=== PATIENT | female | born 1950 | race Caucasian/White ===

== ENCOUNTER 2019-03-19 19:24 | Inpatient (IN) | payer OTHER, MEDICAID ==
[~2019-03-19] VITALS: Ht 154.9 cm; Wt 64.1 kg
[~2019-03-19 19:24] MED LIST: ACET-141 GTB; ACET325T33 GTB; ALBU2.5V3 NEB; AMIN30LI GTB; AMLO1CAP70; ARGI1POW23 GTB; ASC500 GTB; ASPI-817 GTB; BISA10SU55 RC; CEPH500C GTB; CHLO473M4 MM; CLOT15CR6 TOP; CRAN3875 GTB; CRAN425C6 GTB; DESM0.1T; DESM0.1T GTB; DESM0.1T PO; ENOX40DI14 SC; GABA300C16 GTB; GLUC1KIT IJ; HYDR-3029 GTB; IBUP50TA; LACT1CAP57 GTB; LOSA50TA14 PO; MAGN400O19 GTB; MEG40/1 GTB; MELA3TAB17 GTB; METO-448 GTB; MULT-105 GTB; NA P133E39 RC; NOVO3I SC; OMEP40CA38 GTB; ONDA4TAB8 GTB; PANT40TA3 GTB; POTA20LI15 GTB; PRED20TA; SIMV20TA21 PO; UDMYL GTB; ZINC220T3 GTB
[2019-03-19] MEDS ORDERED: VANCOMYCIN 1 GM (PMX) 250 ML IVPB STA (19:30)
[2019-03-19] MEDS ORDERED: PIPER-TAZO 3.375 GM IV (PMX) 100 ML IVPB STA (19:30)
[2019-03-19] MEDS ORDERED: ACETAMINOPHEN 325 MG TAB PO PRN (20:00)
[2019-03-19] MEDS ORDERED: ONDANSETRON 4 MG INJ IV PRN (20:00)
[2019-03-19] MEDS ORDERED: ONDANSETRON 4 MG TAB GTB PRN (23:30)
[2019-03-19] MEDS ORDERED: VANCOMYCIN IV PER PHARMACY XX SCH (23:30)
[2019-03-19] MEDS ORDERED: SOD CHLORIDE 0.9% 1,000 ML IV STA (23:54)
[2019-03-20] VITALS (19 sets, daily range): BP systolic 100–160; BP diastolic 54–90; PULSE 67–110; RESP 18–25; Ht 154.9 cm; Wt 64.1 kg
[2019-03-20] MEDS: SOD CHLORIDE 0.9% 1,000 ML IV SCH ×3 (00:10→21:36)
[2019-03-20] MEDS: ALBUTEROL/IPRATROPIUM (NEB) 3 ML AMP HHN SCH ×4 (06:09→19:31)
[2019-03-20] MEDS ORDERED: VANCOMYCIN 750 MG (PMX) 250 ML IVPB SCH (08:00)
[2019-03-20] MEDS: ZINC SULFATE 220 MG CAP GTB SCH (09:00)
[2019-03-20] MEDS: MULTIVITAMINS 30 ML CUP GTB SCH (09:00)
[2019-03-20] MEDS: ASPIRIN (EC) 81 MG TAB PO SCH (09:00)
[2019-03-20] MEDS: GABAPENTIN 300 MG CAP GTB SCH ×2 (09:00→21:00)
[2019-03-20] MEDS: PANTOPRAZOLE (EC) 40 MG TAB PO SCH (09:00)
[2019-03-20] MEDS: ASCORBIC ACID 500 MG TAB GTB SCH (09:00)
[2019-03-20] MEDS: DESMOPRESSIN 0.1 MG TAB GTB SCH ×2 (09:00→21:00)
[2019-03-20] MEDS: VANCOMYCIN 750 MG (PMX) 250 ML IVPB SCH ×2 (09:29→21:38)
[2019-03-20] MEDS: CEFEPIME 1GM/50 ML (PMX) 50 ML IVPB SCH ×2 (12:06→22:13)
[2019-03-20] MEDS: NS + KCL 20 MEQ 1,000 ML IV SCH ×2 (17:13→23:40)
[2019-03-21] VITALS (35 sets, daily range): BP systolic 93–113; BP diastolic 52–63; PULSE 97–140; RESP 16–38
[2019-03-21] MEDS: ALBUTEROL/IPRATROPIUM (NEB) 3 ML AMP HHN SCH ×4 (01:51→19:31)
[2019-03-21] MEDS: ACETAMINOPHEN 650 MG SUPP PR PRN ×3 (01:57→22:35)
[2019-03-21] MEDS: NS + KCL 20 MEQ 1,000 ML IV SCH ×3 (05:45→21:16)
[2019-03-21] MEDS: ASCORBIC ACID 500 MG TAB GTB SCH (08:53)
[2019-03-21] MEDS: PANTOPRAZOLE (EC) 40 MG TAB PO SCH (08:53)
[2019-03-21] MEDS: GABAPENTIN 300 MG CAP GTB SCH ×2 (08:53→21:00)
[2019-03-21] MEDS: MULTIVITAMINS 30 ML CUP GTB SCH (08:53)
[2019-03-21] MEDS: ZINC SULFATE 220 MG CAP GTB SCH (08:53)
[2019-03-21] MEDS: ASPIRIN (EC) 81 MG TAB PO SCH (08:53)
[2019-03-21] MEDS: DESMOPRESSIN 0.1 MG TAB GTB SCH ×2 (08:53→21:00)
[2019-03-21] MEDS: CEFEPIME 1GM/50 ML (PMX) 50 ML IVPB SCH ×2 (09:04→21:19)
[2019-03-21] MEDS ORDERED: BUPIVACAINE 0.25%/EPI (SDV) 30 ML INJ ONE (10:44)
[2019-03-21] MEDS ORDERED: POVIDONE IODINE 10% 28.4 GM OINT ONE (10:56)
[2019-03-21] MEDS ORDERED: MIDAZOLAM 1 MG/ML 2 ML INJ IV PRN (11:00)
[2019-03-21] MEDS ORDERED: LABETALOL HCL 20MG INJ IV PRN (11:00)
[2019-03-21] MEDS ORDERED: MEPERIDINE 25 MG INJ IV PRN (11:00)
[2019-03-21] MEDS ORDERED: ONDANSETRON 4 MG INJ IV PRN (11:00)
[2019-03-21] MEDS ORDERED: FENTAnyl 50 MCG/ML VIAL IV PRN ×3 (11:00)
[2019-03-21] MEDS ORDERED: hydrALAzine 20 MG INJ IV PRN (11:00)
[2019-03-21] MEDS ORDERED: DIPHENHYDRAMINE 50 MG INJ IV PRN (11:00)
[2019-03-21] MEDS ORDERED: METOCLOPRAMIDE 10 MG INJ IV PRN (11:00)
[2019-03-21] MEDS ORDERED: EPHEDrine 25 MG/5 ML SYG IV PRN (11:00)
[2019-03-21] MEDS ORDERED: ROCURONIUM 50 MG INJ ONE (11:14)
[2019-03-21] MEDS: VANCOMYCIN 500 MG (PMX) 100 ML IVPB SCH (12:51)
[2019-03-21] MEDS ORDERED: DIGOXIN 500 MCG INJ IV ONE (15:00)
[2019-03-21] MEDS: METOPROLOL 5 MG INJ IV PRN (22:35)
[2019-03-21] MEDS: LEVALBUTEROL (NEB) 0.63 MG/3 ML AMP HHN SCH ×2 (22:50→23:06)
[2019-03-21] MEDS: IPRATROPIUM (NEB) 0.5 MG/2.5 ML AMP HHN SCH ×2 (22:50→23:05)
[2019-03-22] VITALS (24 sets, daily range): BP systolic 91–120; BP diastolic 44–60; PULSE 105–134; RESP 18–29
[2019-03-22] MEDS: VANCOMYCIN 500 MG (PMX) 100 ML IVPB SCH ×2 (01:12→13:56)
[2019-03-22] MEDS: NS + KCL 20 MEQ 1,000 ML IV SCH ×6 (02:20→21:38)
[2019-03-22] MEDS: IPRATROPIUM (NEB) 0.5 MG/2.5 ML AMP HHN SCH ×3 (07:49→23:47)
[2019-03-22] MEDS: LEVALBUTEROL (NEB) 0.63 MG/3 ML AMP HHN SCH ×3 (07:49→23:47)
[2019-03-22] MEDS ORDERED: BARIUM SULF 2% 450 ML BTL (BERRY SMOOTHIE) PO ONE (08:00)
[2019-03-22] MEDS: ZINC SULFATE 220 MG CAP GTB SCH (08:45)
[2019-03-22] MEDS: GABAPENTIN 300 MG CAP GTB SCH ×2 (08:45→21:00)
[2019-03-22] MEDS: ASCORBIC ACID 500 MG TAB GTB SCH (08:45)
[2019-03-22] MEDS: DESMOPRESSIN 0.1 MG TAB GTB SCH ×2 (08:45→21:00)
[2019-03-22] MEDS: MULTIVITAMINS 30 ML CUP GTB SCH (08:45)
[2019-03-22] MEDS: ASPIRIN (EC) 81 MG TAB PO SCH (09:00)
[2019-03-22] MEDS: PANTOPRAZOLE (EC) 40 MG TAB PO SCH (09:00)
[2019-03-22] MEDS: MEROPENEM 1 GM/50ML(PMX) 50 ML IVPB SCH ×2 (09:48→21:29)
[2019-03-22] MEDS: ACETAMINOPHEN 650 MG SUPP PR PRN (11:09)
[2019-03-22] MEDS: CEFEPIME 1GM/50 ML (PMX) 50 ML IVPB SCH (13:56)
[2019-03-22] MEDS ORDERED: LORAZEPAM 2 MG INJ IV PRN (19:00)
[2019-03-22] MEDS ORDERED: IOHEXOL 300MG/ML 30 ML BTL ONE (19:38)
[2019-03-22] MEDS: ACYCLOVIR 500 MG in DEXTROSE 5% 100 ML IVPB SCH (22:33)
[2019-03-23] VITALS (24 sets, daily range): BP systolic 100–121; BP diastolic 55–58; PULSE 112–126; RESP 16–23
[2019-03-23] MEDS: VANCOMYCIN 500 MG (PMX) 100 ML IVPB SCH ×2 (00:26→13:14)
[2019-03-23] MEDS: NS + KCL 20 MEQ 1,000 ML IV SCH ×2 (05:00→09:11)
[2019-03-23] MEDS: LEVALBUTEROL (NEB) 0.63 MG/3 ML AMP HHN SCH ×2 (07:47→15:41)
[2019-03-23] MEDS: IPRATROPIUM (NEB) 0.5 MG/2.5 ML AMP HHN SCH ×2 (07:47→15:41)
[2019-03-23] MEDS: ASPIRIN (EC) 81 MG TAB PO SCH (09:00)
[2019-03-23] MEDS: MULTIVITAMINS 30 ML CUP GTB SCH (09:00)
[2019-03-23] MEDS: ASCORBIC ACID 500 MG TAB GTB SCH (09:00)
[2019-03-23] MEDS: ZINC SULFATE 220 MG CAP GTB SCH (09:00)
[2019-03-23] MEDS: GABAPENTIN 300 MG CAP GTB SCH ×2 (09:00→21:00)
[2019-03-23] MEDS: PANTOPRAZOLE (EC) 40 MG TAB PO SCH (09:00)
[2019-03-23] MEDS: DESMOPRESSIN 0.1 MG TAB GTB SCH ×2 (09:00→21:00)
[2019-03-23] MEDS: MEROPENEM 1 GM/50ML(PMX) 50 ML IVPB SCH ×2 (09:10→21:57)
[2019-03-23] MEDS: ENOXAPARIN 30 MG/0.3 ML SYG SC SCH (09:23)
[2019-03-23] MEDS: ACYCLOVIR 500 MG in DEXTROSE 5% 100 ML IVPB SCH ×2 (10:03→23:11)
[2019-03-23] MEDS: FLUCONAZOLE 100 MG/50 ML 50 ML IVPB SCH (16:51)
[2019-03-23] MEDS: DEXTROSE 5% 1,000 ML IV SCH (18:07)
[2019-03-23] MEDS: ATENOLOL 25 MG TAB PO SCH (21:00)
[2019-03-23] MEDS: IPRATROPIUM (HFA) 12.9 GM INHALER INH SCH (23:15)
[2019-03-23] MEDS: LEVALBUTEROL (HFA) 15 GM INHALER INH SCH (23:15)
[2019-03-24] VITALS (22 sets, daily range): BP systolic 96–110; BP diastolic 48–55; PULSE 95–124; RESP 20–22
[2019-03-24] MEDS ORDERED: VANCOMYCIN 1 GM 250 ML IVPB SCH (02:00)
[2019-03-24] MEDS: IPRATROPIUM (HFA) 12.9 GM INHALER INH SCH ×2 (07:05→16:19)
[2019-03-24] MEDS: LEVALBUTEROL (HFA) 15 GM INHALER INH SCH ×2 (07:05→16:19)
[2019-03-24] MEDS: DEXTROSE 5% 1,000 ML IV SCH ×2 (07:20→20:40)
[2019-03-24] MEDS: ASCORBIC ACID 500 MG TAB GTB SCH (09:00)
[2019-03-24] MEDS: DESMOPRESSIN 0.1 MG TAB GTB SCH ×2 (09:00→20:44)
[2019-03-24] MEDS: MULTIVITAMINS 30 ML CUP GTB SCH (09:00)
[2019-03-24] MEDS: ASPIRIN (EC) 81 MG TAB PO SCH (09:00)
[2019-03-24] MEDS: ATENOLOL 25 MG TAB PO SCH ×2 (09:00→20:44)
[2019-03-24] MEDS: PANTOPRAZOLE (EC) 40 MG TAB PO SCH (09:00)
[2019-03-24] MEDS: GABAPENTIN 300 MG CAP GTB SCH ×2 (09:00→20:44)
[2019-03-24] MEDS: ZINC SULFATE 220 MG CAP GTB SCH (09:00)
[2019-03-24] MEDS: MEROPENEM 1 GM/50ML(PMX) 50 ML IVPB SCH ×2 (11:22→21:10)
[2019-03-24] MEDS: ENOXAPARIN 30 MG/0.3 ML SYG SC SCH (11:36)
[2019-03-24] MEDS: ACYCLOVIR 500 MG in DEXTROSE 5% 100 ML IVPB SCH ×2 (11:43→21:10)
[2019-03-24] MEDS: VANCOMYCIN 1 GM 250 ML IVPB SCH (14:22)
[2019-03-24] MEDS: FLUCONAZOLE 100 MG/50 ML 50 ML IVPB SCH (16:25)
[2019-03-25] VITALS (22 sets, daily range): BP systolic 94–119; BP diastolic 51–57; PULSE 74–119; RESP 20–22
[2019-03-25] MEDS: IPRATROPIUM (HFA) 12.9 GM INHALER INH SCH ×4 (08:00→23:50)
[2019-03-25] MEDS: LEVALBUTEROL (HFA) 15 GM INHALER INH SCH ×4 (08:00→23:50)
[2019-03-25] MEDS: ATENOLOL 25 MG TAB PO SCH ×2 (09:00→21:00)
[2019-03-25] MEDS: MEROPENEM 1 GM/50ML(PMX) 50 ML IVPB SCH ×2 (09:50→21:09)
[2019-03-25] MEDS: ACYCLOVIR 500 MG in DEXTROSE 5% 100 ML IVPB SCH ×2 (09:50→21:08)
[2019-03-25] MEDS: MULTIVITAMINS 30 ML CUP GTB SCH (09:51)
[2019-03-25] MEDS: GABAPENTIN 300 MG CAP GTB SCH ×2 (09:51→21:00)
[2019-03-25] MEDS: ASCORBIC ACID 500 MG TAB GTB SCH (09:51)
[2019-03-25] MEDS: ZINC SULFATE 220 MG CAP GTB SCH (09:51)
[2019-03-25] MEDS: DESMOPRESSIN 4 MCG INJ IV SCH ×2 (09:51→21:13)
[2019-03-25] MEDS: ASPIRIN (EC) 81 MG TAB PO SCH (09:51)
[2019-03-25] MEDS: PANTOPRAZOLE (EC) 40 MG TAB PO SCH (09:51)
[2019-03-25] MEDS: DEXTROSE 5% 1,000 ML IV SCH ×2 (10:00→16:36)
[2019-03-25] MEDS: ENOXAPARIN 30 MG/0.3 ML SYG SC SCH (10:43)
[2019-03-25] MEDS ORDERED: SOD CHLORIDE 0.9% 250 ML IV* ONE (10:44)
[2019-03-25] MEDS: VANCOMYCIN 1 GM 250 ML IVPB SCH (12:46)
[2019-03-25] MEDS: FLUCONAZOLE 100 MG/50 ML 50 ML IVPB SCH (16:33)
[2019-03-26] VITALS (23 sets, daily range): BP systolic 92–109; BP diastolic 46–67; PULSE 71–85; RESP 20
[2019-03-26] MEDS: IPRATROPIUM (HFA) 12.9 GM INHALER INH SCH ×3 (08:09→23:05)
[2019-03-26] MEDS: LEVALBUTEROL (HFA) 15 GM INHALER INH SCH ×3 (08:09→23:05)
[2019-03-26] MEDS: DESMOPRESSIN 4 MCG INJ IV SCH (09:00)
[2019-03-26] MEDS: MEROPENEM 1 GM/50ML(PMX) 50 ML IVPB SCH (09:00)
[2019-03-26] MEDS: ACYCLOVIR 500 MG in DEXTROSE 5% 100 ML IVPB SCH ×2 (09:00→20:23)
[2019-03-26] MEDS: ATENOLOL 25 MG TAB PO SCH ×2 (09:00→20:22)
[2019-03-26] MEDS: MULTIVITAMINS 30 ML CUP GTB SCH (09:47)
[2019-03-26] MEDS: ZINC SULFATE 220 MG CAP GTB SCH (09:47)
[2019-03-26] MEDS: PANTOPRAZOLE (EC) 40 MG TAB PO SCH (09:47)
[2019-03-26] MEDS: ASPIRIN (EC) 81 MG TAB PO SCH (09:48)
[2019-03-26] MEDS: ASCORBIC ACID 500 MG TAB GTB SCH (09:48)
[2019-03-26] MEDS: GABAPENTIN 300 MG CAP GTB SCH ×2 (09:48→20:22)
[2019-03-26] MEDS: ENOXAPARIN 30 MG/0.3 ML SYG SC SCH (10:06)
[2019-03-26] MEDS ORDERED: SOD CHLORIDE 0.9% 1,000 ML IV SCH (12:30)
[2019-03-26] MEDS ORDERED: LEVOFLOXACIN 500MG/D5W (PMX) 100 ML IVPB SCH (13:30)
[2019-03-26] MEDS ORDERED: AMIKACIN IV PER PHARMACY XX SCH (13:30)
[2019-03-26] MEDS: FLUCONAZOLE 100 MG/50 ML 50 ML IVPB SCH (17:12)
[2019-03-26] MEDS: AMIKACIN 350 MG in SOD CHLORIDE 0.9% 100 ML IVPB SCH (18:38)
[2019-03-26] MEDS: DEXTROSE 5% 1,000 ML IV SCH (20:22)
[2019-03-27] VITALS (21 sets, daily range): BP systolic 91–110; BP diastolic 49–68; PULSE 75–96; RESP 17–24
[2019-03-27] MEDS: ACCU-CHEK XX SCH (01:00)
[2019-03-27] MEDS: LEVALBUTEROL (HFA) 15 GM INHALER INH SCH ×3 (07:43→23:07)
[2019-03-27] MEDS: IPRATROPIUM (HFA) 12.9 GM INHALER INH SCH ×3 (07:43→23:07)
[2019-03-27] MEDS: DEXTROSE 5% 1,000 ML IV SCH ×2 (08:30→18:38)
[2019-03-27] MEDS: ACYCLOVIR 500 MG in DEXTROSE 5% 100 ML IVPB SCH (08:53)
[2019-03-27] MEDS: ZINC SULFATE 220 MG CAP GTB SCH (09:00)
[2019-03-27] MEDS: MULTIVITAMINS 30 ML CUP GTB SCH (09:00)
[2019-03-27] MEDS: ATENOLOL 25 MG TAB PO SCH ×2 (09:00→21:00)
[2019-03-27] MEDS: DESMOPRESSIN 4 MCG INJ IV SCH (09:00)
[2019-03-27] MEDS: ASCORBIC ACID 500 MG TAB GTB SCH (09:00)
[2019-03-27] MEDS: ASPIRIN (EC) 81 MG TAB PO SCH (09:00)
[2019-03-27] MEDS: PANTOPRAZOLE (EC) 40 MG TAB PO SCH (09:00)
[2019-03-27] MEDS: GABAPENTIN 300 MG CAP GTB SCH ×2 (09:00→21:00)
[2019-03-27] MEDS: ENOXAPARIN 30 MG/0.3 ML SYG SC SCH (09:01)
[2019-03-27] MEDS ORDERED: VANCOMYCIN 1 GM 250 ML IVPB SCH (13:00)
[2019-03-27] MEDS: LEVOFLOXACIN 250MG/D5W (PMX) 50 ML IVPB SCH (14:56)
[2019-03-27] MEDS: FLUCONAZOLE 100 MG/50 ML 50 ML IVPB SCH (16:55)
[2019-03-27] MEDS: AMIKACIN 350 MG in SOD CHLORIDE 0.9% 100 ML IVPB SCH (18:29)
[2019-03-28] VITALS (22 sets, daily range): BP systolic 86–116; BP diastolic 45–72; PULSE 72–101; RESP 20–26
[2019-03-28] MEDS: ACCU-CHEK XX SCH ×5 (01:00→21:00)
[2019-03-28] MEDS: LEVALBUTEROL (HFA) 15 GM INHALER INH SCH ×3 (07:55→23:01)
[2019-03-28] MEDS: IPRATROPIUM (HFA) 12.9 GM INHALER INH SCH ×3 (07:55→23:01)
[2019-03-28] MEDS: ZINC SULFATE 220 MG CAP GTB SCH (08:24)
[2019-03-28] MEDS: ASCORBIC ACID 500 MG TAB GTB SCH (08:24)
[2019-03-28] MEDS: GABAPENTIN 300 MG CAP GTB SCH ×2 (08:24→21:00)
[2019-03-28] MEDS: MULTIVITAMINS 30 ML CUP GTB SCH (08:24)
[2019-03-28] MEDS: ASPIRIN (EC) 81 MG TAB PO SCH (08:28)
[2019-03-28] MEDS: DESMOPRESSIN 4 MCG INJ IV SCH (08:29)
[2019-03-28] MEDS: PANTOPRAZOLE (EC) 40 MG TAB PO SCH (08:29)
[2019-03-28] MEDS: ACETAMINOPHEN 650 MG SUPP PR PRN (08:34)
[2019-03-28] MEDS: ATENOLOL 25 MG TAB PO SCH ×2 (08:34→21:00)
[2019-03-28] MEDS: ENOXAPARIN 30 MG/0.3 ML SYG SC SCH (08:44)
[2019-03-28] MEDS: DEXTROSE 5% 1,000 ML IV SCH (10:43)
[2019-03-28] MEDS ORDERED: TPN 1,000 ML IV SCH (13:00)
[2019-03-28] MEDS: TPN 1,000 ML IV SCH (14:00)
[2019-03-28] MEDS: LEVOFLOXACIN 250MG/D5W (PMX) 50 ML IVPB SCH (14:25)
[2019-03-28] MEDS: FLUCONAZOLE 100 MG/50 ML 50 ML IVPB SCH (17:34)
[2019-03-28] MEDS ORDERED: LIDOCAINE 1% (MPF) 5 ML VIAL SC ONE (18:30)
[2019-03-28] MEDS: AMIKACIN 350 MG in SOD CHLORIDE 0.9% 100 ML IVPB SCH (18:53)
[2019-03-28] MEDS ORDERED: SOD CHLORIDE 0.9% 1,000 ML IV ONE (23:00)
[2019-03-28] MEDS ORDERED: ALBUMIN HUMAN 25% 50 ML IV ONE (23:00)
[2019-03-29] VITALS (25 sets, daily range): BP systolic 86–153; BP diastolic 44–78; PULSE 73–94; RESP 18–26
[2019-03-29] MEDS: ACCU-CHEK XX SCH ×6 (01:00→23:59)
[2019-03-29] MEDS: TPN 1,000 ML IV SCH ×2 (01:30→13:03)
[2019-03-29] MEDS: MULTIVITAMINS 30 ML CUP GTB SCH (08:37)
[2019-03-29] MEDS: GABAPENTIN 300 MG CAP GTB SCH ×2 (08:37→21:50)
[2019-03-29] MEDS: ZINC SULFATE 220 MG CAP GTB SCH (08:38)
[2019-03-29] MEDS: ASCORBIC ACID 500 MG TAB GTB SCH (08:38)
[2019-03-29] MEDS: ATENOLOL 25 MG TAB PO SCH ×2 (08:38→21:40)
[2019-03-29] MEDS: PANTOPRAZOLE (EC) 40 MG TAB PO SCH (08:38)
[2019-03-29] MEDS: ASPIRIN (EC) 81 MG TAB PO SCH (08:38)
[2019-03-29] MEDS: DESMOPRESSIN 4 MCG INJ IV SCH (08:39)
[2019-03-29] MEDS: ENOXAPARIN 30 MG/0.3 ML SYG SC SCH (08:39)
[2019-03-29] MEDS: IPRATROPIUM (HFA) 12.9 GM INHALER INH SCH ×3 (09:17→23:39)
[2019-03-29] MEDS: LEVALBUTEROL (HFA) 15 GM INHALER INH SCH ×3 (09:17→23:40)
[2019-03-29] MEDS ORDERED: PROPOFOL 20 ML ONE (11:11)
[2019-03-29] MEDS: LEVOFLOXACIN 250MG/D5W (PMX) 50 ML IVPB SCH (14:02)
[2019-03-29] MEDS: FLUCONAZOLE 100 MG/50 ML 50 ML IVPB SCH (15:41)
[2019-03-29] MEDS: AMIKACIN 350 MG in SOD CHLORIDE 0.9% 100 ML IVPB SCH (17:26)
[2019-03-30] VITALS (22 sets, daily range): BP systolic 103–108; BP diastolic 54–67; PULSE 78–94; RESP 18–24
[2019-03-30] MEDS: morphine 2 MG INJ IV PRN (00:01)
[2019-03-30] MEDS: ACCU-CHEK XX SCH ×6 (02:55→21:49)
[2019-03-30] MEDS: INSULIN ASPART [NOVOLOG] 3 ML PEN SC SCH ×5 (05:25→21:00)
[2019-03-30] MEDS: TPN 1,000 ML IV SCH (06:15)
[2019-03-30] MEDS ORDERED: POTASSIUM CHLORIDE (SR) 20 MEQ TAB PO STA (08:06)
[2019-03-30] MEDS: IPRATROPIUM (HFA) 12.9 GM INHALER INH SCH ×3 (08:41→23:12)
[2019-03-30] MEDS: LEVALBUTEROL (HFA) 15 GM INHALER INH SCH ×3 (08:42→23:12)
[2019-03-30] MEDS: MULTIVITAMINS 30 ML CUP GTB SCH (09:52)
[2019-03-30] MEDS: ASPIRIN (EC) 81 MG TAB PO SCH (09:53)
[2019-03-30] MEDS: ATENOLOL 25 MG TAB PO SCH ×2 (09:53→21:00)
[2019-03-30] MEDS: GABAPENTIN 300 MG CAP GTB SCH ×2 (09:54→21:00)
[2019-03-30] MEDS: PANTOPRAZOLE (EC) 40 MG TAB PO SCH (09:54)
[2019-03-30] MEDS: ASCORBIC ACID 500 MG TAB GTB SCH (09:54)
[2019-03-30] MEDS: ZINC SULFATE 220 MG CAP GTB SCH (09:54)
[2019-03-30] MEDS: DESMOPRESSIN 4 MCG INJ IV SCH (09:55)
[2019-03-30] MEDS: ENOXAPARIN 30 MG/0.3 ML SYG SC SCH (10:04)
[2019-03-30] MEDS ORDERED: POTASSIUM CHLORIDE 20 MEQ POWDER FOR ORAL SOLN GTB ONE (13:30)
[2019-03-30] MEDS: LEVOFLOXACIN 250MG/D5W (PMX) 50 ML IVPB SCH (15:22)
[2019-03-30] MEDS: FLUCONAZOLE 100 MG/50 ML 50 ML IVPB SCH (17:59)
[2019-03-30] MEDS: AMIKACIN 350 MG in SOD CHLORIDE 0.9% 100 ML IVPB SCH (19:01)
[2019-03-31] VITALS (21 sets, daily range): BP systolic 90–97; BP diastolic 44–56; PULSE 77–110; RESP 18–23
[2019-03-31] MEDS: INSULIN ASPART [NOVOLOG] 3 ML PEN SC SCH ×6 (01:00→20:56)
[2019-03-31] MEDS: ACCU-CHEK XX SCH ×6 (01:09→20:56)
[2019-03-31] MEDS: ACETAMINOPHEN 650MG/20.3ML CUP GTB PRN ×2 (04:35→23:22)
[2019-03-31] MEDS: IPRATROPIUM (HFA) 12.9 GM INHALER INH SCH ×3 (07:46→23:15)
[2019-03-31] MEDS: LEVALBUTEROL (HFA) 15 GM INHALER INH SCH ×3 (07:46→23:15)
[2019-03-31] MEDS: ATENOLOL 25 MG TAB PO SCH ×2 (09:00→20:43)
[2019-03-31] MEDS: DESMOPRESSIN 4 MCG INJ IV SCH (09:14)
[2019-03-31] MEDS: MULTIVITAMINS 30 ML CUP GTB SCH (09:14)
[2019-03-31] MEDS: ZINC SULFATE 220 MG CAP GTB SCH (09:15)
[2019-03-31] MEDS: GABAPENTIN 300 MG CAP GTB SCH ×2 (09:16→20:42)
[2019-03-31] MEDS: ASCORBIC ACID 500 MG TAB GTB SCH (09:16)
[2019-03-31] MEDS: ASPIRIN (EC) 81 MG TAB PO SCH (09:16)
[2019-03-31] MEDS: ENOXAPARIN 30 MG/0.3 ML SYG SC SCH (09:17)
[2019-03-31] MEDS: LANSOPRAZOLE 30 MG CAP GTB SCH (09:21)
[2019-03-31] MEDS ORDERED: VANCOMYCIN IV PER PHARMACY XX SCH (12:30)
[2019-03-31] MEDS ORDERED: ONDANSETRON 4 MG INJ IV PRN (14:00)
[2019-03-31] MEDS: SOD CHLORIDE 0.9% 1,000 ML IV SCH (14:08)
[2019-03-31] MEDS: MEROPENEM 1 GM/50ML(PMX) 50 ML IVPB SCH ×2 (14:08→20:43)
[2019-03-31] MEDS: VANCOMYCIN 1 GM 250 ML IVPB SCH (15:02)
[2019-03-31] MEDS: FLUCONAZOLE 100 MG TAB PO SCH (17:20)
[2019-04-01] VITALS (25 sets, daily range): BP systolic 78–100; BP diastolic 39–48; PULSE 62–96; RESP 18–20
[2019-04-01] MEDS: ACCU-CHEK XX SCH ×6 (01:00→21:13)
[2019-04-01] MEDS: INSULIN ASPART [NOVOLOG] 3 ML PEN SC SCH ×6 (01:00→21:00)
[2019-04-01] MEDS: SOD CHLORIDE 0.9% 1,000 ML IV SCH ×3 (05:37→20:55)
[2019-04-01] MEDS: LANSOPRAZOLE 30 MG CAP GTB SCH (05:37)
[2019-04-01] MEDS: IPRATROPIUM (HFA) 12.9 GM INHALER INH SCH ×3 (08:11→23:26)
[2019-04-01] MEDS: LEVALBUTEROL (HFA) 15 GM INHALER INH SCH ×3 (08:11→23:26)
[2019-04-01] MEDS: MULTIVITAMINS 30 ML CUP GTB SCH (08:59)
[2019-04-01] MEDS: MEROPENEM 1 GM/50ML(PMX) 50 ML IVPB SCH ×2 (08:59→20:55)
[2019-04-01] MEDS: ASCORBIC ACID 500 MG TAB GTB SCH (09:00)
[2019-04-01] MEDS: GABAPENTIN 300 MG CAP GTB SCH ×2 (09:00→20:55)
[2019-04-01] MEDS: ATENOLOL 25 MG TAB PO SCH ×2 (09:00→21:00)
[2019-04-01] MEDS: ASPIRIN (EC) 81 MG TAB PO SCH (09:00)
[2019-04-01] MEDS: ZINC SULFATE 220 MG CAP GTB SCH (09:00)
[2019-04-01] MEDS: DESMOPRESSIN 4 MCG INJ IV SCH (09:01)
[2019-04-01] MEDS: ENOXAPARIN 30 MG/0.3 ML SYG SC SCH (09:09)
[2019-04-01] MEDS ORDERED: SOD CHLORIDE 0.9% 500 ML IV ONE (09:30)
[2019-04-01] MEDS: ACETAMINOPHEN 650MG/20.3ML CUP GTB PRN (13:58)
[2019-04-01] MEDS: FLUCONAZOLE 100 MG TAB PO SCH (17:13)
[2019-04-02] VITALS (20 sets, daily range): BP systolic 78–108; BP diastolic 39–61; PULSE 75–94; RESP 16–23
[2019-04-02] MEDS: INSULIN ASPART [NOVOLOG] 3 ML PEN SC SCH ×6 (01:00→21:00)
[2019-04-02] MEDS: ACCU-CHEK XX SCH ×6 (01:40→21:31)
[2019-04-02] MEDS: LANSOPRAZOLE 30 MG CAP GTB SCH (05:48)
[2019-04-02] MEDS ORDERED: DEXTROSE 50% 50 ML SYRINGE IV ONE (06:00)
[2019-04-02] MEDS: SOD CHLORIDE 0.9% 1,000 ML IV SCH (06:38)
[2019-04-02] MEDS: IPRATROPIUM (HFA) 12.9 GM INHALER INH SCH ×2 (07:40→15:20)
[2019-04-02] MEDS: LEVALBUTEROL (HFA) 15 GM INHALER INH SCH ×2 (07:40→15:20)
[2019-04-02] MEDS: MEROPENEM 1 GM/50ML(PMX) 50 ML IVPB SCH ×2 (08:51→20:53)
[2019-04-02] MEDS: MULTIVITAMINS 30 ML CUP GTB SCH (08:51)
[2019-04-02] MEDS: ASCORBIC ACID 500 MG TAB GTB SCH (08:52)
[2019-04-02] MEDS: ASPIRIN (EC) 81 MG TAB PO SCH (08:52)
[2019-04-02] MEDS: ZINC SULFATE 220 MG CAP GTB SCH (08:52)
[2019-04-02] MEDS: GABAPENTIN 300 MG CAP GTB SCH ×2 (08:52→20:53)
[2019-04-02] MEDS: ATENOLOL 25 MG TAB PO SCH ×2 (08:52→20:53)
[2019-04-02] MEDS: ENOXAPARIN 30 MG/0.3 ML SYG SC SCH (08:58)
[2019-04-02] MEDS: D5W-0.45 NACL + KCL 20 MEQ 1,000 ML IV SCH ×2 (10:53→21:00)
[2019-04-02] MEDS: DESMOPRESSIN 4 MCG INJ IV SCH (10:53)
[2019-04-02] MEDS: VANCOMYCIN 1 GM 250 ML IVPB SCH (14:43)
[2019-04-02] MEDS: FLUCONAZOLE 100 MG TAB PO SCH (17:35)
[2019-04-03] VITALS (20 sets, daily range): BP systolic 96–109; BP diastolic 48–71; PULSE 65–90; RESP 16–24
[2019-04-03] MEDS: LEVALBUTEROL (HFA) 15 GM INHALER INH SCH ×3 (00:30→16:30)
[2019-04-03] MEDS: IPRATROPIUM (HFA) 12.9 GM INHALER INH SCH ×3 (00:31→16:30)
[2019-04-03] MEDS: ACCU-CHEK XX SCH (01:00)
[2019-04-03] MEDS: D5W-0.45 NACL + KCL 20 MEQ 1,000 ML IV SCH ×2 (02:12→18:29)
[2019-04-03] MEDS: INSULIN ASPART [NOVOLOG] 3 ML PEN SC SCH ×4 (06:00→17:25)
[2019-04-03] MEDS: LANSOPRAZOLE 30 MG CAP GTB SCH (06:15)
[2019-04-03] MEDS: ATENOLOL 25 MG TAB PO SCH ×2 (08:36→20:49)
[2019-04-03] MEDS: MULTIVITAMINS 30 ML CUP GTB SCH (08:44)
[2019-04-03] MEDS: MEROPENEM 1 GM/50ML(PMX) 50 ML IVPB SCH ×2 (08:45→20:48)
[2019-04-03] MEDS: ASCORBIC ACID 500 MG TAB GTB SCH (08:45)
[2019-04-03] MEDS: ZINC SULFATE 220 MG CAP GTB SCH (08:45)
[2019-04-03] MEDS: ASPIRIN (EC) 81 MG TAB PO SCH (08:45)
[2019-04-03] MEDS: GABAPENTIN 300 MG CAP GTB SCH ×2 (08:45→20:48)
[2019-04-03] MEDS: ENOXAPARIN 30 MG/0.3 ML SYG SC SCH (09:00)
[2019-04-03] MEDS: DESMOPRESSIN 4 MCG INJ IV SCH (09:24)
[2019-04-03] MEDS: METOCLOPRAMIDE 10 MG INJ IV PRN (17:29)
[2019-04-03] MEDS: FLUCONAZOLE 100 MG TAB PO SCH (17:29)
[2019-04-04] VITALS (44 sets, daily range): BP systolic 65–120; BP diastolic 34–88; PULSE 62–118; RESP 16–24
[2019-04-04] MEDS: METOCLOPRAMIDE 10 MG INJ IV PRN ×2 (00:03→06:31)
[2019-04-04] MEDS: INSULIN ASPART [NOVOLOG] 3 ML PEN SC SCH ×4 (05:51→17:29)
[2019-04-04] MEDS: LANSOPRAZOLE 30 MG CAP GTB SCH (05:51)
[2019-04-04] MEDS: D5W-0.45 NACL + KCL 20 MEQ 1,000 ML IV SCH ×2 (06:07→20:18)
[2019-04-04] MEDS: ATENOLOL 25 MG TAB PO SCH (09:00)
[2019-04-04] MEDS: MULTIVITAMINS 30 ML CUP GTB SCH (09:22)
[2019-04-04] MEDS: GABAPENTIN 300 MG CAP GTB SCH ×2 (09:22→20:18)
[2019-04-04] MEDS: ASPIRIN (EC) 81 MG TAB PO SCH (09:22)
[2019-04-04] MEDS: ASCORBIC ACID 500 MG TAB GTB SCH (09:22)
[2019-04-04] MEDS: MEROPENEM 1 GM/50ML(PMX) 50 ML IVPB SCH ×2 (09:22→20:18)
[2019-04-04] MEDS: ZINC SULFATE 220 MG CAP GTB SCH (09:22)
[2019-04-04] MEDS: DESMOPRESSIN 4 MCG INJ IV SCH (09:22)
[2019-04-04] MEDS: ENOXAPARIN 30 MG/0.3 ML SYG SC SCH (09:41)
[2019-04-04] MEDS: LEVALBUTEROL (HFA) 15 GM INHALER INH SCH ×3 (11:46→14:51)
[2019-04-04] MEDS: IPRATROPIUM (HFA) 12.9 GM INHALER INH SCH ×3 (11:46→14:51)
[2019-04-04] MEDS ORDERED: ALBUMIN HUMAN 5% 250 ML IV ONE (12:06)
[2019-04-04] MEDS ORDERED: SOD CHLORIDE 0.9% 250 ML IV ONE (12:30)
[2019-04-04] MEDS ORDERED: SOD CHLORIDE 0.9% 1,000 ML IV ONE (14:30)
[2019-04-04] MEDS ORDERED: ALBUMIN HUMAN 25% 50 ML IV ONE (14:30)
[2019-04-04] MEDS ORDERED: NORepinephrine 8MG/250 ML (PMX 250 ML IV SCH (15:00)
[2019-04-04] MEDS: VANCOMYCIN 1 GM 250 ML IVPB SCH (17:01)
[2019-04-04] MEDS ORDERED: CASPOFUNGIN 70 MG in SOD CHLORIDE 0.9% 250 ML IVPB ONE (18:00)
[2019-04-04] MEDS: ALBUMIN HUMAN 25% 100 ML IV SCH (18:30)
[2019-04-04] MEDS: DESMOPRESSIN 0.1 MG TAB GTB SCH (20:18)
[2019-04-05] VITALS (82 sets, daily range): BP systolic 56–152; BP diastolic 34–109; PULSE 53–91; RESP 14–38
[2019-04-05] MEDS: IPRATROPIUM (HFA) 12.9 GM INHALER INH SCH ×4 (00:08→23:46)
[2019-04-05] MEDS: LEVALBUTEROL (HFA) 15 GM INHALER INH SCH ×4 (00:08→23:46)
[2019-04-05] MEDS: ALBUMIN HUMAN 25% 100 ML IV SCH ×2 (02:36→10:43)
[2019-04-05] MEDS: DAKINS 0.0125%(1/40) 473 ML SOLUTION TP SCH ×3 (03:51→20:45)
[2019-04-05] MEDS: INSULIN ASPART [NOVOLOG] 3 ML PEN SC SCH ×4 (05:49→17:11)
[2019-04-05] MEDS: LANSOPRAZOLE 30 MG CAP GTB SCH (05:49)
[2019-04-05] MEDS: ZINC SULFATE 220 MG CAP GTB SCH (09:15)
[2019-04-05] MEDS: DESMOPRESSIN 0.1 MG TAB GTB SCH ×2 (09:16→20:44)
[2019-04-05] MEDS: GABAPENTIN 300 MG CAP GTB SCH ×2 (09:17→20:44)
[2019-04-05] MEDS: ASPIRIN (EC) 81 MG TAB PO SCH (09:17)
[2019-04-05] MEDS: ASCORBIC ACID 500 MG TAB GTB SCH (09:18)
[2019-04-05] MEDS: MEROPENEM 1 GM/50ML(PMX) 50 ML IVPB SCH ×2 (09:19→20:44)
[2019-04-05] MEDS: MULTIVITAMINS 30 ML CUP GTB SCH (09:19)
[2019-04-05] MEDS: ENOXAPARIN 30 MG/0.3 ML SYG SC SCH (09:27)
[2019-04-05] MEDS ORDERED: GLUCAGON 1 MG INJ IM PRN (09:30)
[2019-04-05] MEDS ORDERED: GLUCOSE GEL 15 GRAM TUBE BUCCAL PRN (09:30)
[2019-04-05] MEDS ORDERED: DEXTROSE 50% 50 ML SYRINGE IV PRN (09:30)
[2019-04-05] MEDS ORDERED: GLUCOSE GEL 15 GRAM TUBE PO PRN ×2 (09:30)
[2019-04-05] MEDS: D5W-0.45 NACL + KCL 20 MEQ 1,000 ML IV SCH ×2 (10:43→15:30)
[2019-04-05] MEDS: morphine 2 MG INJ IV PRN (17:11)
[2019-04-05] MEDS: CASPOFUNGIN 50 MG in SOD CHLORIDE 0.9% 250 ML IVPB SCH (17:11)
[2019-04-05] MEDS ORDERED: METOCLOPRAMIDE 10 MG INJ IV PRN (19:50)
[2019-04-06] VITALS (80 sets, daily range): BP systolic 55–159; BP diastolic 23–111; PULSE 72–115; RESP 17–33
[2019-04-06] MEDS: LANSOPRAZOLE 30 MG CAP GTB SCH (05:45)
[2019-04-06] MEDS: INSULIN ASPART [NOVOLOG] 3 ML PEN SC SCH ×5 (05:45→23:51)
[2019-04-06] MEDS ORDERED: NORepinephrine 8MG/250 ML (PMX 250 ML IV SCH ×2 (09:30→19:00)
[2019-04-06] MEDS: LEVALBUTEROL (HFA) 15 GM INHALER INH SCH ×3 (10:04→23:13)
[2019-04-06] MEDS: IPRATROPIUM (HFA) 12.9 GM INHALER INH SCH ×3 (10:04→23:14)
[2019-04-06] MEDS: DESMOPRESSIN 0.1 MG TAB GTB SCH ×2 (10:26→21:16)
[2019-04-06] MEDS: ZINC SULFATE 220 MG CAP GTB SCH (10:26)
[2019-04-06] MEDS: GABAPENTIN 300 MG CAP GTB SCH ×2 (10:26→21:16)
[2019-04-06] MEDS: MULTIVITAMINS 30 ML CUP GTB SCH (10:26)
[2019-04-06] MEDS: ASCORBIC ACID 500 MG TAB GTB SCH (10:26)
[2019-04-06] MEDS: ASPIRIN (EC) 81 MG TAB PO SCH (10:26)
[2019-04-06] MEDS: MEROPENEM 1 GM/50ML(PMX) 50 ML IVPB SCH (10:27)
[2019-04-06] MEDS: ENOXAPARIN 30 MG/0.3 ML SYG SC SCH (10:28)
[2019-04-06] MEDS: DAKINS 0.0125%(1/40) 473 ML SOLUTION TP SCH ×2 (10:29→22:12)
[2019-04-06] MEDS: D5W-0.45 NACL + KCL 20 MEQ 1,000 ML IV SCH (12:52)
[2019-04-06] MEDS: VANCOMYCIN 1 GM 250 ML IVPB SCH (14:30)
[2019-04-06] MEDS: CASPOFUNGIN 50 MG in SOD CHLORIDE 0.9% 250 ML IVPB SCH (16:41)
[2019-04-06] MEDS ORDERED: AMIKACIN IV PER PHARMACY XX SCH (18:00)
[2019-04-06] MEDS: DOXYCYCLINE 100 MG TAB PO SCH (21:16)
[2019-04-06] MEDS: METOPROLOL 5 MG INJ IV PRN (21:24)
[2019-04-06] MEDS: morphine 2 MG INJ IV PRN (22:02)
[2019-04-06] MEDS: AMIKACIN 425 MG in SOD CHLORIDE 0.9% 100 ML IVPB SCH (22:12)
[2019-04-06] MEDS: FENTAnyl (DRIP) 1000 mcg/100mL 100 ML IV SCH (23:55)
[2019-04-07] VITALS (70 sets, daily range): BP systolic 94–130; BP diastolic 33–78; PULSE 78–131; RESP 18–33
[2019-04-07] MEDS: D5W-0.45 NACL + KCL 20 MEQ 1,000 ML IV SCH (04:10)
[2019-04-07] MEDS: INSULIN ASPART [NOVOLOG] 3 ML PEN SC SCH ×3 (05:25→17:46)
[2019-04-07] MEDS: LANSOPRAZOLE 30 MG CAP GTB SCH (05:26)
[2019-04-07] MEDS: IPRATROPIUM (HFA) 12.9 GM INHALER INH SCH ×3 (07:52→23:00)
[2019-04-07] MEDS: LEVALBUTEROL (HFA) 15 GM INHALER INH SCH ×3 (07:52→23:00)
[2019-04-07] MEDS ORDERED: NA BICARBONATE 8.4% 50 ML SYG IV ONE (08:30)
[2019-04-07] MEDS: ZINC SULFATE 220 MG CAP GTB SCH (08:46)
[2019-04-07] MEDS: MULTIVITAMINS 30 ML CUP GTB SCH (08:46)
[2019-04-07] MEDS: ASPIRIN (EC) 81 MG TAB PO SCH (08:46)
[2019-04-07] MEDS: DESMOPRESSIN 0.1 MG TAB GTB SCH ×2 (08:46→21:39)
[2019-04-07] MEDS: ASCORBIC ACID 500 MG TAB GTB SCH (08:46)
[2019-04-07] MEDS: DOXYCYCLINE 100 MG TAB PO SCH ×2 (08:46→21:39)
[2019-04-07] MEDS: GABAPENTIN 300 MG CAP GTB SCH ×2 (08:46→21:39)
[2019-04-07] MEDS: DAKINS 0.0125%(1/40) 473 ML SOLUTION TP SCH ×2 (08:47→21:40)
[2019-04-07] MEDS: ENOXAPARIN 30 MG/0.3 ML SYG SC SCH (09:02)
[2019-04-07] MEDS: SODIUM BICARBONATE (IV ADD) 100 MEQ in DEXTROSE 5% 1,000 ML IV SCH ×2 (09:47→21:39)
[2019-04-07] MEDS: CASPOFUNGIN 50 MG in SOD CHLORIDE 0.9% 250 ML IVPB SCH (17:46)
[2019-04-07] MEDS: AMIKACIN 425 MG in SOD CHLORIDE 0.9% 100 ML IVPB SCH (21:40)
[2019-04-08] VITALS (59 sets, daily range): BP systolic 91–130; BP diastolic 43–83; PULSE 71–106; RESP 16–28
[2019-04-08] MEDS: INSULIN ASPART [NOVOLOG] 3 ML PEN SC SCH ×4 (05:41→17:32)
[2019-04-08] MEDS: LANSOPRAZOLE 30 MG CAP GTB SCH (05:42)
[2019-04-08] MEDS: IPRATROPIUM (HFA) 12.9 GM INHALER INH SCH ×2 (07:10→16:50)
[2019-04-08] MEDS: LEVALBUTEROL (HFA) 15 GM INHALER INH SCH ×2 (07:10→16:50)
[2019-04-08] MEDS: FENTAnyl (DRIP) 1000 mcg/100mL 100 ML IV SCH (08:30)
[2019-04-08] MEDS: MULTIVITAMINS 30 ML CUP GTB SCH (09:48)
[2019-04-08] MEDS: ASPIRIN (EC) 81 MG TAB PO SCH (09:48)
[2019-04-08] MEDS: ZINC SULFATE 220 MG CAP GTB SCH (09:48)
[2019-04-08] MEDS: GABAPENTIN 300 MG CAP GTB SCH ×2 (09:48→21:15)
[2019-04-08] MEDS: DESMOPRESSIN 0.1 MG TAB GTB SCH ×2 (09:48→21:15)
[2019-04-08] MEDS: DOXYCYCLINE 100 MG TAB PO SCH ×2 (09:48→21:15)
[2019-04-08] MEDS: ASCORBIC ACID 500 MG TAB GTB SCH (09:48)
[2019-04-08] MEDS: DAKINS 0.0125%(1/40) 473 ML SOLUTION TP SCH ×2 (09:49→21:19)
[2019-04-08] MEDS: ENOXAPARIN 30 MG/0.3 ML SYG SC SCH (09:50)
[2019-04-08] MEDS: SODIUM BICARBONATE (IV ADD) 100 MEQ in DEXTROSE 5% 1,000 ML IV SCH ×2 (11:40→13:10)
[2019-04-08] MEDS ORDERED: FUROSEMIDE 20 MG INJ IV ONE (13:00)
[2019-04-08] MEDS ORDERED: LEVOFLOXACIN 500MG/D5W (PMX) 100 ML IVPB SCH (13:30)
[2019-04-08] MEDS: CASPOFUNGIN 50 MG in SOD CHLORIDE 0.9% 250 ML IVPB SCH (17:36)
[2019-04-08] MEDS: ACETAMINOPHEN 650MG/20.3ML CUP GTB PRN (21:14)
[2019-04-08] MEDS: AMIKACIN 425 MG in SOD CHLORIDE 0.9% 100 ML IVPB SCH (22:08)
[2019-04-09] VITALS (54 sets, daily range): BP systolic 89–148; BP diastolic 49–88; PULSE 76–110; RESP 16–37
[2019-04-09] MEDS: LEVALBUTEROL (HFA) 15 GM INHALER INH SCH ×4 (01:14→23:51)
[2019-04-09] MEDS: IPRATROPIUM (HFA) 12.9 GM INHALER INH SCH ×4 (01:14→23:51)
[2019-04-09] MEDS: SODIUM BICARBONATE (IV ADD) 100 MEQ in DEXTROSE 5% 1,000 ML IV SCH ×2 (03:22→19:00)
[2019-04-09] MEDS: LANSOPRAZOLE 30 MG CAP GTB SCH (06:40)
[2019-04-09] MEDS: INSULIN ASPART [NOVOLOG] 3 ML PEN SC SCH ×4 (06:48→17:28)
[2019-04-09] MEDS: DESMOPRESSIN 0.1 MG TAB GTB SCH ×2 (09:15→20:25)
[2019-04-09] MEDS: ASPIRIN (EC) 81 MG TAB PO SCH (09:16)
[2019-04-09] MEDS: GABAPENTIN 300 MG CAP GTB SCH ×2 (09:16→20:25)
[2019-04-09] MEDS: DAKINS 0.0125%(1/40) 473 ML SOLUTION TP SCH ×2 (09:16→20:34)
[2019-04-09] MEDS: ASCORBIC ACID 500 MG TAB GTB SCH (09:16)
[2019-04-09] MEDS: ZINC SULFATE 220 MG CAP GTB SCH (09:16)
[2019-04-09] MEDS: MULTIVITAMINS 30 ML CUP GTB SCH (09:16)
[2019-04-09] MEDS: DOXYCYCLINE 100 MG TAB PO SCH ×2 (09:16→20:25)
[2019-04-09] MEDS: ENOXAPARIN 30 MG/0.3 ML SYG SC SCH (09:17)
[2019-04-09] MEDS: LEVOFLOXACIN 250MG/D5W (PMX) 50 ML IVPB SCH (12:16)
[2019-04-09] MEDS: FUROSEMIDE 20 MG INJ IV SCH (12:17)
[2019-04-09] MEDS: CASPOFUNGIN 50 MG in SOD CHLORIDE 0.9% 250 ML IVPB SCH (17:28)
[2019-04-10] VITALS (43 sets, daily range): BP systolic 84–162; BP diastolic 56–96; PULSE 75–110; RESP 15–26
[2019-04-10] MEDS: INSULIN ASPART [NOVOLOG] 3 ML PEN SC SCH ×4 (00:11→18:00)
[2019-04-10] MEDS: LANSOPRAZOLE 30 MG CAP GTB SCH (06:10)
[2019-04-10] MEDS ORDERED: FUROSEMIDE 20 MG INJ IV SCH (09:00)
[2019-04-10] MEDS: LEVALBUTEROL (HFA) 15 GM INHALER INH SCH ×3 (09:02→23:14)
[2019-04-10] MEDS: IPRATROPIUM (HFA) 12.9 GM INHALER INH SCH ×3 (09:03→23:14)
[2019-04-10] MEDS: DESMOPRESSIN 0.1 MG TAB GTB SCH ×2 (09:32→20:56)
[2019-04-10] MEDS: DOXYCYCLINE 100 MG TAB PO SCH ×2 (09:32→20:55)
[2019-04-10] MEDS: MULTIVITAMINS 30 ML CUP GTB SCH (09:32)
[2019-04-10] MEDS: GABAPENTIN 300 MG CAP GTB SCH ×2 (09:32→20:55)
[2019-04-10] MEDS: ASPIRIN 81 MG TAB GTB SCH (09:33)
[2019-04-10] MEDS: ASCORBIC ACID 500 MG TAB GTB SCH (09:33)
[2019-04-10] MEDS: FUROSEMIDE 20 MG INJ IV SCH (09:33)
[2019-04-10] MEDS: ZINC SULFATE 220 MG CAP GTB SCH (09:33)
[2019-04-10] MEDS: ENOXAPARIN 30 MG/0.3 ML SYG SC SCH (09:35)
[2019-04-10] MEDS: DAKINS 0.0125%(1/40) 473 ML SOLUTION TP SCH ×2 (09:35→22:51)
[2019-04-10] MEDS: LEVOFLOXACIN 250MG/D5W (PMX) 50 ML IVPB SCH (13:06)
[2019-04-10] MEDS ORDERED: IOHEXOL 14.3 MG(I)/ML (ADULT) BTL PO ONE (17:00)
[2019-04-10] MEDS: CASPOFUNGIN 50 MG in SOD CHLORIDE 0.9% 250 ML IVPB SCH (17:44)
[2019-04-10] MEDS: AMIKACIN 425 MG in SOD CHLORIDE 0.9% 100 ML IVPB SCH (17:48)
[2019-04-10] MEDS ORDERED: SOD CHLORIDE 0.9% 100 ML ONE (20:22)
[2019-04-10] MEDS ORDERED: IOHEXOL 300MG/ML 150 ML BTL ONE (20:22)
[2019-04-10] MEDS: ACETAMINOPHEN 650MG/20.3ML CUP GTB PRN (21:15)
[2019-04-11] VITALS (47 sets, daily range): BP systolic 90–144; BP diastolic 32–102; PULSE 66–98; RESP 16–24
[2019-04-11] MEDS: INSULIN ASPART [NOVOLOG] 3 ML PEN SC SCH ×4 (05:19→18:00)
[2019-04-11] MEDS: ACETAMINOPHEN 650MG/20.3ML CUP GTB PRN (05:20)
[2019-04-11] MEDS: LANSOPRAZOLE 30 MG CAP GTB SCH (06:20)
[2019-04-11] MEDS: LEVALBUTEROL (HFA) 15 GM INHALER INH SCH ×3 (08:45→23:54)
[2019-04-11] MEDS: IPRATROPIUM (HFA) 12.9 GM INHALER INH SCH ×3 (08:45→23:54)
[2019-04-11] MEDS: DOXYCYCLINE 100 MG TAB PO SCH ×2 (09:24→21:13)
[2019-04-11] MEDS: GABAPENTIN 300 MG CAP GTB SCH ×2 (09:25→21:13)
[2019-04-11] MEDS: ASPIRIN 81 MG TAB GTB SCH (09:25)
[2019-04-11] MEDS: ZINC SULFATE 220 MG CAP GTB SCH (09:25)
[2019-04-11] MEDS: ASCORBIC ACID 500 MG TAB GTB SCH (09:25)
[2019-04-11] MEDS: DESMOPRESSIN 0.1 MG TAB GTB SCH ×2 (09:25→21:13)
[2019-04-11] MEDS: MULTIVITAMINS 30 ML CUP GTB SCH (09:25)
[2019-04-11] MEDS: DAKINS 0.0125%(1/40) 473 ML SOLUTION TP SCH ×2 (09:26→21:13)
[2019-04-11] MEDS: ENOXAPARIN 30 MG/0.3 ML SYG SC SCH (09:26)
[2019-04-11] MEDS: FUROSEMIDE 20 MG INJ IV SCH (09:27)
[2019-04-11] MEDS: LEVOFLOXACIN 250MG/D5W (PMX) 50 ML IVPB SCH (13:29)
[2019-04-11] MEDS: morphine 2 MG INJ IV PRN (13:31)
[2019-04-11] MEDS: CASPOFUNGIN 50 MG in SOD CHLORIDE 0.9% 250 ML IVPB SCH (18:27)
[2019-04-12] VITALS (55 sets, daily range): BP systolic 93–156; BP diastolic 42–131; PULSE 70–104; RESP 16–30
[2019-04-12] MEDS: AMIKACIN 425 MG in SOD CHLORIDE 0.9% 100 ML IVPB SCH (05:41)
[2019-04-12] MEDS: LANSOPRAZOLE 30 MG CAP GTB SCH (05:41)
[2019-04-12] MEDS: INSULIN ASPART [NOVOLOG] 3 ML PEN SC SCH ×4 (05:47→17:53)
[2019-04-12] MEDS: IPRATROPIUM (HFA) 12.9 GM INHALER INH SCH ×2 (07:52→15:51)
[2019-04-12] MEDS: LEVALBUTEROL (HFA) 15 GM INHALER INH SCH ×2 (07:52→15:52)
[2019-04-12] MEDS: ASPIRIN 81 MG TAB GTB SCH (08:33)
[2019-04-12] MEDS: DESMOPRESSIN 0.1 MG TAB GTB SCH ×2 (08:33→21:16)
[2019-04-12] MEDS: ASCORBIC ACID 500 MG TAB GTB SCH (08:33)
[2019-04-12] MEDS: GABAPENTIN 300 MG CAP GTB SCH ×2 (08:33→21:16)
[2019-04-12] MEDS: ZINC SULFATE 220 MG CAP GTB SCH (08:33)
[2019-04-12] MEDS: MULTIVITAMINS 30 ML CUP GTB SCH (08:33)
[2019-04-12] MEDS: DOXYCYCLINE 100 MG TAB PO SCH (08:33)
[2019-04-12] MEDS: DAKINS 0.0125%(1/40) 473 ML SOLUTION TP SCH ×2 (08:34→21:16)
[2019-04-12] MEDS: FUROSEMIDE 20 MG INJ IV SCH ×2 (08:34→21:16)
[2019-04-12] MEDS: ENOXAPARIN 30 MG/0.3 ML SYG SC SCH (08:44)
[2019-04-12] MEDS ORDERED: VANCOMYCIN IV PER PHARMACY XX SCH (11:00)
[2019-04-12] MEDS: VANCOMYCIN 1 GM 250 ML IVPB SCH (12:20)
[2019-04-12] MEDS: ACETAMINOPHEN 650MG/20.3ML CUP GTB PRN (16:34)
[2019-04-13] VITALS (21 sets, daily range): BP systolic 95–122; BP diastolic 50–63; PULSE 82–102; RESP 18–20
[2019-04-13] MEDS: IPRATROPIUM (HFA) 12.9 GM INHALER INH SCH ×4 (00:20→23:10)
[2019-04-13] MEDS: LEVALBUTEROL (HFA) 15 GM INHALER INH SCH ×4 (00:20→23:10)
[2019-04-13] MEDS: INSULIN ASPART [NOVOLOG] 3 ML PEN SC SCH ×4 (06:00→18:00)
[2019-04-13] MEDS: MULTIVITAMINS 30 ML CUP GTB SCH (09:19)
[2019-04-13] MEDS: FUROSEMIDE 20 MG INJ IV SCH ×2 (09:19→22:19)
[2019-04-13] MEDS: LANSOPRAZOLE 30 MG CAP GTB SCH (09:19)
[2019-04-13] MEDS: GABAPENTIN 300 MG CAP GTB SCH ×2 (09:19→22:18)
[2019-04-13] MEDS: ZINC SULFATE 220 MG CAP GTB SCH (09:20)
[2019-04-13] MEDS: ASCORBIC ACID 500 MG TAB GTB SCH (09:20)
[2019-04-13] MEDS: ASPIRIN 81 MG TAB GTB SCH (09:20)
[2019-04-13] MEDS: DESMOPRESSIN 0.1 MG TAB GTB SCH ×2 (09:20→22:18)
[2019-04-13] MEDS: DAKINS 0.0125%(1/40) 473 ML SOLUTION TP SCH ×2 (09:20→21:00)
[2019-04-13] MEDS: ENOXAPARIN 30 MG/0.3 ML SYG SC SCH (10:00)
[2019-04-13] MEDS: VANCOMYCIN 1 GM 250 ML IVPB SCH (13:40)
[2019-04-14] VITALS (24 sets, daily range): BP systolic 83–116; BP diastolic 38–58; PULSE 75–98; RESP 18
[2019-04-14] MEDS: LANSOPRAZOLE 30 MG CAP GTB SCH ×2 (06:00→09:58)
[2019-04-14] MEDS: INSULIN ASPART [NOVOLOG] 3 ML PEN SC SCH ×4 (06:00→18:00)
[2019-04-14] MEDS: LEVALBUTEROL (HFA) 15 GM INHALER INH SCH ×3 (08:48→23:35)
[2019-04-14] MEDS: IPRATROPIUM (HFA) 12.9 GM INHALER INH SCH ×3 (08:49→23:35)
[2019-04-14] MEDS: FUROSEMIDE 20 MG INJ IV SCH ×2 (09:00→21:32)
[2019-04-14] MEDS: GABAPENTIN 300 MG CAP GTB SCH ×2 (09:58→21:31)
[2019-04-14] MEDS: DESMOPRESSIN 0.1 MG TAB GTB SCH ×2 (09:58→21:31)
[2019-04-14] MEDS: ASPIRIN 81 MG TAB GTB SCH (09:58)
[2019-04-14] MEDS: ZINC SULFATE 220 MG CAP GTB SCH (09:58)
[2019-04-14] MEDS: ASCORBIC ACID 500 MG TAB GTB SCH (09:58)
[2019-04-14] MEDS: MULTIVITAMINS 30 ML CUP GTB SCH (09:59)
[2019-04-14] MEDS: ENOXAPARIN 30 MG/0.3 ML SYG SC SCH (10:34)
[2019-04-14] MEDS: VANCOMYCIN 1 GM 250 ML IVPB SCH (12:41)
[2019-04-14] MEDS: TOBRAMYCIN/0.25NS 300 MG/5 ML INHAL NEB SCH ×2 (12:59→19:18)
[2019-04-14] MEDS: metroNIDAZOLE 500 MG TAB PO SCH ×2 (16:18→21:33)
[2019-04-14] MEDS: ACETAMINOPHEN 650MG/20.3ML CUP GTB PRN (16:18)
[2019-04-14] MEDS: FLUCONAZOLE 100 MG TAB PO SCH (16:21)
[2019-04-14] MEDS: MEROPENEM 1 GM/50ML(PMX) 50 ML IVPB SCH ×2 (18:23→21:32)
[2019-04-14] MEDS: SILVER SULFADIAZINE 1% 400 GM CR TOP SCH (21:33)
[2019-04-15] VITALS (21 sets, daily range): BP systolic 92–114; BP diastolic 51–65; PULSE 81–109; RESP 18–19
[2019-04-15] MEDS: INSULIN ASPART [NOVOLOG] 3 ML PEN SC SCH ×4 (06:00→17:53)
[2019-04-15] MEDS: metroNIDAZOLE 500 MG TAB PO SCH ×3 (06:22→21:49)
[2019-04-15] MEDS: LEVALBUTEROL (HFA) 15 GM INHALER INH SCH ×3 (07:46→23:38)
[2019-04-15] MEDS: IPRATROPIUM (HFA) 12.9 GM INHALER INH SCH ×3 (07:46→23:38)
[2019-04-15] MEDS: TOBRAMYCIN/0.25NS 300 MG/5 ML INHAL NEB SCH (09:10)
[2019-04-15] MEDS: FLUCONAZOLE 100 MG TAB PO SCH (09:26)
[2019-04-15] MEDS: DESMOPRESSIN 0.1 MG TAB GTB SCH ×2 (09:26→21:48)
[2019-04-15] MEDS: ASCORBIC ACID 500 MG TAB GTB SCH (09:26)
[2019-04-15] MEDS: ASPIRIN 81 MG TAB GTB SCH (09:27)
[2019-04-15] MEDS: FUROSEMIDE 20 MG INJ IV SCH ×2 (09:27→23:55)
[2019-04-15] MEDS: ZINC SULFATE 220 MG CAP GTB SCH (09:32)
[2019-04-15] MEDS: GABAPENTIN 300 MG CAP GTB SCH ×2 (09:32→21:48)
[2019-04-15] MEDS: MULTIVITAMINS 30 ML CUP GTB SCH (09:32)
[2019-04-15] MEDS: SILVER SULFADIAZINE 1% 400 GM CR TOP SCH ×2 (09:33→21:49)
[2019-04-15] MEDS: MEROPENEM 1 GM/50ML(PMX) 50 ML IVPB SCH (09:35)
[2019-04-15] MEDS: ENOXAPARIN 30 MG/0.3 ML SYG SC SCH (09:48)
[2019-04-15] MEDS ORDERED: TOBRAMYCIN IV PER PHARMACY XX SCH (10:30)
[2019-04-15] MEDS ORDERED: TOBRAMYCIN IVPB SCH (13:00)
[2019-04-15] MEDS ORDERED: SOD CHLORIDE 0.9% IVPB SCH (13:00)
[2019-04-15] MEDS: LEVOFLOXACIN 500MG/D5W (PMX) 100 ML IVPB SCH (13:18)
[2019-04-15] MEDS: DOXYCYCLINE 100 MG in SOD CHLORIDE 0.9% 250 ML IVPB SCH (21:48)
[2019-04-16] VITALS (23 sets, daily range): BP systolic 80–120; BP diastolic 44–76; PULSE 17–112; RESP 16–18
[2019-04-16] MEDS: ACETAMINOPHEN 650MG/20.3ML CUP GTB PRN (00:22)
[2019-04-16] MEDS: INSULIN ASPART [NOVOLOG] 3 ML PEN SC SCH ×4 (05:58→17:13)
[2019-04-16] MEDS: LANSOPRAZOLE 30 MG CAP GTB SCH (05:58)
[2019-04-16] MEDS: metroNIDAZOLE 500 MG TAB PO SCH ×3 (05:59→22:11)
[2019-04-16] MEDS: LEVALBUTEROL (HFA) 15 GM INHALER INH SCH ×3 (07:45→22:59)
[2019-04-16] MEDS: IPRATROPIUM (HFA) 12.9 GM INHALER INH SCH ×3 (07:45→22:58)
[2019-04-16] MEDS: MULTIVITAMINS 30 ML CUP GTB SCH (08:36)
[2019-04-16] MEDS: DESMOPRESSIN 0.1 MG TAB GTB SCH ×2 (08:36→20:35)
[2019-04-16] MEDS: GABAPENTIN 300 MG CAP GTB SCH ×2 (08:36→20:36)
[2019-04-16] MEDS: FLUCONAZOLE 100 MG TAB PO SCH (08:36)
[2019-04-16] MEDS: ZINC SULFATE 220 MG CAP GTB SCH (08:36)
[2019-04-16] MEDS: ASCORBIC ACID 500 MG TAB GTB SCH (08:36)
[2019-04-16] MEDS: ASPIRIN 81 MG TAB GTB SCH (08:36)
[2019-04-16] MEDS: SILVER SULFADIAZINE 1% 400 GM CR TOP SCH ×2 (08:37→20:56)
[2019-04-16] MEDS: DOXYCYCLINE 100 MG in SOD CHLORIDE 0.9% 250 ML IVPB SCH ×2 (08:40→20:54)
[2019-04-16] MEDS: ENOXAPARIN 30 MG/0.3 ML SYG SC SCH (08:51)
[2019-04-16] MEDS: FUROSEMIDE 20 MG INJ IV SCH ×2 (08:52→20:36)
[2019-04-16] MEDS: LEVOFLOXACIN 500MG/D5W (PMX) 100 ML IVPB SCH (10:13)
[2019-04-17] VITALS (25 sets, daily range): BP systolic 103–133; BP diastolic 47–58; PULSE 94–119; RESP 16–25
[2019-04-17] MEDS ORDERED: SOD CHLORIDE 0.45% 1,000 ML IV SCH (02:00)
[2019-04-17] MEDS: SOD CHLORIDE 0.9% IVPB SCH (03:09)
[2019-04-17] MEDS: TOBRAMYCIN IVPB SCH (03:09)
[2019-04-17] MEDS: metroNIDAZOLE 500 MG TAB PO SCH ×3 (05:47→21:11)
[2019-04-17] MEDS: LANSOPRAZOLE 30 MG CAP GTB SCH (05:47)
[2019-04-17] MEDS: INSULIN ASPART [NOVOLOG] 3 ML PEN SC SCH ×4 (05:50→17:28)
[2019-04-17] MEDS: LEVALBUTEROL (HFA) 15 GM INHALER INH SCH ×4 (07:53→23:10)
[2019-04-17] MEDS: IPRATROPIUM (HFA) 12.9 GM INHALER INH SCH ×4 (07:53→23:10)
[2019-04-17] MEDS: POTASSIUM CHLORIDE 100 ML IVPB SCH ×4 (08:30→19:27)
[2019-04-17] MEDS: ZINC SULFATE 220 MG CAP GTB SCH (08:54)
[2019-04-17] MEDS: ASPIRIN 81 MG TAB GTB SCH (08:54)
[2019-04-17] MEDS: DESMOPRESSIN 0.1 MG TAB GTB SCH ×2 (08:54→21:11)
[2019-04-17] MEDS: ASCORBIC ACID 500 MG TAB GTB SCH (08:54)
[2019-04-17] MEDS: GABAPENTIN 300 MG CAP GTB SCH ×2 (08:54→21:11)
[2019-04-17] MEDS: MULTIVITAMINS 30 ML CUP GTB SCH (08:55)
[2019-04-17] MEDS: FUROSEMIDE 20 MG INJ IV SCH ×2 (08:55→21:12)
[2019-04-17] MEDS: FLUCONAZOLE 100 MG TAB PO SCH (08:55)
[2019-04-17] MEDS: SILVER SULFADIAZINE 1% 400 GM CR TOP SCH ×2 (08:56→21:12)
[2019-04-17] MEDS: DOXYCYCLINE 100 MG in SOD CHLORIDE 0.9% 250 ML IVPB SCH ×2 (09:00→21:28)
[2019-04-17] MEDS: ENOXAPARIN 30 MG/0.3 ML SYG SC SCH (09:09)
[2019-04-18] VITALS (23 sets, daily range): BP systolic 92–109; BP diastolic 43–55; PULSE 89–124; RESP 17–24
[2019-04-18] MEDS: INSULIN ASPART [NOVOLOG] 3 ML PEN SC SCH ×4 (05:51→17:40)
[2019-04-18] MEDS: LANSOPRAZOLE 30 MG CAP GTB SCH (05:51)
[2019-04-18] MEDS: metroNIDAZOLE 500 MG TAB PO SCH ×3 (05:51→21:51)
[2019-04-18] MEDS: IPRATROPIUM (HFA) 12.9 GM INHALER INH SCH ×3 (08:10→23:28)
[2019-04-18] MEDS: LEVALBUTEROL (HFA) 15 GM INHALER INH SCH ×3 (08:10→23:28)
[2019-04-18] MEDS: LEVOFLOXACIN 250MG/D5W (PMX) 50 ML IVPB SCH (09:06)
[2019-04-18] MEDS: ZINC SULFATE 220 MG CAP GTB SCH (09:11)
[2019-04-18] MEDS: ASCORBIC ACID 500 MG TAB GTB SCH (09:11)
[2019-04-18] MEDS: DESMOPRESSIN 0.1 MG TAB GTB SCH ×2 (09:11→21:51)
[2019-04-18] MEDS: MULTIVITAMINS 30 ML CUP GTB SCH (09:12)
[2019-04-18] MEDS: ASPIRIN 81 MG TAB GTB SCH (09:12)
[2019-04-18] MEDS: FLUCONAZOLE 100 MG TAB PO SCH (09:12)
[2019-04-18] MEDS: GABAPENTIN 300 MG CAP GTB SCH ×2 (09:12→21:51)
[2019-04-18] MEDS: FUROSEMIDE 20 MG INJ IV SCH ×2 (09:13→21:00)
[2019-04-18] MEDS: ENOXAPARIN 30 MG/0.3 ML SYG SC SCH (09:20)
[2019-04-18] MEDS: SILVER SULFADIAZINE 1% 400 GM CR TOP SCH ×2 (09:25→21:00)
[2019-04-18] MEDS: DOXYCYCLINE 100 MG in SOD CHLORIDE 0.9% 250 ML IVPB SCH ×2 (10:35→21:54)
[2019-04-18] MEDS: LORAZEPAM 2 MG INJ IV PRN (11:09)
[2019-04-18] MEDS: TOBRAMYCIN IVPB SCH (16:20)
[2019-04-18] MEDS: SOD CHLORIDE 0.9% IVPB SCH (16:20)
[2019-04-19] VITALS (25 sets, daily range): BP systolic 92–121; BP diastolic 41–57; PULSE 86–111; RESP 17–24
[2019-04-19] MEDS: SOD CHLORIDE 0.9% IVPB SCH (05:02)
[2019-04-19] MEDS: TOBRAMYCIN IVPB SCH (05:02)
[2019-04-19] MEDS: LANSOPRAZOLE 30 MG CAP GTB SCH (05:22)
[2019-04-19] MEDS: metroNIDAZOLE 500 MG TAB PO SCH ×3 (05:22→21:43)
[2019-04-19] MEDS: INSULIN ASPART [NOVOLOG] 3 ML PEN SC SCH ×4 (05:23→17:07)
[2019-04-19] MEDS: IPRATROPIUM (HFA) 12.9 GM INHALER INH SCH ×3 (08:50→23:24)
[2019-04-19] MEDS: LEVALBUTEROL (HFA) 15 GM INHALER INH SCH ×3 (08:51→23:24)
[2019-04-19] MEDS: DOXYCYCLINE 100 MG in SOD CHLORIDE 0.9% 250 ML IVPB SCH ×2 (09:26→21:48)
[2019-04-19] MEDS: ASCORBIC ACID 500 MG TAB GTB SCH (09:28)
[2019-04-19] MEDS: FLUCONAZOLE 100 MG TAB PO SCH (09:28)
[2019-04-19] MEDS: DESMOPRESSIN 0.1 MG TAB GTB SCH ×2 (09:28→21:42)
[2019-04-19] MEDS: GABAPENTIN 300 MG CAP GTB SCH ×2 (09:28→21:43)
[2019-04-19] MEDS: ASPIRIN 81 MG TAB GTB SCH (09:28)
[2019-04-19] MEDS: FUROSEMIDE 20 MG INJ IV SCH ×2 (09:29→21:51)
[2019-04-19] MEDS: SILVER SULFADIAZINE 1% 400 GM CR TOP SCH ×2 (09:30→21:51)
[2019-04-19] MEDS: MULTIVITAMIN DAILY XX SCH ×2 (09:30→17:05)
[2019-04-19] MEDS: GABAPENTIN XX SCH ×2 (09:30→17:05)
[2019-04-19] MEDS: VITAMIN C XX SCH ×2 (09:30→17:05)
[2019-04-19] MEDS: [UNRECOGNIZED DRUG - OTHER] XX SCH ×2 (09:30→17:05)
[2019-04-19] MEDS: ENOXAPARIN 30 MG/0.3 ML SYG SC SCH (09:33)
[2019-04-19] MEDS: LEVOFLOXACIN 250MG/D5W (PMX) 50 ML IVPB SCH (09:35)
[2019-04-19] MEDS: ZINC SULFATE 220 MG CAP GTB SCH (09:48)
[2019-04-19] MEDS: MULTIVITAMINS 30 ML CUP GTB SCH (09:48)
[2019-04-20] VITALS (22 sets, daily range): BP systolic 98–109; BP diastolic 44–58; PULSE 69–113; RESP 17–20
[2019-04-20] MEDS: [UNRECOGNIZED DRUG - OTHER] XX SCH ×3 (01:30→16:34)
[2019-04-20] MEDS: VITAMIN C XX SCH ×3 (01:30→16:34)
[2019-04-20] MEDS: GABAPENTIN XX SCH ×3 (01:30→16:34)
[2019-04-20] MEDS: MULTIVITAMIN DAILY XX SCH ×3 (01:30→16:34)
[2019-04-20] MEDS: metroNIDAZOLE 500 MG TAB PO SCH ×3 (05:42→21:06)
[2019-04-20] MEDS: LANSOPRAZOLE 30 MG CAP GTB SCH (05:42)
[2019-04-20] MEDS: INSULIN ASPART [NOVOLOG] 3 ML PEN SC SCH ×5 (05:45→23:24)
[2019-04-20] MEDS: LEVALBUTEROL (HFA) 15 GM INHALER INH SCH ×3 (07:37→23:34)
[2019-04-20] MEDS: IPRATROPIUM (HFA) 12.9 GM INHALER INH SCH ×3 (07:37→23:34)
[2019-04-20] MEDS: ASPIRIN 81 MG TAB GTB SCH (09:18)
[2019-04-20] MEDS: FUROSEMIDE 20 MG INJ IV SCH ×2 (09:18→21:07)
[2019-04-20] MEDS: ASCORBIC ACID 500 MG TAB GTB SCH (09:18)
[2019-04-20] MEDS: DESMOPRESSIN 0.1 MG TAB GTB SCH ×2 (09:19→20:32)
[2019-04-20] MEDS: MULTIVITAMINS 30 ML CUP GTB SCH (09:19)
[2019-04-20] MEDS: SILVER SULFADIAZINE 1% 400 GM CR TOP SCH ×2 (09:19→20:34)
[2019-04-20] MEDS: FLUCONAZOLE 100 MG TAB PO SCH (09:19)
[2019-04-20] MEDS: GABAPENTIN 300 MG CAP GTB SCH ×2 (09:19→20:32)
[2019-04-20] MEDS: ZINC SULFATE 220 MG CAP GTB SCH (09:19)
[2019-04-20] MEDS: LEVOFLOXACIN 250MG/D5W (PMX) 50 ML IVPB SCH (09:23)
[2019-04-20] MEDS: ENOXAPARIN 30 MG/0.3 ML SYG SC SCH (09:50)
[2019-04-20] MEDS: DOXYCYCLINE 100 MG in SOD CHLORIDE 0.9% 250 ML IVPB SCH ×2 (10:46→20:33)
[2019-04-20] MEDS: HYDROCORTISONE 1% 28.35 GM OINT TOP SCH ×2 (13:00→20:32)
[2019-04-21] VITALS (22 sets, daily range): BP systolic 92–130; BP diastolic 40–60; PULSE 93–111; RESP 18–26
[2019-04-21] MEDS: GABAPENTIN XX SCH ×3 (01:09→17:22)
[2019-04-21] MEDS: MULTIVITAMIN DAILY XX SCH ×3 (01:09→17:22)
[2019-04-21] MEDS: [UNRECOGNIZED DRUG - OTHER] XX SCH ×3 (01:09→17:22)
[2019-04-21] MEDS: VITAMIN C XX SCH ×3 (01:09→17:22)
[2019-04-21] MEDS: metroNIDAZOLE 500 MG TAB PO SCH ×3 (05:03→22:16)
[2019-04-21] MEDS: TOBRAMYCIN IVPB SCH (05:03)
[2019-04-21] MEDS: SOD CHLORIDE 0.9% IVPB SCH (05:03)
[2019-04-21] MEDS: LANSOPRAZOLE 30 MG CAP GTB SCH (05:03)
[2019-04-21] MEDS: INSULIN ASPART [NOVOLOG] 3 ML PEN SC SCH ×3 (05:15→17:39)
[2019-04-21] MEDS: LEVALBUTEROL (HFA) 15 GM INHALER INH SCH ×2 (08:40→15:46)
[2019-04-21] MEDS: IPRATROPIUM (HFA) 12.9 GM INHALER INH SCH ×2 (08:40→15:46)
[2019-04-21] MEDS: FLUCONAZOLE 100 MG TAB PO SCH (08:47)
[2019-04-21] MEDS: ZINC SULFATE 220 MG CAP GTB SCH (08:47)
[2019-04-21] MEDS: DESMOPRESSIN 0.1 MG TAB GTB SCH ×2 (08:47→22:16)
[2019-04-21] MEDS: ASPIRIN 81 MG TAB GTB SCH (08:47)
[2019-04-21] MEDS: ASCORBIC ACID 500 MG TAB GTB SCH (08:47)
[2019-04-21] MEDS: MULTIVITAMINS 30 ML CUP GTB SCH (08:47)
[2019-04-21] MEDS: DOXYCYCLINE 100 MG in SOD CHLORIDE 0.9% 250 ML IVPB SCH ×2 (08:49→22:26)
[2019-04-21] MEDS: SILVER SULFADIAZINE 1% 400 GM CR TOP SCH ×2 (08:51→22:19)
[2019-04-21] MEDS: HYDROCORTISONE 1% 28.35 GM OINT TOP SCH ×3 (08:51→22:16)
[2019-04-21] MEDS: GABAPENTIN 300 MG CAP GTB SCH ×2 (08:56→22:16)
[2019-04-21] MEDS: FUROSEMIDE 20 MG INJ IV SCH ×2 (08:56→22:17)
[2019-04-21] MEDS ORDERED: POTASSIUM CHLORIDE 20 MEQ POWDER FOR ORAL SOLN GTB ONE (09:30)
[2019-04-21] MEDS: LEVOFLOXACIN 250MG/D5W (PMX) 50 ML IVPB SCH (10:27)
[2019-04-22] VITALS (25 sets, daily range): BP systolic 37–150; BP diastolic 22–64; PULSE 93–112; RESP 18–32
[2019-04-22] MEDS: IPRATROPIUM (HFA) 12.9 GM INHALER INH SCH ×3 (00:11→17:09)
[2019-04-22] MEDS: LEVALBUTEROL (HFA) 15 GM INHALER INH SCH ×3 (00:11→17:09)
[2019-04-22] MEDS: INSULIN ASPART [NOVOLOG] 3 ML PEN SC SCH ×4 (01:09→17:25)
[2019-04-22] MEDS: MULTIVITAMIN DAILY XX SCH ×3 (01:30→16:59)
[2019-04-22] MEDS: [UNRECOGNIZED DRUG - OTHER] XX SCH ×3 (01:30→16:59)
[2019-04-22] MEDS: GABAPENTIN XX SCH ×3 (01:30→16:59)
[2019-04-22] MEDS: VITAMIN C XX SCH ×3 (01:30→16:59)
[2019-04-22] MEDS: metroNIDAZOLE 500 MG TAB PO SCH ×2 (05:21→13:27)
[2019-04-22] MEDS: LANSOPRAZOLE 30 MG CAP GTB SCH (05:21)
[2019-04-22] MEDS: FLUCONAZOLE 100 MG TAB PO SCH (08:37)
[2019-04-22] MEDS: ASPIRIN 81 MG TAB GTB SCH (08:37)
[2019-04-22] MEDS: MULTIVITAMINS 30 ML CUP GTB SCH (08:37)
[2019-04-22] MEDS: DESMOPRESSIN 0.1 MG TAB GTB SCH ×2 (08:37→21:07)
[2019-04-22] MEDS: FUROSEMIDE 20 MG INJ IV SCH ×2 (08:37→21:00)
[2019-04-22] MEDS: HYDROCORTISONE 1% 28.35 GM OINT TOP SCH ×2 (08:38→13:27)
[2019-04-22] MEDS: ZINC SULFATE 220 MG CAP GTB SCH (08:38)
[2019-04-22] MEDS: ASCORBIC ACID 500 MG TAB GTB SCH (08:38)
[2019-04-22] MEDS: GABAPENTIN 300 MG CAP GTB SCH ×2 (08:38→21:07)
[2019-04-22] MEDS: SILVER SULFADIAZINE 1% 400 GM CR TOP SCH (08:43)
[2019-04-22] MEDS: DOXYCYCLINE 100 MG in SOD CHLORIDE 0.9% 250 ML IVPB SCH ×2 (08:53→20:42)
[2019-04-22] MEDS: LEVOFLOXACIN 250MG/D5W (PMX) 50 ML IVPB SCH (10:43)
[2019-04-22] MEDS ORDERED: SOD CHLORIDE 0.9% 1,000 ML IV ONE (21:00)
[2019-04-22] MEDS ORDERED: NORepinephrine 8MG/250 ML (PMX 250 ML ONE (22:09)
[2019-04-23] VITALS (96 sets, daily range): BP systolic 70–165; BP diastolic 25–126; PULSE 80–106; RESP 14–36
[2019-04-23] MEDS: LEVALBUTEROL (HFA) 15 GM INHALER INH SCH ×4 (00:36→23:37)
[2019-04-23] MEDS: metroNIDAZOLE 500 MG TAB PO SCH ×4 (02:13→14:02)
[2019-04-23] MEDS: SILVER SULFADIAZINE 1% 25 GM CR TOP SCH ×3 (02:14→20:25)
[2019-04-23] MEDS: HYDROCORTISONE 1% 28.35 GM OINT TOP SCH ×4 (02:14→20:25)
[2019-04-23] MEDS: NORepinephrine 8MG/250 ML (PMX 250 ML IV SCH ×2 (02:29→21:23)
[2019-04-23] MEDS: INSULIN ASPART [NOVOLOG] 3 ML PEN SC SCH ×4 (05:19→18:00)
[2019-04-23] MEDS: LANSOPRAZOLE 30 MG CAP GTB SCH (05:20)
[2019-04-23] MEDS: IPRATROPIUM (HFA) 12.9 GM INHALER INH SCH ×4 (08:00→23:37)
[2019-04-23] MEDS: MULTIVITAMINS 30 ML CUP GTB SCH (08:39)
[2019-04-23] MEDS: GABAPENTIN 300 MG CAP GTB SCH ×2 (08:40→20:23)
[2019-04-23] MEDS: ASCORBIC ACID 500 MG TAB GTB SCH (08:40)
[2019-04-23] MEDS: ZINC SULFATE 220 MG CAP GTB SCH (08:40)
[2019-04-23] MEDS: DESMOPRESSIN 0.1 MG TAB GTB SCH ×2 (08:40→20:23)
[2019-04-23] MEDS: FUROSEMIDE 20 MG INJ IV SCH ×2 (08:40→20:24)
[2019-04-23] MEDS: ASPIRIN 81 MG TAB GTB SCH (08:40)
[2019-04-23] MEDS: DOXYCYCLINE 100 MG in SOD CHLORIDE 0.9% 250 ML IVPB SCH ×2 (08:43→20:23)
[2019-04-23] MEDS: FLUCONAZOLE 100 MG TAB PO SCH (09:00)
[2019-04-23] MEDS: VITAMIN C XX SCH (09:30)
[2019-04-23] MEDS: GABAPENTIN XX SCH (09:30)
[2019-04-23] MEDS: [UNRECOGNIZED DRUG - OTHER] XX SCH (09:30)
[2019-04-23] MEDS: MULTIVITAMIN DAILY XX SCH (09:30)
[2019-04-23] MEDS: LEVOFLOXACIN 250MG/D5W (PMX) 50 ML IVPB SCH (11:56)
[2019-04-23] MEDS: ACETAMINOPHEN 650MG/20.3ML CUP GTB PRN (14:22)
[2019-04-24] VITALS (103 sets, daily range): BP systolic 42–155; BP diastolic 21–107; PULSE 87–122; RESP 18–36
[2019-04-24] MEDS: LANSOPRAZOLE 30 MG CAP GTB SCH (05:21)
[2019-04-24] MEDS: TOBRAMYCIN IVPB SCH (05:21)
[2019-04-24] MEDS: metroNIDAZOLE 500 MG TAB PO SCH ×3 (05:21→22:14)
[2019-04-24] MEDS: SOD CHLORIDE 0.9% IVPB SCH (05:21)
[2019-04-24] MEDS: INSULIN ASPART [NOVOLOG] 3 ML PEN SC SCH ×4 (05:28→16:43)
[2019-04-24] MEDS: IPRATROPIUM (HFA) 12.9 GM INHALER INH SCH ×3 (08:41→23:17)
[2019-04-24] MEDS: LEVALBUTEROL (HFA) 15 GM INHALER INH SCH ×3 (08:41→23:17)
[2019-04-24] MEDS: DESMOPRESSIN 0.1 MG TAB GTB SCH ×2 (09:30→20:57)
[2019-04-24] MEDS: MULTIVITAMINS 30 ML CUP GTB SCH (09:30)
[2019-04-24] MEDS: ASCORBIC ACID 500 MG TAB GTB SCH (09:31)
[2019-04-24] MEDS: ASPIRIN 81 MG TAB GTB SCH (09:31)
[2019-04-24] MEDS: ZINC SULFATE 220 MG CAP GTB SCH (09:31)
[2019-04-24] MEDS: DOXYCYCLINE 100 MG in SOD CHLORIDE 0.9% 250 ML IVPB SCH ×2 (09:31→21:13)
[2019-04-24] MEDS: GABAPENTIN 300 MG CAP GTB SCH ×2 (09:31→20:56)
[2019-04-24] MEDS: FLUCONAZOLE 100 MG TAB PO SCH (09:31)
[2019-04-24] MEDS: SILVER SULFADIAZINE 1% 25 GM CR TOP SCH ×2 (09:32→21:05)
[2019-04-24] MEDS: HYDROCORTISONE 1% 28.35 GM OINT TOP SCH ×3 (09:32→21:05)
[2019-04-24] MEDS: FUROSEMIDE 20 MG INJ IV SCH ×2 (09:33→20:57)
[2019-04-24] MEDS: LEVOFLOXACIN 250MG/D5W (PMX) 50 ML IVPB SCH (11:41)
[2019-04-24] MEDS ORDERED: LIDOCAINE 1% (MPF) 5 ML VIAL SC ONE (12:30)
[2019-04-24] MEDS: POTASSIUM CHLORIDE 100 ML IVPB SCH ×4 (14:02→22:16)
[2019-04-24] MEDS: NORepinephrine 8MG/250 ML (PMX 250 ML IV SCH (16:44)
[2019-04-24] MEDS: ACETAMINOPHEN 650MG/20.3ML CUP GTB PRN (21:30)
[2019-04-24] MEDS ORDERED: NORepinephrine 8MG/250 ML (PMX 250 ML IV SCH (22:30)
[2019-04-25] VITALS (77 sets, daily range): BP systolic 48–161; BP diastolic 37–118; PULSE 97–139; RESP 16–44
[2019-04-25] MEDS: INSULIN ASPART [NOVOLOG] 3 ML PEN SC SCH ×4 (00:26→18:00)
[2019-04-25] MEDS: metroNIDAZOLE 500 MG TAB PO SCH ×3 (05:33→21:50)
[2019-04-25] MEDS: LANSOPRAZOLE 30 MG CAP GTB SCH (05:33)
[2019-04-25] MEDS: IPRATROPIUM (HFA) 12.9 GM INHALER INH SCH ×3 (07:42→23:18)
[2019-04-25] MEDS: LEVALBUTEROL (HFA) 15 GM INHALER INH SCH ×3 (07:42→23:18)
[2019-04-25] MEDS: ASPIRIN 81 MG TAB GTB SCH (08:59)
[2019-04-25] MEDS: ASCORBIC ACID 500 MG TAB GTB SCH (08:59)
[2019-04-25] MEDS: GABAPENTIN 300 MG CAP GTB SCH ×2 (08:59→20:33)
[2019-04-25] MEDS: DOXYCYCLINE 100 MG in SOD CHLORIDE 0.9% 250 ML IVPB SCH ×2 (08:59→20:34)
[2019-04-25] MEDS: DESMOPRESSIN 0.1 MG TAB GTB SCH ×2 (08:59→20:34)
[2019-04-25] MEDS: ZINC SULFATE 220 MG CAP GTB SCH (08:59)
[2019-04-25] MEDS: MULTIVITAMINS 30 ML CUP GTB SCH (09:00)
[2019-04-25] MEDS: FUROSEMIDE 20 MG INJ IV SCH ×2 (09:00→20:33)
[2019-04-25] MEDS: FLUCONAZOLE 100 MG TAB PO SCH (09:00)
[2019-04-25] MEDS: SILVER SULFADIAZINE 1% 25 GM CR TOP SCH ×2 (09:01→20:35)
[2019-04-25] MEDS: HYDROCORTISONE 1% 28.35 GM OINT TOP SCH ×3 (09:01→20:34)
[2019-04-25] MEDS: LEVOFLOXACIN 250MG/D5W (PMX) 50 ML IVPB SCH (10:59)
[2019-04-25] MEDS ORDERED: COLLAGENASE 5 GM (UD JAR) TOP ONE (12:15)
[2019-04-25] MEDS ORDERED: MAGNESIUM SULFATE 2 GM/50 ML 50 ML IVPB ONE (12:30)
[2019-04-26] VITALS (83 sets, daily range): BP systolic 66–141; BP diastolic 39–106; PULSE 80–121; RESP 15–31
[2019-04-26] MEDS: ACETAMINOPHEN 650MG/20.3ML CUP GTB PRN ×2 (00:41→20:37)
[2019-04-26] MEDS: LANSOPRAZOLE 30 MG CAP GTB SCH (05:21)
[2019-04-26] MEDS: metroNIDAZOLE 500 MG TAB PO SCH ×3 (05:21→23:12)
[2019-04-26] MEDS: INSULIN ASPART [NOVOLOG] 3 ML PEN SC SCH ×4 (05:42→17:25)
[2019-04-26] MEDS: LEVALBUTEROL (HFA) 15 GM INHALER INH SCH ×2 (08:10→16:00)
[2019-04-26] MEDS: IPRATROPIUM (HFA) 12.9 GM INHALER INH SCH ×2 (08:10→16:00)
[2019-04-26] MEDS: ZINC SULFATE 220 MG CAP GTB SCH (09:07)
[2019-04-26] MEDS: ASPIRIN 81 MG TAB GTB SCH (09:07)
[2019-04-26] MEDS: FLUCONAZOLE 100 MG TAB PO SCH (09:07)
[2019-04-26] MEDS: FUROSEMIDE 20 MG INJ IV SCH (09:07)
[2019-04-26] MEDS: DESMOPRESSIN 0.1 MG TAB GTB SCH ×2 (09:07→20:36)
[2019-04-26] MEDS: MULTIVITAMINS 30 ML CUP GTB SCH (09:07)
[2019-04-26] MEDS: GABAPENTIN 300 MG CAP GTB SCH ×2 (09:07→20:36)
[2019-04-26] MEDS: DOXYCYCLINE 100 MG in SOD CHLORIDE 0.9% 250 ML IVPB SCH ×2 (09:11→21:00)
[2019-04-26] MEDS: HYDROCORTISONE 1% 28.35 GM OINT TOP SCH ×3 (09:11→20:36)
[2019-04-26] MEDS: SILVER SULFADIAZINE 1% 25 GM CR TOP SCH ×2 (09:11→20:37)
[2019-04-26] MEDS: ASCORBIC ACID 500 MG TAB GTB SCH (09:15)
[2019-04-26] MEDS: LEVOFLOXACIN 250MG/D5W (PMX) 50 ML IVPB SCH (10:30)
[2019-04-26] MEDS: HYDROCORTISONE 100 MG INJ IV SCH ×3 (10:30→23:12)
[2019-04-27] VITALS (41 sets, daily range): BP systolic 76–127; BP diastolic 51–110; PULSE 93–117; RESP 13–29
[2019-04-27] MEDS: IPRATROPIUM (HFA) 12.9 GM INHALER INH SCH ×4 (01:23→23:05)
[2019-04-27] MEDS: LEVALBUTEROL (HFA) 15 GM INHALER INH SCH ×4 (01:23→23:05)
[2019-04-27] MEDS: INSULIN ASPART [NOVOLOG] 3 ML PEN SC SCH ×4 (01:56→17:59)
[2019-04-27] MEDS: ACETAMINOPHEN 650MG/20.3ML CUP GTB PRN ×2 (04:15→08:29)
[2019-04-27] MEDS: TOBRAMYCIN IVPB SCH (05:00)
[2019-04-27] MEDS: SOD CHLORIDE 0.9% IVPB SCH (05:00)
[2019-04-27] MEDS: metroNIDAZOLE 500 MG TAB PO SCH ×2 (05:46→13:53)
[2019-04-27] MEDS: HYDROCORTISONE 100 MG INJ IV SCH ×3 (05:46→21:00)
[2019-04-27] MEDS: LANSOPRAZOLE 30 MG CAP GTB SCH (06:00)
[2019-04-27] MEDS: MULTIVITAMINS 30 ML CUP GTB SCH (08:27)
[2019-04-27] MEDS: ASCORBIC ACID 500 MG TAB GTB SCH (08:27)
[2019-04-27] MEDS: FLUCONAZOLE 100 MG TAB PO SCH (08:28)
[2019-04-27] MEDS: ASPIRIN 81 MG TAB GTB SCH (08:28)
[2019-04-27] MEDS: ZINC SULFATE 220 MG CAP GTB SCH (08:28)
[2019-04-27] MEDS: DESMOPRESSIN 0.1 MG TAB GTB SCH ×2 (08:29→20:50)
[2019-04-27] MEDS: GABAPENTIN 300 MG CAP GTB SCH ×2 (08:30→20:50)
[2019-04-27] MEDS: FUROSEMIDE 20 MG INJ IV SCH (08:30)
[2019-04-27] MEDS: SILVER SULFADIAZINE 1% 25 GM CR TOP SCH ×2 (08:31→20:52)
[2019-04-27] MEDS: HYDROCORTISONE 1% 28.35 GM OINT TOP SCH ×3 (08:31→20:52)
[2019-04-27] MEDS: DOXYCYCLINE 100 MG in SOD CHLORIDE 0.9% 250 ML IVPB SCH (08:52)
[2019-04-27] MEDS ORDERED: INSULIN GLARGINE [LANTus] (100 UNITS/ML) SYG SC SCH (10:00)
[2019-04-27] MEDS: LEVOFLOXACIN 250MG/D5W (PMX) 50 ML IVPB SCH (10:33)
[2019-04-28] VITALS (18 sets, daily range): BP systolic 121–147; BP diastolic 58–70; PULSE 88–118; RESP 18–24
[2019-04-28] MEDS: INSULIN ASPART [NOVOLOG] 3 ML PEN SC SCH ×5 (00:48→23:38)
[2019-04-28] MEDS: HYDROCORTISONE 100 MG INJ IV SCH ×3 (05:53→21:08)
[2019-04-28] MEDS: LANSOPRAZOLE 30 MG CAP GTB SCH (05:53)
[2019-04-28] MEDS: IPRATROPIUM (HFA) 12.9 GM INHALER INH SCH ×3 (08:30→23:24)
[2019-04-28] MEDS: LEVALBUTEROL (HFA) 15 GM INHALER INH SCH ×3 (08:50→23:25)
[2019-04-28] MEDS ORDERED: POTASSIUM CHLORIDE (SR) 20 MEQ TAB PO STA (08:53)
[2019-04-28] MEDS: ASPIRIN 81 MG TAB GTB SCH (09:08)
[2019-04-28] MEDS: ASCORBIC ACID 500 MG TAB GTB SCH (09:09)
[2019-04-28] MEDS: FUROSEMIDE 20 MG INJ IV SCH (09:09)
[2019-04-28] MEDS: MULTIVITAMINS 30 ML CUP GTB SCH (09:09)
[2019-04-28] MEDS: DESMOPRESSIN 0.1 MG TAB GTB SCH ×2 (09:09→21:07)
[2019-04-28] MEDS: GABAPENTIN 300 MG CAP GTB SCH ×2 (09:09→21:31)
[2019-04-28] MEDS: ZINC SULFATE 220 MG CAP GTB SCH (09:09)
[2019-04-28] MEDS: HYDROCORTISONE 1% 28.35 GM OINT TOP SCH ×3 (09:10→21:09)
[2019-04-28] MEDS: SILVER SULFADIAZINE 1% 25 GM CR TOP SCH ×2 (09:10→21:09)
[2019-04-28] MEDS: ACETAMINOPHEN 650MG/20.3ML CUP GTB PRN (21:08)
[2019-04-29] VITALS (19 sets, daily range): BP systolic 110–154; BP diastolic 58–89; PULSE 79–105; RESP 18–21
[2019-04-29] MEDS: HYDROCORTISONE 100 MG INJ IV SCH ×3 (05:54→21:54)
[2019-04-29] MEDS: LANSOPRAZOLE 30 MG CAP GTB SCH (06:12)
[2019-04-29] MEDS: INSULIN ASPART [NOVOLOG] 3 ML PEN SC SCH ×3 (06:16→17:49)
[2019-04-29] MEDS: LEVALBUTEROL (HFA) 15 GM INHALER INH SCH ×2 (07:51→15:51)
[2019-04-29] MEDS: IPRATROPIUM (HFA) 12.9 GM INHALER INH SCH ×2 (07:52→15:51)
[2019-04-29] MEDS ORDERED: INSULIN GLARGINE [LANTus] (100 UNITS/ML) SYG SC SCH (08:00)
[2019-04-29] MEDS: FUROSEMIDE 20 MG INJ IV SCH (09:17)
[2019-04-29] MEDS: MULTIVITAMINS 30 ML CUP GTB SCH (09:17)
[2019-04-29] MEDS: GABAPENTIN 300 MG CAP GTB SCH ×2 (09:18→20:43)
[2019-04-29] MEDS: ASCORBIC ACID 500 MG TAB GTB SCH (09:18)
[2019-04-29] MEDS: DESMOPRESSIN 0.1 MG TAB GTB SCH ×2 (09:18→20:42)
[2019-04-29] MEDS: ZINC SULFATE 220 MG CAP GTB SCH (09:19)
[2019-04-29] MEDS: ASPIRIN 81 MG TAB GTB SCH (09:19)
[2019-04-29] MEDS: SILVER SULFADIAZINE 1% 25 GM CR TOP SCH ×2 (09:19→20:42)
[2019-04-29] MEDS: HYDROCORTISONE 1% 28.35 GM OINT TOP SCH ×3 (09:19→20:42)
[2019-04-29] MEDS ORDERED: POTASSIUM CHLORIDE (SR) 20 MEQ TAB PO STA (11:56)
[2019-04-29] MEDS ORDERED: LOPERAMIDE (0.2 MG/ML PO SYG) PO PRN (17:00)
[2019-04-29] MEDS ORDERED: LOPERAMIDE HCL 1 MG/5 ML LIQUID (10 ML UD CUP) PO PRN (17:30)
[2019-04-29] MEDS ORDERED: LOPERAMIDE 2 MG CAP PO PRN (17:30)
[2019-04-29] MEDS: POTASSIUM CHLORIDE (SR) 20 MEQ TAB PO SCH (20:43)
[2019-04-30] VITALS (17 sets, daily range): BP systolic 128–164; BP diastolic 68–87; PULSE 85–116; RESP 18–21
[2019-04-30] MEDS: INSULIN ASPART [NOVOLOG] 3 ML PEN SC SCH ×4 (00:07→18:17)
[2019-04-30] MEDS: LEVALBUTEROL (HFA) 15 GM INHALER INH SCH ×4 (00:53→23:30)
[2019-04-30] MEDS: IPRATROPIUM (HFA) 12.9 GM INHALER INH SCH ×4 (00:53→23:30)
[2019-04-30] MEDS: HYDROCORTISONE 100 MG INJ IV SCH ×3 (05:45→21:40)
[2019-04-30] MEDS: LANSOPRAZOLE 30 MG CAP GTB SCH (05:45)
[2019-04-30] MEDS: MULTIVITAMINS 30 ML CUP GTB SCH (08:33)
[2019-04-30] MEDS: ASPIRIN 81 MG TAB GTB SCH (08:33)
[2019-04-30] MEDS: ZINC SULFATE 220 MG CAP GTB SCH (08:33)
[2019-04-30] MEDS: GABAPENTIN 300 MG CAP GTB SCH ×2 (08:34→20:57)
[2019-04-30] MEDS: FUROSEMIDE 20 MG INJ IV SCH (08:34)
[2019-04-30] MEDS: DESMOPRESSIN 0.1 MG TAB GTB SCH ×2 (08:35→20:58)
[2019-04-30] MEDS: ASCORBIC ACID 500 MG TAB GTB SCH (08:35)
[2019-04-30] MEDS: POTASSIUM CHLORIDE (SR) 20 MEQ TAB PO SCH ×2 (08:35→20:57)
[2019-04-30] MEDS: SILVER SULFADIAZINE 1% 25 GM CR TOP SCH ×2 (08:36→20:57)
[2019-04-30] MEDS: HYDROCORTISONE 1% 28.35 GM OINT TOP SCH ×3 (08:37→20:57)
[2019-04-30] MEDS: INSULIN GLARGINE [LANTus] (100 UNITS/ML) SYG SC SCH (09:02)
[2019-05-01] VITALS (18 sets, daily range): BP systolic 136–167; BP diastolic 65–90; PULSE 83–113; RESP 17–20
[2019-05-01] MEDS: INSULIN ASPART [NOVOLOG] 3 ML PEN SC SCH ×4 (00:32→19:01)
[2019-05-01] MEDS: LANSOPRAZOLE 30 MG CAP GTB SCH (06:07)
[2019-05-01] MEDS: HYDROCORTISONE 100 MG INJ IV SCH ×3 (06:07→21:57)
[2019-05-01] MEDS: MULTIVITAMINS 30 ML CUP GTB SCH (08:29)
[2019-05-01] MEDS: ZINC SULFATE 220 MG CAP GTB SCH (08:29)
[2019-05-01] MEDS: GABAPENTIN 300 MG CAP GTB SCH ×2 (08:29→20:53)
[2019-05-01] MEDS: FUROSEMIDE 20 MG INJ IV SCH (08:29)
[2019-05-01] MEDS: DESMOPRESSIN 0.1 MG TAB GTB SCH ×2 (08:30→20:52)
[2019-05-01] MEDS: POTASSIUM CHLORIDE (SR) 20 MEQ TAB PO SCH ×2 (08:30→20:53)
[2019-05-01] MEDS: ASPIRIN 81 MG TAB GTB SCH (08:30)
[2019-05-01] MEDS: HYDROCORTISONE 1% 28.35 GM OINT TOP SCH ×3 (08:30→20:53)
[2019-05-01] MEDS: ASCORBIC ACID 500 MG TAB GTB SCH (08:30)
[2019-05-01] MEDS: SILVER SULFADIAZINE 1% 25 GM CR TOP SCH (08:31)
[2019-05-01] MEDS: IPRATROPIUM (HFA) 12.9 GM INHALER INH SCH (08:48)
[2019-05-01] MEDS: LEVALBUTEROL (HFA) 15 GM INHALER INH SCH (08:48)
[2019-05-01] MEDS: INSULIN GLARGINE [LANTus] (100 UNITS/ML) SYG SC SCH (08:59)
[2019-05-01] MEDS: LOPERAMIDE HCL 1 MG/5 ML LIQUID (10 ML UD CUP) GTB PRN (14:39)
[2019-05-02] VITALS (18 sets, daily range): BP systolic 128–159; BP diastolic 66–95; PULSE 76–125; RESP 18–19
[2019-05-02] MEDS: INSULIN ASPART [NOVOLOG] 3 ML PEN SC SCH ×4 (00:40→17:55)
[2019-05-02] MEDS: LANSOPRAZOLE 30 MG CAP GTB SCH (06:07)
[2019-05-02] MEDS: HYDROCORTISONE 100 MG INJ IV SCH ×3 (06:07→21:47)
[2019-05-02] MEDS: LEVALBUTEROL (HFA) 15 GM INHALER INH SCH ×3 (07:43→23:14)
[2019-05-02] MEDS: IPRATROPIUM (HFA) 12.9 GM INHALER INH SCH ×3 (07:44→23:14)
[2019-05-02] MEDS: GABAPENTIN 300 MG CAP GTB SCH ×2 (09:06→21:47)
[2019-05-02] MEDS: DESMOPRESSIN 0.1 MG TAB GTB SCH ×2 (09:06→21:47)
[2019-05-02] MEDS: MULTIVITAMINS 30 ML CUP GTB SCH (09:06)
[2019-05-02] MEDS: ASCORBIC ACID 500 MG TAB GTB SCH (09:07)
[2019-05-02] MEDS: POTASSIUM CHLORIDE (SR) 20 MEQ TAB PO SCH ×2 (09:07→21:47)
[2019-05-02] MEDS: COLLAGENASE 5 GM (UD JAR) TOP SCH (09:08)
[2019-05-02] MEDS: FUROSEMIDE 20 MG INJ IV SCH (09:09)
[2019-05-02] MEDS: HYDROCORTISONE 1% 28.35 GM OINT TOP SCH ×3 (09:09→21:48)
[2019-05-02] MEDS: ASPIRIN 81 MG TAB GTB SCH (09:43)
[2019-05-02] MEDS: INSULIN GLARGINE [LANTus] (100 UNITS/ML) SYG SC SCH (10:23)
[2019-05-02] MEDS: LORAZEPAM 2 MG INJ IV PRN ×2 (12:01→18:35)
[2019-05-02] MEDS ORDERED: POTASSIUM CHLORIDE 20 MEQ POWDER FOR ORAL SOLN GTB ONE (16:30)
[2019-05-03] VITALS (18 sets, daily range): BP systolic 149–166; BP diastolic 64–95; PULSE 105–115; RESP 17–20
[2019-05-03] MEDS: INSULIN ASPART [NOVOLOG] 3 ML PEN SC SCH ×4 (01:30→18:40)
[2019-05-03] MEDS: LORAZEPAM 2 MG INJ IV PRN (06:02)
[2019-05-03] MEDS: LANSOPRAZOLE 30 MG CAP GTB SCH (06:02)
[2019-05-03] MEDS: HYDROCORTISONE 100 MG INJ IV SCH ×3 (06:02→21:53)
[2019-05-03] MEDS: IPRATROPIUM (HFA) 12.9 GM INHALER INH SCH ×3 (08:17→23:31)
[2019-05-03] MEDS: LEVALBUTEROL (HFA) 15 GM INHALER INH SCH ×3 (08:17→23:31)
[2019-05-03] MEDS: COLLAGENASE 5 GM (UD JAR) TOP SCH (09:13)
[2019-05-03] MEDS: ASCORBIC ACID 500 MG TAB GTB SCH (09:14)
[2019-05-03] MEDS: MULTIVITAMINS 30 ML CUP GTB SCH (09:14)
[2019-05-03] MEDS: POTASSIUM CHLORIDE (SR) 20 MEQ TAB PO SCH ×2 (09:14→21:54)
[2019-05-03] MEDS: ASPIRIN 81 MG TAB GTB SCH (09:14)
[2019-05-03] MEDS: FUROSEMIDE 20 MG INJ IV SCH (09:14)
[2019-05-03] MEDS: GABAPENTIN 300 MG CAP GTB SCH ×2 (09:14→21:53)
[2019-05-03] MEDS: DESMOPRESSIN 0.1 MG TAB GTB SCH ×2 (09:15→21:55)
[2019-05-03] MEDS: HYDROCORTISONE 1% 28.35 GM OINT TOP SCH ×3 (09:16→21:55)
[2019-05-03] MEDS: LOPERAMIDE HCL 1 MG/5 ML LIQUID (10 ML UD CUP) GTB PRN (11:02)
[2019-05-03] MEDS: INSULIN GLARGINE [LANTus] (100 UNITS/ML) SYG SC SCH (13:18)
[2019-05-03] MEDS: morphine 2 MG INJ IV PRN (22:19)
[2019-05-04] VITALS (19 sets, daily range): BP systolic 125–177; BP diastolic 81–104; PULSE 100–112; RESP 16–18
[2019-05-04] MEDS: INSULIN ASPART [NOVOLOG] 3 ML PEN SC SCH ×4 (01:03→18:03)
[2019-05-04] MEDS: HYDROCORTISONE 100 MG INJ IV SCH ×3 (06:36→22:02)
[2019-05-04] MEDS: LANSOPRAZOLE 30 MG CAP GTB SCH (06:36)
[2019-05-04] MEDS: LEVALBUTEROL (HFA) 15 GM INHALER INH SCH ×3 (08:37→23:30)
[2019-05-04] MEDS: IPRATROPIUM (HFA) 12.9 GM INHALER INH SCH ×3 (08:37→23:30)
[2019-05-04] MEDS: INSULIN GLARGINE [LANTus] (100 UNITS/ML) SYG SC SCH (08:55)
[2019-05-04] MEDS: DESMOPRESSIN 0.1 MG TAB GTB SCH ×2 (08:58→22:02)
[2019-05-04] MEDS: GABAPENTIN 300 MG CAP GTB SCH ×2 (08:58→22:01)
[2019-05-04] MEDS: ASPIRIN 81 MG TAB GTB SCH (08:58)
[2019-05-04] MEDS: COLLAGENASE 5 GM (UD JAR) TOP SCH (08:59)
[2019-05-04] MEDS: ASCORBIC ACID 500 MG TAB GTB SCH (08:59)
[2019-05-04] MEDS: POTASSIUM CHLORIDE (SR) 20 MEQ TAB PO SCH ×2 (08:59→22:02)
[2019-05-04] MEDS: MULTIVITAMINS 30 ML CUP GTB SCH (08:59)
[2019-05-04] MEDS: HYDROCORTISONE 1% 28.35 GM OINT TOP SCH ×4 (09:00→22:03)
[2019-05-04] MEDS: FUROSEMIDE 20 MG INJ IV SCH (09:04)
[2019-05-04] MEDS ORDERED: CLONIDINE 0.1 MG/24 HR PATCH TRANSDERM ONE (10:00)
[2019-05-04] MEDS: POTASSIUM CHLORIDE 100 ML IVPB SCH ×2 (11:28→14:23)
[2019-05-04] MEDS: LOPERAMIDE HCL 1 MG/5 ML LIQUID (10 ML UD CUP) GTB PRN (18:49)
[2019-05-04] MEDS: metroNIDAZOLE 250 MG TAB GTB SCH ×2 (18:49→22:01)
[2019-05-04] MEDS: RIFAXIMIN 200 MG TAB PO SCH (22:02)
[2019-05-05] VITALS (18 sets, daily range): BP systolic 127–153; BP diastolic 65–79; PULSE 88–99; RESP 18–20
[2019-05-05] MEDS: INSULIN ASPART [NOVOLOG] 3 ML PEN SC SCH ×4 (02:10→17:38)
[2019-05-05] MEDS: metroNIDAZOLE 250 MG TAB GTB SCH ×3 (06:55→21:59)
[2019-05-05] MEDS: HYDROCORTISONE 100 MG INJ IV SCH ×3 (06:55→21:58)
[2019-05-05] MEDS: LANSOPRAZOLE 30 MG CAP GTB SCH (06:55)
[2019-05-05] MEDS: MULTIVITAMINS 30 ML CUP GTB SCH (08:35)
[2019-05-05] MEDS: GABAPENTIN 300 MG CAP GTB SCH ×2 (08:35→21:58)
[2019-05-05] MEDS: COLLAGENASE 5 GM (UD JAR) TOP SCH (08:35)
[2019-05-05] MEDS: POTASSIUM CHLORIDE (SR) 20 MEQ TAB PO SCH ×2 (08:35→21:58)
[2019-05-05] MEDS: RIFAXIMIN 200 MG TAB PO SCH ×3 (08:35→21:58)
[2019-05-05] MEDS: ASPIRIN 81 MG TAB GTB SCH (08:35)
[2019-05-05] MEDS: ASCORBIC ACID 500 MG TAB GTB SCH (08:35)
[2019-05-05] MEDS: DESMOPRESSIN 0.1 MG TAB GTB SCH ×2 (08:35→21:58)
[2019-05-05] MEDS: HYDROCORTISONE 1% 28.35 GM OINT TOP SCH ×3 (08:36→21:59)
[2019-05-05] MEDS: FUROSEMIDE 20 MG INJ IV SCH (08:36)
[2019-05-05] MEDS: INSULIN GLARGINE [LANTus] (100 UNITS/ML) SYG SC SCH (09:14)
[2019-05-05] MEDS: IPRATROPIUM (HFA) 12.9 GM INHALER INH SCH ×3 (09:36→23:37)
[2019-05-05] MEDS: LEVALBUTEROL (HFA) 15 GM INHALER INH SCH ×3 (09:36→23:37)
[2019-05-06] VITALS (18 sets, daily range): BP systolic 134–148; BP diastolic 68–82; PULSE 84–103; RESP 18–20
[2019-05-06] MEDS: INSULIN ASPART [NOVOLOG] 3 ML PEN SC SCH ×4 (01:17→17:26)
[2019-05-06] MEDS: LANSOPRAZOLE 30 MG CAP GTB SCH (06:48)
[2019-05-06] MEDS: HYDROCORTISONE 100 MG INJ IV SCH ×3 (06:48→22:20)
[2019-05-06] MEDS: metroNIDAZOLE 250 MG TAB GTB SCH ×3 (06:48→22:21)
[2019-05-06] MEDS: IPRATROPIUM (HFA) 12.9 GM INHALER INH SCH ×3 (08:50→23:41)
[2019-05-06] MEDS: LEVALBUTEROL (HFA) 15 GM INHALER INH SCH ×3 (08:50→23:41)
[2019-05-06] MEDS: ASCORBIC ACID 500 MG TAB GTB SCH (09:03)
[2019-05-06] MEDS: MULTIVITAMINS 30 ML CUP GTB SCH (09:03)
[2019-05-06] MEDS: COLLAGENASE 5 GM (UD JAR) TOP SCH (09:03)
[2019-05-06] MEDS: LOPERAMIDE HCL 1 MG/5 ML LIQUID (10 ML UD CUP) GTB PRN ×2 (09:03→15:07)
[2019-05-06] MEDS: GABAPENTIN 300 MG CAP GTB SCH ×2 (09:04→22:21)
[2019-05-06] MEDS: DESMOPRESSIN 0.1 MG TAB GTB SCH (09:04)
[2019-05-06] MEDS: RIFAXIMIN 200 MG TAB PO SCH ×3 (09:04→22:20)
[2019-05-06] MEDS: POTASSIUM CHLORIDE (SR) 20 MEQ TAB PO SCH ×2 (09:04→22:21)
[2019-05-06] MEDS: ASPIRIN 81 MG TAB GTB SCH (09:04)
[2019-05-06] MEDS: HYDROCORTISONE 1% 28.35 GM OINT TOP SCH ×3 (09:04→22:22)
[2019-05-06] MEDS: INSULIN GLARGINE [LANTus] (100 UNITS/ML) SYG SC SCH (09:26)
[2019-05-06] MEDS: POTASSIUM CHLORIDE 100 ML IVPB SCH ×2 (11:30→15:14)
[2019-05-06] MEDS: DIPHENHYDRAMINE 25 MG CAP GTB PRN (15:07)
[2019-05-07] VITALS (18 sets, daily range): BP systolic 145–158; BP diastolic 68–84; PULSE 83–103; RESP 18–20
[2019-05-07] MEDS: INSULIN ASPART [NOVOLOG] 3 ML PEN SC SCH ×5 (00:42→23:23)
[2019-05-07] MEDS: LANSOPRAZOLE 30 MG CAP GTB SCH (05:29)
[2019-05-07] MEDS: HYDROCORTISONE 100 MG INJ IV SCH ×2 (05:29→21:31)
[2019-05-07] MEDS: metroNIDAZOLE 250 MG TAB GTB SCH ×3 (05:29→21:31)
[2019-05-07] MEDS: LEVALBUTEROL (HFA) 15 GM INHALER INH SCH ×2 (08:58→16:30)
[2019-05-07] MEDS: IPRATROPIUM (HFA) 12.9 GM INHALER INH SCH ×2 (08:58→16:30)
[2019-05-07] MEDS: COLLAGENASE 5 GM (UD JAR) TOP SCH (09:10)
[2019-05-07] MEDS: MULTIVITAMINS 30 ML CUP GTB SCH (09:10)
[2019-05-07] MEDS: ACETAMINOPHEN 650MG/20.3ML CUP GTB PRN (09:10)
[2019-05-07] MEDS: HYDROCORTISONE 1% 28.35 GM OINT TOP SCH ×3 (09:10→21:33)
[2019-05-07] MEDS: GABAPENTIN 300 MG CAP GTB SCH ×2 (09:10→21:31)
[2019-05-07] MEDS: POTASSIUM CHLORIDE (SR) 20 MEQ TAB PO SCH ×2 (09:11→21:32)
[2019-05-07] MEDS: ASCORBIC ACID 500 MG TAB GTB SCH (09:11)
[2019-05-07] MEDS: RIFAXIMIN 200 MG TAB PO SCH ×2 (09:11→14:01)
[2019-05-07] MEDS: ASPIRIN 81 MG TAB GTB SCH (09:11)
[2019-05-07] MEDS: INSULIN GLARGINE [LANTus] (100 UNITS/ML) SYG SC SCH (09:16)
[2019-05-07] MEDS: LORAZEPAM 2 MG INJ IV PRN (18:04)
[2019-05-07] MEDS: CLOTRIMAZOLE 1% 45 GM VAG CR VAG SCH (21:31)
[2019-05-07] MEDS: METOPROLOL 25 MG TAB PO SCH (21:45)
[2019-05-08] VITALS (17 sets, daily range): BP systolic 121–160; BP diastolic 64–78; PULSE 84–102; RESP 18–26
[2019-05-08] MEDS: IPRATROPIUM (HFA) 12.9 GM INHALER INH SCH ×3 (00:44→15:28)
[2019-05-08] MEDS: LEVALBUTEROL (HFA) 15 GM INHALER INH SCH ×3 (00:44→15:29)
[2019-05-08] MEDS: LANSOPRAZOLE 30 MG CAP GTB SCH (05:55)
[2019-05-08] MEDS: metroNIDAZOLE 250 MG TAB GTB SCH ×2 (05:55→14:48)
[2019-05-08] MEDS: INSULIN ASPART [NOVOLOG] 3 ML PEN SC SCH ×4 (06:08→23:20)
[2019-05-08] MEDS: MULTIVITAMINS 30 ML CUP GTB SCH (10:06)
[2019-05-08] MEDS: HYDROCORTISONE 100 MG INJ IV SCH ×2 (10:06→20:32)
[2019-05-08] MEDS: ASCORBIC ACID 500 MG TAB GTB SCH (10:06)
[2019-05-08] MEDS: METOPROLOL 25 MG TAB PO SCH ×2 (10:07→20:34)
[2019-05-08] MEDS: GABAPENTIN 300 MG CAP GTB SCH ×2 (10:07→20:32)
[2019-05-08] MEDS: ASPIRIN 81 MG TAB GTB SCH (10:07)
[2019-05-08] MEDS: COLLAGENASE 5 GM (UD JAR) TOP SCH (10:07)
[2019-05-08] MEDS: HYDROCORTISONE 1% 28.35 GM OINT TOP SCH ×3 (10:08→20:33)
[2019-05-08] MEDS: POTASSIUM CHLORIDE (SR) 20 MEQ TAB PO SCH ×2 (10:08→20:32)
[2019-05-08] MEDS: INSULIN GLARGINE [LANTus] (100 UNITS/ML) SYG SC SCH (10:11)
[2019-05-08] MEDS: D5W + KCL 20 MEQ 1,000 ML IV SCH ×2 (10:22→23:24)
[2019-05-08] MEDS: LORAZEPAM 2 MG INJ IV PRN (14:48)
[2019-05-08] MEDS: CLOTRIMAZOLE 1% 45 GM VAG CR VAG SCH (20:33)
[2019-05-08] MEDS: DIPHENHYDRAMINE 25 MG CAP GTB PRN (22:56)
[2019-05-09] VITALS (19 sets, daily range): BP systolic 104–135; BP diastolic 55–67; PULSE 92–105; RESP 17–24
[2019-05-09] MEDS: IPRATROPIUM (HFA) 12.9 GM INHALER INH SCH ×3 (01:17→15:28)
[2019-05-09] MEDS: LEVALBUTEROL (HFA) 15 GM INHALER INH SCH ×3 (01:17→15:28)
[2019-05-09] MEDS: LANSOPRAZOLE 30 MG CAP GTB SCH (05:41)
[2019-05-09] MEDS: INSULIN ASPART [NOVOLOG] 3 ML PEN SC SCH ×3 (05:47→18:00)
[2019-05-09] MEDS: ASCORBIC ACID 500 MG TAB GTB SCH (09:12)
[2019-05-09] MEDS: POTASSIUM CHLORIDE (SR) 20 MEQ TAB PO SCH ×2 (09:12→20:37)
[2019-05-09] MEDS: COLLAGENASE 5 GM (UD JAR) TOP SCH (09:12)
[2019-05-09] MEDS: DESMOPRESSIN 0.1 MG TAB PEG SCH ×3 (09:13→20:36)
[2019-05-09] MEDS: METOPROLOL 25 MG TAB PO SCH ×2 (09:13→20:37)
[2019-05-09] MEDS: GABAPENTIN 300 MG CAP GTB SCH ×2 (09:13→20:42)
[2019-05-09] MEDS: MULTIVITAMINS 30 ML CUP GTB SCH (09:13)
[2019-05-09] MEDS: HYDROCORTISONE 100 MG INJ IV SCH ×2 (09:13→20:36)
[2019-05-09] MEDS: ASPIRIN 81 MG TAB GTB SCH (09:13)
[2019-05-09] MEDS: HYDROCORTISONE 1% 28.35 GM OINT TOP SCH ×3 (09:14→20:38)
[2019-05-09] MEDS: INSULIN GLARGINE [LANTus] (100 UNITS/ML) SYG SC SCH (09:44)
[2019-05-09] MEDS: CLOTRIMAZOLE 1% 45 GM VAG CR VAG SCH (20:39)
[2019-05-09] MEDS: LORAZEPAM 2 MG INJ IV PRN (22:15)
[2019-05-10] VITALS (18 sets, daily range): BP systolic 92–127; BP diastolic 53–63; PULSE 86–100; RESP 18–22
[2019-05-10] MEDS: INSULIN ASPART [NOVOLOG] 3 ML PEN SC SCH ×5 (00:16→17:33)
[2019-05-10] MEDS: IPRATROPIUM (HFA) 12.9 GM INHALER INH SCH ×4 (01:04→23:14)
[2019-05-10] MEDS: LEVALBUTEROL (HFA) 15 GM INHALER INH SCH ×4 (01:05→23:14)
[2019-05-10] MEDS: LANSOPRAZOLE 30 MG CAP GTB SCH (06:20)
[2019-05-10] MEDS: GABAPENTIN 300 MG CAP GTB SCH ×2 (08:07→20:10)
[2019-05-10] MEDS: HYDROCORTISONE 100 MG INJ IV SCH ×2 (08:07→20:09)
[2019-05-10] MEDS: MULTIVITAMINS 30 ML CUP GTB SCH (08:07)
[2019-05-10] MEDS: COLLAGENASE 5 GM (UD JAR) TOP SCH (08:07)
[2019-05-10] MEDS: DIPHENHYDRAMINE 25 MG CAP GTB PRN ×2 (08:07→20:10)
[2019-05-10] MEDS: ASCORBIC ACID 500 MG TAB GTB SCH (08:07)
[2019-05-10] MEDS: DESMOPRESSIN 0.1 MG TAB PEG SCH ×3 (08:07→20:11)
[2019-05-10] MEDS: METOPROLOL 25 MG TAB PO SCH ×2 (08:08→20:11)
[2019-05-10] MEDS: HYDROCORTISONE 1% 28.35 GM OINT TOP SCH ×3 (08:08→20:12)
[2019-05-10] MEDS: ASPIRIN 81 MG TAB GTB SCH (08:09)
[2019-05-10] MEDS: INSULIN GLARGINE [LANTus] (100 UNITS/ML) SYG SC SCH (08:46)
[2019-05-10] MEDS: POTASSIUM CHLORIDE (SR) 20 MEQ TAB PO SCH ×2 (10:09→20:10)
[2019-05-10] MEDS: FLUCONAZOLE 100 MG TAB PO SCH (13:27)
[2019-05-10] MEDS: LORAZEPAM 2 MG INJ IV PRN (20:09)
[2019-05-10] MEDS: CLOTRIMAZOLE 1% 45 GM VAG CR VAG SCH (20:12)
[2019-05-11] VITALS (18 sets, daily range): BP systolic 94–148; BP diastolic 52–73; PULSE 68–90; RESP 17–23
[2019-05-11] MEDS: INSULIN ASPART [NOVOLOG] 3 ML PEN SC SCH ×4 (00:26→17:02)
[2019-05-11] MEDS: LANSOPRAZOLE 30 MG CAP GTB SCH (05:03)
[2019-05-11] MEDS: ACETAMINOPHEN 650MG/20.3ML CUP GTB PRN (06:11)
[2019-05-11] MEDS: LORAZEPAM 2 MG INJ IV PRN ×2 (08:13→18:01)
[2019-05-11] MEDS: HYDROCORTISONE 100 MG INJ IV SCH ×2 (09:02→22:05)
[2019-05-11] MEDS: ASPIRIN 81 MG TAB GTB SCH (09:03)
[2019-05-11] MEDS: GABAPENTIN 300 MG CAP GTB SCH ×2 (09:03→22:00)
[2019-05-11] MEDS: MULTIVITAMINS 30 ML CUP GTB SCH (09:03)
[2019-05-11] MEDS: FLUCONAZOLE 100 MG TAB PO SCH (09:04)
[2019-05-11] MEDS: METOPROLOL 25 MG TAB PO SCH ×2 (09:04→22:01)
[2019-05-11] MEDS: DESMOPRESSIN 0.1 MG TAB PEG SCH ×3 (09:04→22:00)
[2019-05-11] MEDS: POTASSIUM CHLORIDE (SR) 20 MEQ TAB PO SCH ×2 (09:04→21:59)
[2019-05-11] MEDS: ASCORBIC ACID 500 MG TAB GTB SCH (09:05)
[2019-05-11] MEDS: HYDROCORTISONE 1% 28.35 GM OINT TOP SCH ×3 (09:05→22:02)
[2019-05-11] MEDS: COLLAGENASE 5 GM (UD JAR) TOP SCH (09:44)
[2019-05-11] MEDS: DIPHENHYDRAMINE 25 MG CAP GTB PRN (09:44)
[2019-05-11] MEDS: IPRATROPIUM (HFA) 12.9 GM INHALER INH SCH ×3 (09:47→23:26)
[2019-05-11] MEDS: LEVALBUTEROL (HFA) 15 GM INHALER INH SCH ×3 (09:47→23:26)
[2019-05-11] MEDS: INSULIN GLARGINE [LANTus] (100 UNITS/ML) SYG SC SCH (10:07)
[2019-05-11] MEDS: CLOTRIMAZOLE 1% 45 GM VAG CR VAG SCH (22:04)
[2019-05-11] MEDS: POTASSIUM CHLORIDE 20 MEQ POWDER FOR ORAL SOLN GTB SCH (22:45)
[2019-05-12] VITALS (17 sets, daily range): BP systolic 115–153; BP diastolic 59–74; PULSE 67–83; RESP 18–20
[2019-05-12] MEDS: D5W + KCL 20 MEQ 1,000 ML IV SCH ×3 (00:06→23:26)
[2019-05-12] MEDS: LANSOPRAZOLE 30 MG CAP GTB SCH (05:23)
[2019-05-12] MEDS: DIPHENHYDRAMINE 25 MG CAP GTB PRN (05:23)
[2019-05-12] MEDS: INSULIN ASPART [NOVOLOG] 3 ML PEN SC SCH ×5 (06:00→23:23)
[2019-05-12] MEDS: HYDROCORTISONE 1% 28.35 GM OINT TOP SCH ×3 (09:09→22:08)
[2019-05-12] MEDS: POTASSIUM CHLORIDE 20 MEQ POWDER FOR ORAL SOLN GTB SCH ×2 (09:09→22:04)
[2019-05-12] MEDS: DESMOPRESSIN 0.1 MG TAB PEG SCH ×3 (09:10→22:04)
[2019-05-12] MEDS: FLUCONAZOLE 100 MG TAB PO SCH (09:10)
[2019-05-12] MEDS: ASPIRIN 81 MG TAB GTB SCH (09:10)
[2019-05-12] MEDS: GABAPENTIN 300 MG CAP GTB SCH ×2 (09:10→22:05)
[2019-05-12] MEDS: METOPROLOL 25 MG TAB PO SCH ×2 (09:10→22:05)
[2019-05-12] MEDS: MULTIVITAMINS 30 ML CUP GTB SCH (09:10)
[2019-05-12] MEDS: ASCORBIC ACID 500 MG TAB GTB SCH (09:10)
[2019-05-12] MEDS: COLLAGENASE 5 GM (UD JAR) TOP SCH (09:10)
[2019-05-12] MEDS: HYDROCORTISONE 100 MG INJ IV SCH ×2 (09:18→22:05)
[2019-05-12] MEDS: LEVALBUTEROL (HFA) 15 GM INHALER INH SCH ×2 (09:26→16:57)
[2019-05-12] MEDS: IPRATROPIUM (HFA) 12.9 GM INHALER INH SCH ×2 (09:26→16:57)
[2019-05-12] MEDS: INSULIN GLARGINE [LANTus] (100 UNITS/ML) SYG SC SCH (09:36)
[2019-05-12] MEDS: CLOTRIMAZOLE 1% 45 GM VAG CR VAG SCH (22:06)
[2019-05-13] VITALS (17 sets, daily range): BP systolic 128–145; BP diastolic 66–74; PULSE 68–77; RESP 18–20
[2019-05-13] MEDS: IPRATROPIUM (HFA) 12.9 GM INHALER INH SCH ×4 (00:03→23:28)
[2019-05-13] MEDS: LEVALBUTEROL (HFA) 15 GM INHALER INH SCH ×4 (00:04→23:28)
[2019-05-13] MEDS: LANSOPRAZOLE 30 MG CAP GTB SCH (05:26)
[2019-05-13] MEDS: INSULIN ASPART [NOVOLOG] 3 ML PEN SC SCH ×3 (06:31→17:52)
[2019-05-13] MEDS: METOPROLOL 25 MG TAB PO SCH ×2 (09:16→22:20)
[2019-05-13] MEDS: FLUCONAZOLE 100 MG TAB PO SCH (09:16)
[2019-05-13] MEDS: COLLAGENASE 5 GM (UD JAR) TOP SCH (09:16)
[2019-05-13] MEDS: MULTIVITAMINS 30 ML CUP GTB SCH (09:16)
[2019-05-13] MEDS: POTASSIUM CHLORIDE 20 MEQ POWDER FOR ORAL SOLN GTB SCH ×2 (09:17→22:19)
[2019-05-13] MEDS: GABAPENTIN 300 MG CAP GTB SCH ×2 (09:17→22:19)
[2019-05-13] MEDS: HYDROCORTISONE 100 MG INJ IV SCH ×2 (09:17→22:19)
[2019-05-13] MEDS: DESMOPRESSIN 0.1 MG TAB PEG SCH ×3 (09:17→22:19)
[2019-05-13] MEDS: ASPIRIN 81 MG TAB GTB SCH (09:17)
[2019-05-13] MEDS: ASCORBIC ACID 500 MG TAB GTB SCH (09:17)
[2019-05-13] MEDS: HYDROCORTISONE 1% 28.35 GM OINT TOP SCH ×3 (09:18→22:19)
[2019-05-13] MEDS: INSULIN GLARGINE [LANTus] (100 UNITS/ML) SYG SC SCH (10:10)
[2019-05-13] MEDS: D5W + KCL 20 MEQ 1,000 ML IV SCH ×2 (12:38→14:30)
[2019-05-13] MEDS: CLOTRIMAZOLE 1% 45 GM VAG CR VAG SCH (22:18)
[2019-05-14] VITALS (18 sets, daily range): BP systolic 121–146; BP diastolic 62–80; PULSE 66–75; RESP 18–21
[2019-05-14] MEDS: D5W + KCL 20 MEQ 1,000 ML IV SCH ×2 (03:25→16:01)
[2019-05-14] MEDS: LANSOPRAZOLE 30 MG CAP GTB SCH (05:06)
[2019-05-14] MEDS: INSULIN ASPART [NOVOLOG] 3 ML PEN SC SCH ×5 (05:44→23:43)
[2019-05-14] MEDS: LEVALBUTEROL (HFA) 15 GM INHALER INH SCH ×3 (07:54→23:36)
[2019-05-14] MEDS: IPRATROPIUM (HFA) 12.9 GM INHALER INH SCH ×3 (07:54→23:36)
[2019-05-14] MEDS: ASCORBIC ACID 500 MG TAB GTB SCH (08:48)
[2019-05-14] MEDS: DESMOPRESSIN 0.1 MG TAB PEG SCH ×3 (08:48→23:43)
[2019-05-14] MEDS: COLLAGENASE 5 GM (UD JAR) TOP SCH (08:48)
[2019-05-14] MEDS: POTASSIUM CHLORIDE 20 MEQ POWDER FOR ORAL SOLN GTB SCH ×2 (08:48→20:43)
[2019-05-14] MEDS: GABAPENTIN 300 MG CAP GTB SCH ×2 (08:48→20:44)
[2019-05-14] MEDS: FLUCONAZOLE 100 MG TAB PO SCH (08:48)
[2019-05-14] MEDS: MULTIVITAMINS 30 ML CUP GTB SCH (08:49)
[2019-05-14] MEDS: HYDROCORTISONE 1% 28.35 GM OINT TOP SCH ×3 (08:49→20:45)
[2019-05-14] MEDS: ASPIRIN 81 MG TAB GTB SCH (08:49)
[2019-05-14] MEDS: HYDROCORTISONE 100 MG INJ IV SCH ×2 (08:49→20:45)
[2019-05-14] MEDS: METOPROLOL 25 MG TAB PO SCH ×2 (08:49→20:44)
[2019-05-14] MEDS: INSULIN GLARGINE [LANTus] (100 UNITS/ML) SYG SC SCH (09:01)
[2019-05-15] VITALS (17 sets, daily range): BP systolic 127–156; BP diastolic 67–78; PULSE 65–81; RESP 15–22
[2019-05-15] MEDS: D5W + KCL 20 MEQ 1,000 ML IV SCH ×2 (03:47→16:16)
[2019-05-15] MEDS: LANSOPRAZOLE 30 MG CAP GTB SCH (05:43)
[2019-05-15] MEDS: INSULIN ASPART [NOVOLOG] 3 ML PEN SC SCH ×4 (06:06→23:57)
[2019-05-15] MEDS: POTASSIUM CHLORIDE 20 MEQ POWDER FOR ORAL SOLN GTB SCH ×2 (08:28→20:30)
[2019-05-15] MEDS: FLUCONAZOLE 100 MG TAB PO SCH (08:28)
[2019-05-15] MEDS: GABAPENTIN 300 MG CAP GTB SCH ×2 (08:28→20:25)
[2019-05-15] MEDS: ASCORBIC ACID 500 MG TAB GTB SCH (08:28)
[2019-05-15] MEDS: DESMOPRESSIN 0.1 MG TAB PEG SCH ×3 (08:28→20:25)
[2019-05-15] MEDS: ASPIRIN 81 MG TAB GTB SCH (08:28)
[2019-05-15] MEDS: HYDROCORTISONE 1% 28.35 GM OINT TOP SCH ×3 (08:29→20:35)
[2019-05-15] MEDS: MULTIVITAMINS 30 ML CUP GTB SCH (08:29)
[2019-05-15] MEDS: HYDROCORTISONE 100 MG INJ IV SCH ×2 (08:29→20:29)
[2019-05-15] MEDS: METOPROLOL 25 MG TAB PO SCH ×2 (08:29→20:29)
[2019-05-15] MEDS: COLLAGENASE 5 GM (UD JAR) TOP SCH (08:29)
[2019-05-15] MEDS: INSULIN GLARGINE [LANTus] (100 UNITS/ML) SYG SC SCH (08:59)
[2019-05-15] MEDS: LEVALBUTEROL (HFA) 15 GM INHALER INH SCH ×2 (10:00→15:17)
[2019-05-15] MEDS: IPRATROPIUM (HFA) 12.9 GM INHALER INH SCH ×2 (10:00→15:18)
[2019-05-16] VITALS (15 sets, daily range): BP systolic 114–171; BP diastolic 69–81; PULSE 65–79; RESP 17–21
[2019-05-16] MEDS: IPRATROPIUM (HFA) 12.9 GM INHALER INH SCH ×3 (01:06→16:06)
[2019-05-16] MEDS: LEVALBUTEROL (HFA) 15 GM INHALER INH SCH ×3 (01:07→16:06)
[2019-05-16] MEDS: LANSOPRAZOLE 30 MG CAP GTB SCH (05:05)
[2019-05-16] MEDS: D5W + KCL 20 MEQ 1,000 ML IV SCH (05:05)
[2019-05-16] MEDS: INSULIN ASPART [NOVOLOG] 3 ML PEN SC SCH ×3 (05:27→17:04)
[2019-05-16] MEDS: INSULIN GLARGINE [LANTus] (100 UNITS/ML) SYG SC SCH (07:57)
[2019-05-16] MEDS: POTASSIUM CHLORIDE 20 MEQ POWDER FOR ORAL SOLN GTB SCH ×2 (08:34→22:39)
[2019-05-16] MEDS: ASCORBIC ACID 500 MG TAB GTB SCH (08:34)
[2019-05-16] MEDS: FLUCONAZOLE 100 MG TAB PO SCH (08:34)
[2019-05-16] MEDS: DESMOPRESSIN 0.1 MG TAB PEG SCH ×2 (08:34→12:11)
[2019-05-16] MEDS: ASPIRIN 81 MG TAB GTB SCH (08:35)
[2019-05-16] MEDS: METOPROLOL 25 MG TAB PO SCH ×2 (08:35→21:00)
[2019-05-16] MEDS: COLLAGENASE 5 GM (UD JAR) TOP SCH (08:35)
[2019-05-16] MEDS: HYDROCORTISONE 100 MG INJ IV SCH (08:35)
[2019-05-16] MEDS: MULTIVITAMINS 30 ML CUP GTB SCH (08:35)
[2019-05-16] MEDS: GABAPENTIN 300 MG CAP GTB SCH ×2 (08:35→22:41)
[2019-05-16] MEDS: HYDROCORTISONE 1% 28.35 GM OINT TOP SCH ×3 (08:39→21:00)
[2019-05-16] MEDS: DESMOPRESSIN 0.1 MG TAB PO SCH (21:00)
[2019-05-17] VITALS (18 sets, daily range): BP systolic 109–158; BP diastolic 55–81; PULSE 66–90; RESP 18–23
[2019-05-17] MEDS: IPRATROPIUM (HFA) 12.9 GM INHALER INH SCH ×3 (00:12→17:11)
[2019-05-17] MEDS: LEVALBUTEROL (HFA) 15 GM INHALER INH SCH ×3 (00:12→17:11)
[2019-05-17] MEDS: INSULIN ASPART [NOVOLOG] 3 ML PEN SC SCH ×4 (06:00→17:05)
[2019-05-17] MEDS: LANSOPRAZOLE 30 MG CAP GTB SCH (06:00)
[2019-05-17] MEDS: INSULIN GLARGINE [LANTus] (100 UNITS/ML) SYG SC SCH (07:58)
[2019-05-17] MEDS ORDERED: POTASSIUM CHLORIDE (SR) 10 MEQ TAB PO ONE ×2 (08:00→10:00)
[2019-05-17] MEDS: POTASSIUM CHLORIDE 20 MEQ POWDER FOR ORAL SOLN GTB SCH ×2 (08:19→21:46)
[2019-05-17] MEDS: DESMOPRESSIN 0.1 MG TAB PO SCH ×2 (08:19→21:47)
[2019-05-17] MEDS: MULTIVITAMINS 30 ML CUP GTB SCH (08:19)
[2019-05-17] MEDS: FLUCONAZOLE 100 MG TAB PO SCH (08:19)
[2019-05-17] MEDS: GABAPENTIN 300 MG CAP GTB SCH ×2 (08:19→21:46)
[2019-05-17] MEDS: ASPIRIN 81 MG TAB GTB SCH (08:20)
[2019-05-17] MEDS: HYDROCORTISONE 100 MG INJ IV SCH ×2 (08:20→21:48)
[2019-05-17] MEDS: ASCORBIC ACID 500 MG TAB GTB SCH (08:20)
[2019-05-17] MEDS: METOPROLOL 25 MG TAB PO SCH ×2 (08:20→21:47)
[2019-05-17] MEDS: COLLAGENASE 5 GM (UD JAR) TOP SCH (08:21)
[2019-05-17] MEDS: HYDROCORTISONE 1% 28.35 GM OINT TOP SCH ×3 (08:21→21:48)
[2019-05-17] MEDS: ACETAMINOPHEN 650MG/20.3ML CUP GTB PRN (08:35)
[2019-05-17] MEDS ORDERED: POTASSIUM CHLORIDE 20 MEQ POWDER FOR ORAL SOLN GTB ONE (10:00)
[2019-05-18] VITALS (18 sets, daily range): BP systolic 93–156; BP diastolic 51–77; PULSE 73–103; RESP 18–22
[2019-05-18] MEDS: IPRATROPIUM (HFA) 12.9 GM INHALER INH SCH ×4 (00:47→23:26)
[2019-05-18] MEDS: LEVALBUTEROL (HFA) 15 GM INHALER INH SCH ×4 (00:47→23:26)
[2019-05-18] MEDS: LANSOPRAZOLE 30 MG CAP GTB SCH (06:12)
[2019-05-18] MEDS: INSULIN ASPART [NOVOLOG] 3 ML PEN SC SCH ×5 (06:15→23:58)
[2019-05-18] MEDS: ASCORBIC ACID 500 MG TAB GTB SCH (09:14)
[2019-05-18] MEDS: ASPIRIN 81 MG TAB GTB SCH (09:14)
[2019-05-18] MEDS: FLUCONAZOLE 100 MG TAB PO SCH (09:14)
[2019-05-18] MEDS: GABAPENTIN 300 MG CAP GTB SCH ×2 (09:14→20:50)
[2019-05-18] MEDS: MULTIVITAMINS 30 ML CUP GTB SCH (09:14)
[2019-05-18] MEDS: POTASSIUM CHLORIDE 20 MEQ POWDER FOR ORAL SOLN GTB SCH ×2 (09:14→20:50)
[2019-05-18] MEDS: DESMOPRESSIN 0.1 MG TAB PO SCH ×2 (09:15→20:50)
[2019-05-18] MEDS: HYDROCORTISONE 100 MG INJ IV SCH ×2 (09:15→20:50)
[2019-05-18] MEDS: METOPROLOL 25 MG TAB PO SCH ×2 (09:15→20:51)
[2019-05-18] MEDS: COLLAGENASE 5 GM (UD JAR) TOP SCH (09:16)
[2019-05-18] MEDS: HYDROCORTISONE 1% 28.35 GM OINT TOP SCH ×3 (09:16→20:50)
[2019-05-18] MEDS: DIPHENHYDRAMINE 25 MG CAP GTB PRN (09:42)
[2019-05-18] MEDS: INSULIN GLARGINE [LANTus] (100 UNITS/ML) SYG SC SCH (10:45)
[2019-05-18] MEDS: LORAZEPAM 2 MG INJ IV PRN ×2 (15:30→22:32)
[2019-05-18] MEDS: MEROPENEM 1 GM/50ML(PMX) 50 ML IVPB SCH (15:31)
[2019-05-18] MEDS: morphine 2 MG INJ IV PRN (18:40)
[2019-05-19] VITALS (22 sets, daily range): BP systolic 84–158; BP diastolic 49–83; PULSE 63–101; RESP 18–35
[2019-05-19] MEDS: MEROPENEM 1 GM/50ML(PMX) 50 ML IVPB SCH (02:19)
[2019-05-19] MEDS: INSULIN ASPART [NOVOLOG] 3 ML PEN SC SCH ×3 (05:07→18:00)
[2019-05-19] MEDS: LANSOPRAZOLE 30 MG CAP GTB SCH (05:08)
[2019-05-19] MEDS: LORAZEPAM 2 MG INJ IV PRN (07:52)
[2019-05-19] MEDS: INSULIN GLARGINE [LANTus] (100 UNITS/ML) SYG SC SCH (08:05)
[2019-05-19] MEDS: IPRATROPIUM (HFA) 12.9 GM INHALER INH SCH ×3 (08:13→23:26)
[2019-05-19] MEDS: LEVALBUTEROL (HFA) 15 GM INHALER INH SCH ×3 (08:13→23:26)
[2019-05-19] MEDS: GABAPENTIN 300 MG CAP GTB SCH ×2 (08:46→21:15)
[2019-05-19] MEDS: POTASSIUM CHLORIDE 20 MEQ POWDER FOR ORAL SOLN GTB SCH ×2 (08:46→21:26)
[2019-05-19] MEDS: FLUCONAZOLE 100 MG TAB PO SCH (08:46)
[2019-05-19] MEDS: DESMOPRESSIN 0.1 MG TAB PO SCH ×2 (08:46→21:15)
[2019-05-19] MEDS: ASCORBIC ACID 500 MG TAB GTB SCH (08:46)
[2019-05-19] MEDS: ASPIRIN 81 MG TAB GTB SCH (08:46)
[2019-05-19] MEDS: METOPROLOL 25 MG TAB PO SCH ×2 (08:47→21:15)
[2019-05-19] MEDS: COLLAGENASE 5 GM (UD JAR) TOP SCH (08:47)
[2019-05-19] MEDS: HYDROCORTISONE 100 MG INJ IV SCH ×2 (08:47→21:14)
[2019-05-19] MEDS: MULTIVITAMINS 30 ML CUP GTB SCH (08:48)
[2019-05-19] MEDS: HYDROCORTISONE 1% 28.35 GM OINT TOP SCH ×3 (08:48→21:15)
[2019-05-19] MEDS: CEFTRIAXONE 2 GM/50 ML (PMX) 50 ML IVPB SCH (15:56)
[2019-05-19] MEDS: DIPHENHYDRAMINE 25 MG CAP GTB PRN (21:15)
[2019-05-19] MEDS: ACETAMINOPHEN 650MG/20.3ML CUP GTB PRN (21:15)
[2019-05-20] VITALS (16 sets, daily range): BP systolic 128–151; BP diastolic 58–97; PULSE 69–94; RESP 18–20
[2019-05-20] MEDS: ACETAMINOPHEN 650MG/20.3ML CUP GTB PRN (05:26)
[2019-05-20] MEDS: DIPHENHYDRAMINE 25 MG CAP GTB PRN ×3 (05:34→20:05)
[2019-05-20] MEDS: LANSOPRAZOLE 30 MG CAP GTB SCH (05:34)
[2019-05-20] MEDS: INSULIN ASPART [NOVOLOG] 3 ML PEN SC SCH ×4 (05:36→17:37)
[2019-05-20] MEDS: LEVALBUTEROL (HFA) 15 GM INHALER INH SCH ×3 (08:04→23:36)
[2019-05-20] MEDS: IPRATROPIUM (HFA) 12.9 GM INHALER INH SCH ×3 (08:04→23:36)
[2019-05-20] MEDS: HYDROCORTISONE 100 MG INJ IV SCH ×2 (08:18→20:36)
[2019-05-20] MEDS: HYDROCORTISONE 1% 28.35 GM OINT TOP SCH ×3 (08:18→20:37)
[2019-05-20] MEDS: POTASSIUM CHLORIDE 20 MEQ POWDER FOR ORAL SOLN GTB SCH ×2 (08:18→20:36)
[2019-05-20] MEDS: MULTIVITAMINS 30 ML CUP GTB SCH (08:18)
[2019-05-20] MEDS: COLLAGENASE 5 GM (UD JAR) TOP SCH (08:18)
[2019-05-20] MEDS: ASCORBIC ACID 500 MG TAB GTB SCH (08:19)
[2019-05-20] MEDS: DESMOPRESSIN 0.1 MG TAB PO SCH ×2 (08:19→20:36)
[2019-05-20] MEDS: GABAPENTIN 300 MG CAP GTB SCH ×2 (08:19→20:36)
[2019-05-20] MEDS: FLUCONAZOLE 100 MG TAB PO SCH (08:19)
[2019-05-20] MEDS: ASPIRIN 81 MG TAB GTB SCH (08:19)
[2019-05-20] MEDS: METOPROLOL 25 MG TAB PO SCH ×2 (08:19→20:37)
[2019-05-20] MEDS: LORAZEPAM 2 MG INJ IV PRN ×2 (08:20→20:24)
[2019-05-20] MEDS: INSULIN GLARGINE [LANTus] (100 UNITS/ML) SYG SC SCH (08:54)
[2019-05-20] MEDS: CEFTRIAXONE 2 GM/50 ML (PMX) 50 ML IVPB SCH (13:33)
[2019-05-21] VITALS (17 sets, daily range): BP systolic 92–138; BP diastolic 53–71; PULSE 76–90; RESP 15–22
[2019-05-21] MEDS: INSULIN ASPART [NOVOLOG] 3 ML PEN SC SCH ×5 (06:00→23:59)
[2019-05-21] MEDS: LANSOPRAZOLE 30 MG CAP GTB SCH (06:38)
[2019-05-21] MEDS: LORAZEPAM 2 MG INJ IV PRN ×2 (06:38→23:59)
[2019-05-21] MEDS: IPRATROPIUM (HFA) 12.9 GM INHALER INH SCH ×3 (08:11→23:15)
[2019-05-21] MEDS: LEVALBUTEROL (HFA) 15 GM INHALER INH SCH ×3 (08:11→23:15)
[2019-05-21] MEDS: POTASSIUM CHLORIDE 20 MEQ POWDER FOR ORAL SOLN GTB SCH ×2 (09:03→21:59)
[2019-05-21] MEDS: DESMOPRESSIN 0.1 MG TAB PO SCH ×2 (09:04→21:59)
[2019-05-21] MEDS: HYDROCORTISONE 100 MG INJ IV SCH (09:04)
[2019-05-21] MEDS: COLLAGENASE 5 GM (UD JAR) TOP SCH (09:04)
[2019-05-21] MEDS: ASPIRIN 81 MG TAB GTB SCH (09:04)
[2019-05-21] MEDS: ASCORBIC ACID 500 MG TAB GTB SCH (09:04)
[2019-05-21] MEDS: GABAPENTIN 300 MG CAP GTB SCH ×2 (09:04→21:59)
[2019-05-21] MEDS: MULTIVITAMINS 30 ML CUP GTB SCH (09:04)
[2019-05-21] MEDS: FLUCONAZOLE 100 MG TAB PO SCH (09:04)
[2019-05-21] MEDS: METOPROLOL 25 MG TAB PO SCH ×2 (09:05→22:00)
[2019-05-21] MEDS: HYDROCORTISONE 1% 28.35 GM OINT TOP SCH ×3 (09:06→22:00)
[2019-05-21] MEDS: DIPHENHYDRAMINE 25 MG CAP GTB PRN ×2 (09:22→22:01)
[2019-05-21] MEDS: INSULIN GLARGINE [LANTus] (100 UNITS/ML) SYG SC SCH (09:36)
[2019-05-21] MEDS: CEFTRIAXONE 2 GM/50 ML (PMX) 50 ML IVPB SCH (14:49)
[2019-05-21] MEDS: predniSONE 20 MG TAB PO SCH (18:28)
[2019-05-21] MEDS: DEXTROSE 50% 50 ML SYRINGE IV PRN (18:34)
[2019-05-22] VITALS (19 sets, daily range): BP systolic 116–160; BP diastolic 62–90; PULSE 73–112; RESP 18–29
[2019-05-22] MEDS: INSULIN ASPART [NOVOLOG] 3 ML PEN SC SCH ×4 (06:00→23:57)
[2019-05-22] MEDS: LANSOPRAZOLE 30 MG CAP GTB SCH (06:00)
[2019-05-22] MEDS: LEVALBUTEROL (HFA) 15 GM INHALER INH SCH ×3 (08:12→23:49)
[2019-05-22] MEDS: IPRATROPIUM (HFA) 12.9 GM INHALER INH SCH ×3 (08:13→23:49)
[2019-05-22] MEDS: COLLAGENASE 5 GM (UD JAR) TOP SCH (08:31)
[2019-05-22] MEDS: MULTIVITAMINS 30 ML CUP GTB SCH (08:31)
[2019-05-22] MEDS: FLUCONAZOLE 100 MG TAB PO SCH (08:32)
[2019-05-22] MEDS: DIPHENHYDRAMINE 25 MG CAP GTB PRN ×2 (08:32→20:46)
[2019-05-22] MEDS: ASCORBIC ACID 500 MG TAB GTB SCH (08:32)
[2019-05-22] MEDS: GABAPENTIN 300 MG CAP GTB SCH ×2 (08:32→20:27)
[2019-05-22] MEDS: predniSONE 20 MG TAB PO SCH (08:32)
[2019-05-22] MEDS: DESMOPRESSIN 0.1 MG TAB PO SCH ×3 (08:32→20:26)
[2019-05-22] MEDS: POTASSIUM CHLORIDE 20 MEQ POWDER FOR ORAL SOLN GTB SCH ×2 (08:32→20:26)
[2019-05-22] MEDS: METOPROLOL 25 MG TAB PO SCH ×2 (08:33→20:47)
[2019-05-22] MEDS: HYDROCORTISONE 1% 28.35 GM OINT TOP SCH ×3 (08:34→20:47)
[2019-05-22] MEDS: INSULIN GLARGINE [LANTus] (100 UNITS/ML) SYG SC SCH (09:06)
[2019-05-22] MEDS: CEFTRIAXONE 2 GM/50 ML (PMX) 50 ML IVPB SCH (14:20)
[2019-05-22] MEDS: LORAZEPAM 2 MG INJ IV PRN (14:20)
[2019-05-22] MEDS: LOPERAMIDE HCL 1 MG/5 ML LIQUID (10 ML UD CUP) GTB PRN (20:27)
[2019-05-23] VITALS (17 sets, daily range): BP systolic 81–148; BP diastolic 51–78; PULSE 68–95; RESP 17–20
[2019-05-23] MEDS: LORAZEPAM 2 MG INJ IV PRN ×3 (02:34→20:27)
[2019-05-23] MEDS: LOPERAMIDE HCL 1 MG/5 ML LIQUID (10 ML UD CUP) GTB PRN ×2 (03:59→20:20)
[2019-05-23] MEDS: DIPHENHYDRAMINE 25 MG CAP GTB PRN ×2 (03:59→20:20)
[2019-05-23] MEDS: LANSOPRAZOLE 30 MG CAP GTB SCH (05:27)
[2019-05-23] MEDS: INSULIN ASPART [NOVOLOG] 3 ML PEN SC SCH ×4 (05:29→22:06)
[2019-05-23] MEDS: predniSONE 20 MG TAB PO SCH (08:37)
[2019-05-23] MEDS: DESMOPRESSIN 0.1 MG TAB PO SCH ×3 (08:37→20:19)
[2019-05-23] MEDS: COLLAGENASE 5 GM (UD JAR) TOP SCH (08:37)
[2019-05-23] MEDS: GABAPENTIN 300 MG CAP GTB SCH ×2 (08:38→20:19)
[2019-05-23] MEDS: METOPROLOL 25 MG TAB PO SCH ×2 (08:38→20:20)
[2019-05-23] MEDS: ASCORBIC ACID 500 MG TAB GTB SCH (08:38)
[2019-05-23] MEDS: FLUCONAZOLE 100 MG TAB PO SCH (08:38)
[2019-05-23] MEDS: HYDROCORTISONE 1% 28.35 GM OINT TOP SCH ×3 (08:38→20:21)
[2019-05-23] MEDS: MULTIVITAMINS 30 ML CUP GTB SCH (08:38)
[2019-05-23] MEDS: POTASSIUM CHLORIDE 20 MEQ POWDER FOR ORAL SOLN GTB SCH ×2 (08:39→20:19)
[2019-05-23] MEDS: INSULIN GLARGINE [LANTus] (100 UNITS/ML) SYG SC SCH (08:46)
[2019-05-23] MEDS: IPRATROPIUM (HFA) 12.9 GM INHALER INH SCH ×2 (11:33→18:13)
[2019-05-23] MEDS: LEVALBUTEROL (HFA) 15 GM INHALER INH SCH ×2 (11:33→18:13)
[2019-05-23] MEDS: LORATADINE 10 MG TAB PO SCH (11:42)
[2019-05-24] VITALS (22 sets, daily range): BP systolic 106–140; BP diastolic 51–84; PULSE 69–101; RESP 16–20
[2019-05-24] MEDS: IPRATROPIUM (HFA) 12.9 GM INHALER INH SCH ×4 (01:12→23:08)
[2019-05-24] MEDS: LEVALBUTEROL (HFA) 15 GM INHALER INH SCH ×4 (01:12→23:08)
[2019-05-24] MEDS: INSULIN ASPART [NOVOLOG] 3 ML PEN SC SCH ×3 (06:00→17:28)
[2019-05-24] MEDS: LANSOPRAZOLE 30 MG CAP GTB SCH (06:56)
[2019-05-24] MEDS: ASCORBIC ACID 500 MG TAB GTB SCH (09:18)
[2019-05-24] MEDS: DESMOPRESSIN 0.1 MG TAB PO SCH ×3 (09:18→21:58)
[2019-05-24] MEDS: predniSONE 20 MG TAB PO SCH (09:18)
[2019-05-24] MEDS: MULTIVITAMINS 30 ML CUP GTB SCH (09:18)
[2019-05-24] MEDS: COLLAGENASE 5 GM (UD JAR) TOP SCH (09:18)
[2019-05-24] MEDS: FLUCONAZOLE 100 MG TAB PO SCH (09:19)
[2019-05-24] MEDS: GABAPENTIN 300 MG CAP GTB SCH ×2 (09:19→21:59)
[2019-05-24] MEDS: POTASSIUM CHLORIDE 20 MEQ POWDER FOR ORAL SOLN GTB SCH ×2 (09:19→21:59)
[2019-05-24] MEDS: LORATADINE 10 MG TAB PO SCH (09:19)
[2019-05-24] MEDS: HYDROCORTISONE 1% 28.35 GM OINT TOP SCH ×3 (09:20→21:59)
[2019-05-24] MEDS: METOPROLOL 25 MG TAB PO SCH ×2 (09:20→21:58)
[2019-05-24] MEDS: INSULIN GLARGINE [LANTus] (100 UNITS/ML) SYG SC SCH (09:36)
[2019-05-25] VITALS (23 sets, daily range): BP systolic 98–145; BP diastolic 51–83; PULSE 70–96; RESP 18–21
[2019-05-25] MEDS: INSULIN ASPART [NOVOLOG] 3 ML PEN SC SCH ×5 (06:00→23:37)
[2019-05-25] MEDS: LANSOPRAZOLE 30 MG CAP GTB SCH (06:03)
[2019-05-25] MEDS: LEVALBUTEROL (HFA) 15 GM INHALER INH SCH ×3 (07:15→15:21)
[2019-05-25] MEDS: IPRATROPIUM (HFA) 12.9 GM INHALER INH SCH ×3 (07:15→15:21)
[2019-05-25] MEDS: LORATADINE 10 MG TAB PO SCH (08:27)
[2019-05-25] MEDS: COLLAGENASE 5 GM (UD JAR) TOP SCH (08:27)
[2019-05-25] MEDS: FLUCONAZOLE 100 MG TAB PO SCH (08:27)
[2019-05-25] MEDS: LORAZEPAM 2 MG INJ IV PRN ×2 (08:27→16:32)
[2019-05-25] MEDS: MULTIVITAMINS 30 ML CUP GTB SCH (08:27)
[2019-05-25] MEDS: POTASSIUM CHLORIDE 20 MEQ POWDER FOR ORAL SOLN GTB SCH ×2 (08:27→21:02)
[2019-05-25] MEDS: GABAPENTIN 300 MG CAP GTB SCH ×2 (08:27→21:02)
[2019-05-25] MEDS: ASCORBIC ACID 500 MG TAB GTB SCH (08:27)
[2019-05-25] MEDS: METOPROLOL 25 MG TAB PO SCH ×2 (08:28→21:03)
[2019-05-25] MEDS: DESMOPRESSIN 0.1 MG TAB PO SCH ×3 (08:28→21:02)
[2019-05-25] MEDS: predniSONE 20 MG TAB PO SCH (08:28)
[2019-05-25] MEDS: HYDROCORTISONE 1% 28.35 GM OINT TOP SCH ×3 (08:28→21:02)
[2019-05-25] MEDS: INSULIN GLARGINE [LANTus] (100 UNITS/ML) SYG SC SCH (08:37)
[2019-05-26] VITALS (24 sets, daily range): BP systolic 86–134; BP diastolic 51–66; PULSE 70–98; RESP 18–20
[2019-05-26] MEDS: LANSOPRAZOLE 30 MG CAP GTB SCH (05:41)
[2019-05-26] MEDS: INSULIN ASPART [NOVOLOG] 3 ML PEN SC SCH ×3 (05:41→17:16)
[2019-05-26] MEDS: DESMOPRESSIN 0.1 MG TAB PO SCH ×3 (08:34→21:16)
[2019-05-26] MEDS: COLLAGENASE 5 GM (UD JAR) TOP SCH (08:34)
[2019-05-26] MEDS: LORATADINE 10 MG TAB PO SCH (08:35)
[2019-05-26] MEDS: ASCORBIC ACID 500 MG TAB GTB SCH (08:35)
[2019-05-26] MEDS: predniSONE 20 MG TAB PO SCH (08:35)
[2019-05-26] MEDS: FLUCONAZOLE 100 MG TAB PO SCH (08:35)
[2019-05-26] MEDS: METOPROLOL 25 MG TAB PO SCH ×2 (08:35→21:17)
[2019-05-26] MEDS: POTASSIUM CHLORIDE 20 MEQ POWDER FOR ORAL SOLN GTB SCH ×2 (08:35→21:17)
[2019-05-26] MEDS: GABAPENTIN 300 MG CAP GTB SCH ×2 (08:35→21:17)
[2019-05-26] MEDS: MULTIVITAMINS 30 ML CUP GTB SCH (08:35)
[2019-05-26] MEDS: HYDROCORTISONE 1% 28.35 GM OINT TOP SCH ×3 (08:36→21:17)
[2019-05-26] MEDS: LORAZEPAM 2 MG INJ IV PRN (08:36)
[2019-05-26] MEDS: IPRATROPIUM (HFA) 12.9 GM INHALER INH SCH ×3 (08:44→23:30)
[2019-05-26] MEDS: LEVALBUTEROL (HFA) 15 GM INHALER INH SCH ×3 (08:44→23:29)
[2019-05-26] MEDS: INSULIN GLARGINE [LANTus] (100 UNITS/ML) SYG SC SCH (08:47)
[2019-05-26] MEDS: DIPHENHYDRAMINE 25 MG CAP GTB PRN (21:16)
[2019-05-26] MEDS: LOPERAMIDE HCL 1 MG/5 ML LIQUID (10 ML UD CUP) GTB PRN (21:16)
[2019-05-27] VITALS (24 sets, daily range): BP systolic 98–121; BP diastolic 48–73; PULSE 58–98; RESP 18–20
[2019-05-27] MEDS: INSULIN ASPART [NOVOLOG] 3 ML PEN SC SCH ×5 (05:37→23:56)
[2019-05-27] MEDS: LANSOPRAZOLE 30 MG CAP GTB SCH (05:37)
[2019-05-27] MEDS: IPRATROPIUM (HFA) 12.9 GM INHALER INH SCH ×2 (08:20→16:45)
[2019-05-27] MEDS: LEVALBUTEROL (HFA) 15 GM INHALER INH SCH ×2 (08:20→16:45)
[2019-05-27] MEDS: DIPHENHYDRAMINE 25 MG CAP GTB PRN (08:41)
[2019-05-27] MEDS: FLUCONAZOLE 100 MG TAB PO SCH (08:41)
[2019-05-27] MEDS: POTASSIUM CHLORIDE 20 MEQ POWDER FOR ORAL SOLN GTB SCH ×2 (08:41→22:13)
[2019-05-27] MEDS: COLLAGENASE 5 GM (UD JAR) TOP SCH (08:41)
[2019-05-27] MEDS: MULTIVITAMINS 30 ML CUP GTB SCH (08:41)
[2019-05-27] MEDS: DESMOPRESSIN 0.1 MG TAB PO SCH ×3 (08:41→22:13)
[2019-05-27] MEDS: ASCORBIC ACID 500 MG TAB GTB SCH (08:41)
[2019-05-27] MEDS: predniSONE 20 MG TAB PO SCH (08:41)
[2019-05-27] MEDS: LORATADINE 10 MG TAB PO SCH (08:42)
[2019-05-27] MEDS: GABAPENTIN 300 MG CAP GTB SCH ×2 (08:42→22:13)
[2019-05-27] MEDS: HYDROCORTISONE 1% 28.35 GM OINT TOP SCH ×3 (08:42→22:16)
[2019-05-27] MEDS: METOPROLOL 25 MG TAB PO SCH ×2 (08:42→22:14)
[2019-05-27] MEDS: INSULIN GLARGINE [LANTus] (100 UNITS/ML) SYG SC SCH (08:45)
[2019-05-28] VITALS (21 sets, daily range): BP systolic 44–130; BP diastolic 21–96; PULSE 83–109; RESP 18–21
[2019-05-28] MEDS: INSULIN ASPART [NOVOLOG] 3 ML PEN SC SCH ×3 (06:00→18:00)
[2019-05-28] MEDS: LANSOPRAZOLE 30 MG CAP GTB SCH (06:24)
[2019-05-28] MEDS: HYDROCORTISONE 1% 28.35 GM OINT TOP SCH ×3 (09:00→21:27)
[2019-05-28] MEDS: DESMOPRESSIN 0.1 MG TAB PO SCH ×3 (09:15→21:25)
[2019-05-28] MEDS: FLUCONAZOLE 100 MG TAB PO SCH (09:15)
[2019-05-28] MEDS: LORATADINE 10 MG TAB PO SCH (09:15)
[2019-05-28] MEDS: GABAPENTIN 300 MG CAP GTB SCH ×2 (09:15→21:26)
[2019-05-28] MEDS: POTASSIUM CHLORIDE 20 MEQ POWDER FOR ORAL SOLN GTB SCH ×2 (09:15→21:25)
[2019-05-28] MEDS: MULTIVITAMINS 30 ML CUP GTB SCH (09:15)
[2019-05-28] MEDS: COLLAGENASE 5 GM (UD JAR) TOP SCH (09:15)
[2019-05-28] MEDS: ASCORBIC ACID 500 MG TAB GTB SCH (09:15)
[2019-05-28] MEDS: METOPROLOL 25 MG TAB PO SCH ×2 (09:16→21:26)
[2019-05-28] MEDS: INSULIN GLARGINE [LANTus] (100 UNITS/ML) SYG SC SCH (12:35)
[2019-05-28] MEDS: LEVALBUTEROL (HFA) 15 GM INHALER INH SCH ×3 (15:50→16:00)
[2019-05-28] MEDS: IPRATROPIUM (HFA) 12.9 GM INHALER INH SCH ×3 (15:50→16:00)
[2019-05-28] MEDS ORDERED: QUETIAPINE 25 MG TAB NGT SCH (21:00)
[2019-05-28] MEDS: LOPERAMIDE HCL 1 MG/5 ML LIQUID (10 ML UD CUP) GTB PRN (21:24)
[2019-05-28] MEDS: DIPHENHYDRAMINE 25 MG CAP GTB PRN (21:26)
[2019-05-29] VITALS (89 sets, daily range): BP systolic 34–191; BP diastolic 25–96; PULSE 87–139; RESP 16–25
[2019-05-29] MEDS ORDERED: SOD CHLORIDE 0.9% 1,000 ML IV ONE ×2 (00:09→08:30)
[2019-05-29] MEDS ORDERED: NORepinephrine 8MG/250 ML (PMX 250 ML ONE (00:10)
[2019-05-29] MEDS ORDERED: LIDOCAINE 1% (MDV) 20 ML INJ INJ ONE (00:30)
[2019-05-29] MEDS: LEVALBUTEROL (HFA) 15 GM INHALER INH SCH ×3 (01:32→17:00)
[2019-05-29] MEDS: IPRATROPIUM (HFA) 12.9 GM INHALER INH SCH ×3 (01:32→17:00)
[2019-05-29] MEDS: INSULIN ASPART [NOVOLOG] 3 ML PEN SC SCH ×5 (05:15→23:31)
[2019-05-29] MEDS: LANSOPRAZOLE 30 MG CAP GTB SCH (05:19)
[2019-05-29] MEDS: NORepinephrine 8MG/250 ML (PMX 250 ML IV SCH ×3 (07:32→20:57)
[2019-05-29] MEDS ORDERED: PIPER-TAZO 3.375 GM IV (PMX) 100 ML IVPB SCH (08:30)
[2019-05-29] MEDS: COLLAGENASE 5 GM (UD JAR) TOP SCH (08:37)
[2019-05-29] MEDS: MULTIVITAMINS 30 ML CUP GTB SCH (08:37)
[2019-05-29] MEDS: LORATADINE 10 MG TAB PO SCH (08:37)
[2019-05-29] MEDS: DESMOPRESSIN 0.1 MG TAB PO SCH ×3 (08:38→21:03)
[2019-05-29] MEDS: METOPROLOL 25 MG TAB PO SCH ×2 (08:38→21:03)
[2019-05-29] MEDS: ASCORBIC ACID 500 MG TAB GTB SCH (08:38)
[2019-05-29] MEDS: GABAPENTIN 300 MG CAP GTB SCH ×2 (08:38→21:02)
[2019-05-29] MEDS: FLUCONAZOLE 100 MG TAB PO SCH (08:38)
[2019-05-29] MEDS: POTASSIUM CHLORIDE 20 MEQ POWDER FOR ORAL SOLN GTB SCH (08:39)
[2019-05-29] MEDS: INSULIN GLARGINE [LANTus] (100 UNITS/ML) SYG SC SCH (08:47)
[2019-05-29] MEDS: HYDROCORTISONE 1% 28.35 GM OINT TOP SCH ×3 (08:47→21:02)
[2019-05-29] MEDS ORDERED: NA POLYST SULFON 15 GM/60 ML BTL GTB ONE (09:00)
[2019-05-29] MEDS ORDERED: LIDOCAINE 1% (MPF) 5 ML VIAL SC ONE (10:30)
[2019-05-29] MEDS ORDERED: PHENYLephrine 20MG IN 250 ML 250 ML ONE (11:11)
[2019-05-29] MEDS: PHENYLephrine 80 MG in DEXTROSE 5% 242 ML IV SCH (11:36)
[2019-05-29] MEDS ORDERED: VANCOMYCIN IV PER PHARMACY XX SCH (12:00)
[2019-05-29] MEDS ORDERED: VANCOMYCIN 1.25 GM/NS 250 ML 250 ML IVPB SCH (13:00)
[2019-05-29] MEDS: ACETAMINOPHEN 650MG/20.3ML CUP GTB PRN ×2 (13:16→23:15)
[2019-05-29] MEDS ORDERED: PHENTOLAMINE 5 MG INJ SC ONE (13:30)
[2019-05-29] MEDS ORDERED: VANCOMYCIN 1.5 GM/NS 250 ML 250 ML IVPB SCH (14:00)
[2019-05-29] MEDS: DIPHENHYDRAMINE 25 MG CAP GTB PRN ×2 (17:23→23:15)
[2019-05-29] MEDS: MEROPENEM 1 GM/50ML(PMX) 50 ML IVPB SCH (21:02)
[2019-05-30] VITALS (101 sets, daily range): BP systolic 70–143; BP diastolic 32–108; PULSE 82–121; RESP 14–33
[2019-05-30] MEDS: IPRATROPIUM (HFA) 12.9 GM INHALER INH SCH ×3 (00:21→17:39)
[2019-05-30] MEDS: LEVALBUTEROL (HFA) 15 GM INHALER INH SCH ×3 (00:21→17:38)
[2019-05-30] MEDS: LORAZEPAM 2 MG INJ IV PRN ×2 (04:41→08:57)
[2019-05-30] MEDS: INSULIN ASPART [NOVOLOG] 3 ML PEN SC SCH ×4 (05:29→23:57)
[2019-05-30] MEDS: LANSOPRAZOLE 30 MG CAP GTB SCH (05:30)
[2019-05-30] MEDS: GABAPENTIN 300 MG CAP GTB SCH ×2 (08:11→20:28)
[2019-05-30] MEDS: ASCORBIC ACID 500 MG TAB GTB SCH (08:11)
[2019-05-30] MEDS: MULTIVITAMINS 30 ML CUP GTB SCH (08:12)
[2019-05-30] MEDS: LORATADINE 10 MG TAB PO SCH (08:12)
[2019-05-30] MEDS: DESMOPRESSIN 0.1 MG TAB PO SCH ×3 (08:12→20:28)
[2019-05-30] MEDS: HYDROCORTISONE 1% 28.35 GM OINT TOP SCH ×3 (08:13→20:29)
[2019-05-30] MEDS: METOPROLOL 25 MG TAB PO SCH ×2 (08:17→20:29)
[2019-05-30] MEDS: MEROPENEM 1 GM/50ML(PMX) 50 ML IVPB SCH ×2 (08:22→20:28)
[2019-05-30] MEDS: COLLAGENASE 5 GM (UD JAR) TOP SCH (08:22)
[2019-05-30] MEDS: INSULIN GLARGINE [LANTus] (100 UNITS/ML) SYG SC SCH (08:25)
[2019-05-30] MEDS: QUETIAPINE 25 MG TAB GTB SCH ×2 (08:57→20:28)
[2019-05-30] MEDS: ACETAMINOPHEN 650MG/20.3ML CUP GTB PRN ×2 (09:44→20:39)
[2019-05-30] MEDS: NORepinephrine 8MG/250 ML (PMX 250 ML IV SCH (12:22)
[2019-05-30] MEDS: VANCOMYCIN 1 GM (PMX) 250 ML IVPB SCH (13:31)
[2019-05-31] VITALS (98 sets, daily range): BP systolic 64–130; BP diastolic 33–116; PULSE 91–133; RESP 17–32
[2019-05-31] MEDS: NORepinephrine 8MG/250 ML (PMX 250 ML IV SCH ×2 (00:03→20:36)
[2019-05-31] MEDS: LEVALBUTEROL (HFA) 15 GM INHALER INH SCH ×3 (00:24→15:01)
[2019-05-31] MEDS: IPRATROPIUM (HFA) 12.9 GM INHALER INH SCH ×3 (00:24→15:01)
[2019-05-31] MEDS: DIPHENHYDRAMINE 25 MG CAP GTB PRN ×3 (03:50→20:36)
[2019-05-31] MEDS: ACETAMINOPHEN 650MG/20.3ML CUP GTB PRN (03:51)
[2019-05-31] MEDS: LANSOPRAZOLE 30 MG CAP GTB SCH (05:47)
[2019-05-31] MEDS: INSULIN ASPART [NOVOLOG] 3 ML PEN SC SCH ×3 (05:52→18:00)
[2019-05-31] MEDS: ASCORBIC ACID 500 MG TAB GTB SCH (08:41)
[2019-05-31] MEDS: QUETIAPINE 25 MG TAB GTB SCH ×2 (08:41→20:39)
[2019-05-31] MEDS: DESMOPRESSIN 0.1 MG TAB PO SCH ×3 (08:41→20:36)
[2019-05-31] MEDS: LORATADINE 10 MG TAB PO SCH (08:41)
[2019-05-31] MEDS: METOPROLOL 25 MG TAB PO SCH ×2 (08:42→20:36)
[2019-05-31] MEDS: MULTIVITAMINS 30 ML CUP GTB SCH (08:43)
[2019-05-31] MEDS: COLLAGENASE 5 GM (UD JAR) TOP SCH (08:43)
[2019-05-31] MEDS: HYDROCORTISONE 1% 28.35 GM OINT TOP SCH ×3 (08:44→20:37)
[2019-05-31] MEDS: GABAPENTIN 300 MG CAP GTB SCH ×2 (08:44→20:36)
[2019-05-31] MEDS: INSULIN GLARGINE [LANTus] (100 UNITS/ML) SYG SC SCH (09:05)
[2019-05-31] MEDS: MEROPENEM 1 GM/50ML(PMX) 50 ML IVPB SCH ×2 (10:00→20:36)
[2019-05-31] MEDS ORDERED: POTASSIUM CHLORIDE 50 ML IVPB ONE (10:30)
[2019-05-31] MEDS ORDERED: POTASSIUM CHLORIDE 20 MEQ POWDER FOR ORAL SOLN GTB ONE (10:30)
[2019-05-31] MEDS: VANCOMYCIN 1 GM (PMX) 250 ML IVPB SCH (14:22)
[2019-06-01] VITALS (88 sets, daily range): BP systolic 68–136; BP diastolic 37–86; PULSE 93–126; RESP 15–27
[2019-06-01] MEDS: IPRATROPIUM (HFA) 12.9 GM INHALER INH SCH ×3 (00:56→17:08)
[2019-06-01] MEDS: LEVALBUTEROL (HFA) 15 GM INHALER INH SCH ×3 (00:56→17:08)
[2019-06-01] MEDS: INSULIN ASPART [NOVOLOG] 3 ML PEN SC SCH ×4 (05:55→17:22)
[2019-06-01] MEDS: LANSOPRAZOLE 30 MG CAP GTB SCH (05:55)
[2019-06-01] MEDS: ACETAMINOPHEN 650MG/20.3ML CUP GTB PRN ×2 (07:01→21:32)
[2019-06-01] MEDS: MEROPENEM 1 GM/50ML(PMX) 50 ML IVPB SCH (08:21)
[2019-06-01] MEDS: COLLAGENASE 5 GM (UD JAR) TOP SCH (08:22)
[2019-06-01] MEDS: GABAPENTIN 300 MG CAP GTB SCH ×2 (08:22→21:00)
[2019-06-01] MEDS: DESMOPRESSIN 0.1 MG TAB PO SCH ×3 (08:22→21:00)
[2019-06-01] MEDS: MULTIVITAMINS 30 ML CUP GTB SCH (08:22)
[2019-06-01] MEDS: METOPROLOL 25 MG TAB PO SCH ×2 (08:23→21:00)
[2019-06-01] MEDS: QUETIAPINE 25 MG TAB GTB SCH ×2 (08:24→21:00)
[2019-06-01] MEDS: LORATADINE 10 MG TAB PO SCH (08:24)
[2019-06-01] MEDS: ASCORBIC ACID 500 MG TAB GTB SCH (08:24)
[2019-06-01] MEDS: INSULIN GLARGINE [LANTus] (100 UNITS/ML) SYG SC SCH (08:35)
[2019-06-01] MEDS: HYDROCORTISONE 1% 28.35 GM OINT TOP SCH ×3 (09:00→21:01)
[2019-06-01] MEDS ORDERED: LIDOCAINE 1% (MPF) 5 ML VIAL SC ONE (10:30)
[2019-06-01] MEDS: MIDODRINE 5 MG TAB GTB SCH ×2 (12:50→16:43)
[2019-06-01] MEDS ORDERED: AMIKACIN IV PER PHARMACY XX SCH (14:00)
[2019-06-01] MEDS ORDERED: AMIKACIN IVPB SCH ×2 (14:30→16:00)
[2019-06-01] MEDS ORDERED: SOD CHLORIDE 0.9% IVPB SCH ×2 (14:30→16:00)
[2019-06-01] MEDS: VANCOMYCIN 750 MG (PMX) 250 ML IVPB SCH (15:44)
[2019-06-01] MEDS ORDERED: AMIKACIN 500 MG in SOD CHLORIDE 0.9% 100 ML IVPB SCH (16:00)
[2019-06-01] MEDS: NORepinephrine 8MG/250 ML (PMX 250 ML IV SCH (21:08)
[2019-06-02] VITALS (97 sets, daily range): BP systolic 78–161; BP diastolic 31–132; PULSE 80–115; RESP 13–26
[2019-06-02] MEDS: LANSOPRAZOLE 30 MG CAP GTB SCH (05:22)
[2019-06-02] MEDS: DIPHENHYDRAMINE 25 MG CAP GTB PRN (05:22)
[2019-06-02] MEDS: INSULIN ASPART [NOVOLOG] 3 ML PEN SC SCH ×4 (05:36→18:00)
[2019-06-02] MEDS: LEVALBUTEROL (HFA) 15 GM INHALER INH SCH ×4 (07:54→23:52)
[2019-06-02] MEDS: IPRATROPIUM (HFA) 12.9 GM INHALER INH SCH ×4 (07:54→23:52)
[2019-06-02] MEDS: COLLAGENASE 5 GM (UD JAR) TOP SCH (08:25)
[2019-06-02] MEDS: MIDODRINE 5 MG TAB GTB SCH ×3 (08:26→18:31)
[2019-06-02] MEDS: GABAPENTIN 300 MG CAP GTB SCH ×2 (08:26→20:17)
[2019-06-02] MEDS: LORATADINE 10 MG TAB PO SCH (08:26)
[2019-06-02] MEDS: METOPROLOL 25 MG TAB PO SCH (08:26)
[2019-06-02] MEDS: DESMOPRESSIN 0.1 MG TAB PO SCH ×3 (08:26→20:17)
[2019-06-02] MEDS: QUETIAPINE 25 MG TAB GTB SCH ×2 (08:26→20:17)
[2019-06-02] MEDS: ASCORBIC ACID 500 MG TAB GTB SCH (08:26)
[2019-06-02] MEDS: MULTIVITAMINS 30 ML CUP GTB SCH (08:26)
[2019-06-02] MEDS: HYDROCORTISONE 1% 28.35 GM OINT TOP SCH ×3 (08:58→20:17)
[2019-06-02] MEDS: INSULIN GLARGINE [LANTus] (100 UNITS/ML) SYG SC SCH (09:00)
[2019-06-02] MEDS: ACETAMINOPHEN 650MG/20.3ML CUP GTB PRN (09:23)
[2019-06-02] MEDS: LORAZEPAM 2 MG INJ IV PRN (11:29)
[2019-06-02] MEDS: morphine 2 MG INJ IV PRN (11:32)
[2019-06-02] MEDS: VANCOMYCIN 750 MG (PMX) 250 ML IVPB SCH (14:36)
[2019-06-02] MEDS: NORepinephrine 8MG/250 ML (PMX 250 ML IV SCH (23:27)
[2019-06-03] VITALS (94 sets, daily range): BP systolic 83–133; BP diastolic 28–97; PULSE 77–113; RESP 14–27
[2019-06-03] MEDS: AMIKACIN IVPB SCH (04:08)
[2019-06-03] MEDS: SOD CHLORIDE 0.9% IVPB SCH (04:08)
[2019-06-03] MEDS: INSULIN ASPART [NOVOLOG] 3 ML PEN SC SCH ×4 (05:20→17:28)
[2019-06-03] MEDS: LANSOPRAZOLE 30 MG CAP GTB SCH (05:21)
[2019-06-03] MEDS: IPRATROPIUM (HFA) 12.9 GM INHALER INH SCH ×2 (07:06→15:20)
[2019-06-03] MEDS: LEVALBUTEROL (HFA) 15 GM INHALER INH SCH ×2 (07:06→15:20)
[2019-06-03] MEDS: LORAZEPAM 2 MG INJ IV PRN ×2 (07:49→15:13)
[2019-06-03] MEDS: MULTIVITAMINS 30 ML CUP GTB SCH (08:24)
[2019-06-03] MEDS: QUETIAPINE 25 MG TAB GTB SCH ×2 (08:24→20:37)
[2019-06-03] MEDS: DESMOPRESSIN 0.1 MG TAB PO SCH ×3 (08:24→20:36)
[2019-06-03] MEDS: INSULIN GLARGINE [LANTus] (100 UNITS/ML) SYG SC SCH (08:25)
[2019-06-03] MEDS: MIDODRINE 5 MG TAB GTB SCH (08:26)
[2019-06-03] MEDS: COLLAGENASE 5 GM (UD JAR) TOP SCH (08:26)
[2019-06-03] MEDS: ASCORBIC ACID 500 MG TAB GTB SCH (08:26)
[2019-06-03] MEDS: LORATADINE 10 MG TAB PO SCH (08:26)
[2019-06-03] MEDS: GABAPENTIN 300 MG CAP GTB SCH ×2 (08:26→20:37)
[2019-06-03] MEDS: HYDROCORTISONE 1% 28.35 GM OINT TOP SCH ×3 (08:27→20:37)
[2019-06-03] MEDS ORDERED: POTASSIUM CHLORIDE 100 ML IVPB ONE (11:30)
[2019-06-03] MEDS: NORepinephrine 8MG/250 ML (PMX 250 ML IV SCH (13:02)
[2019-06-03] MEDS: MIDODRINE 10 MG TABLET PO SCH ×2 (13:25→16:48)
[2019-06-03] MEDS: ACETAMINOPHEN 650MG/20.3ML CUP GTB PRN (13:56)
[2019-06-03] MEDS: VANCOMYCIN 750 MG (PMX) 250 ML IVPB SCH (15:13)
[2019-06-03] MEDS: morphine 2 MG INJ IV PRN (15:13)
[2019-06-04] VITALS (77 sets, daily range): BP systolic 70–137; BP diastolic 29–96; PULSE 82–125; RESP 14–32
[2019-06-04] MEDS: SOD CHLORIDE 0.9% 1,000 ML IV SCH ×3 (01:59→21:04)
[2019-06-04] MEDS: PHENYLephrine 80 MG in DEXTROSE 5% 242 ML IV SCH ×4 (02:51→19:13)
[2019-06-04] MEDS: ACETAMINOPHEN 650MG/20.3ML CUP GTB PRN ×2 (03:24→14:04)
[2019-06-04] MEDS: INSULIN ASPART [NOVOLOG] 3 ML PEN SC SCH ×4 (06:00→22:00)
[2019-06-04] MEDS: LANSOPRAZOLE 30 MG CAP GTB SCH (06:12)
[2019-06-04] MEDS: IPRATROPIUM (HFA) 12.9 GM INHALER INH SCH ×4 (07:28→23:08)
[2019-06-04] MEDS: LEVALBUTEROL (HFA) 15 GM INHALER INH SCH ×4 (07:28→23:08)
[2019-06-04] MEDS: LORAZEPAM 2 MG INJ IV PRN ×2 (07:47→14:04)
[2019-06-04] MEDS: DIPHENHYDRAMINE 50 MG INJ IV PRN ×2 (07:47→17:54)
[2019-06-04] MEDS: INSULIN GLARGINE [LANTus] (100 UNITS/ML) SYG SC SCH (07:55)
[2019-06-04] MEDS: MIDODRINE 10 MG TABLET PO SCH ×3 (08:18→17:17)
[2019-06-04] MEDS: DESMOPRESSIN 0.1 MG TAB PO SCH ×3 (08:18→21:03)
[2019-06-04] MEDS: GABAPENTIN 300 MG CAP GTB SCH ×2 (08:18→21:06)
[2019-06-04] MEDS: QUETIAPINE 25 MG TAB GTB SCH ×2 (08:18→21:03)
[2019-06-04] MEDS: HYDROCORTISONE 1% 28.35 GM OINT TOP SCH ×3 (08:18→21:04)
[2019-06-04] MEDS: MULTIVITAMINS 30 ML CUP GTB SCH (08:18)
[2019-06-04] MEDS: ASCORBIC ACID 500 MG TAB GTB SCH (08:18)
[2019-06-04] MEDS: LORATADINE 10 MG TAB PO SCH (08:18)
[2019-06-04] MEDS: morphine 2 MG INJ IV PRN (12:33)
[2019-06-04] MEDS: metroNIDAZOLE 500 MG TAB PO SCH ×2 (13:54→21:06)
[2019-06-04] MEDS ORDERED: CASPOFUNGIN 70 MG in SOD CHLORIDE 0.9% 250 ML IVPB ONE (14:00)
[2019-06-04] MEDS: VANCOMYCIN 750 MG (PMX) 250 ML IVPB SCH (15:58)
[2019-06-04] MEDS: AMIKACIN IVPB SCH (17:17)
[2019-06-04] MEDS: SOD CHLORIDE 0.9% IVPB SCH (17:17)
[2019-06-05] VITALS (97 sets, daily range): BP systolic 48–153; BP diastolic 29–120; PULSE 83–103; RESP 11–26
[2019-06-05] MEDS: PHENYLephrine 80 MG in DEXTROSE 5% 242 ML IV SCH ×4 (01:02→18:48)
[2019-06-05] MEDS: ACETAMINOPHEN 650MG/20.3ML CUP GTB PRN ×2 (02:02→08:09)
[2019-06-05] MEDS: SOD CHLORIDE 0.9% 1,000 ML IV SCH ×3 (02:08→23:58)
[2019-06-05] MEDS: INSULIN ASPART [NOVOLOG] 3 ML PEN SC SCH ×3 (06:00→21:32)
[2019-06-05] MEDS: LANSOPRAZOLE 30 MG CAP GTB SCH (06:30)
[2019-06-05] MEDS: metroNIDAZOLE 500 MG TAB PO SCH ×3 (06:30→21:33)
[2019-06-05] MEDS: LEVALBUTEROL (HFA) 15 GM INHALER INH SCH ×2 (07:38→16:59)
[2019-06-05] MEDS: IPRATROPIUM (HFA) 12.9 GM INHALER INH SCH ×2 (07:38→16:59)
[2019-06-05] MEDS: ASCORBIC ACID 500 MG TAB GTB SCH (08:08)
[2019-06-05] MEDS: DESMOPRESSIN 0.1 MG TAB PO SCH ×3 (08:08→20:16)
[2019-06-05] MEDS: QUETIAPINE 25 MG TAB GTB SCH ×2 (08:08→20:16)
[2019-06-05] MEDS: MIDODRINE 10 MG TABLET PO SCH ×3 (08:08→17:21)
[2019-06-05] MEDS: GABAPENTIN 300 MG CAP GTB SCH ×2 (08:08→20:16)
[2019-06-05] MEDS: LORATADINE 10 MG TAB PO SCH (08:08)
[2019-06-05] MEDS: MULTIVITAMINS 30 ML CUP GTB SCH (08:09)
[2019-06-05] MEDS: HYDROCORTISONE 1% 28.35 GM OINT TOP SCH ×3 (08:10→20:16)
[2019-06-05] MEDS: INSULIN GLARGINE [LANTus] (100 UNITS/ML) SYG SC SCH (08:17)
[2019-06-05] MEDS: HYDROCORTISONE 100 MG INJ IV SCH ×3 (09:36→21:32)
[2019-06-05] MEDS: CASPOFUNGIN 50 MG in SOD CHLORIDE 0.9% 250 ML IVPB SCH (13:11)
[2019-06-05] MEDS ORDERED: VANCOMYCIN 0.85 GM in SOD CHLORIDE 0.9% 250 ML IVPB SCH (16:00)
[2019-06-05] MEDS: DIPHENHYDRAMINE 50 MG INJ IV PRN (20:16)
[2019-06-06] VITALS (88 sets, daily range): BP systolic 98–170; BP diastolic 45–128; PULSE 97–117; RESP 14–33
[2019-06-06] MEDS: IPRATROPIUM (HFA) 12.9 GM INHALER INH SCH ×5 (01:30→23:28)
[2019-06-06] MEDS: LEVALBUTEROL (HFA) 15 GM INHALER INH SCH ×5 (01:30→23:28)
[2019-06-06] MEDS: SOD CHLORIDE 0.9% IVPB SCH (05:02)
[2019-06-06] MEDS: HYDROCORTISONE 100 MG INJ IV SCH ×3 (05:02→21:10)
[2019-06-06] MEDS: AMIKACIN IVPB SCH (05:02)
[2019-06-06] MEDS: metroNIDAZOLE 500 MG TAB PO SCH ×3 (05:02→21:10)
[2019-06-06] MEDS: LANSOPRAZOLE 30 MG CAP GTB SCH (05:03)
[2019-06-06] MEDS: DIPHENHYDRAMINE 50 MG INJ IV PRN ×2 (05:10→18:36)
[2019-06-06] MEDS: INSULIN ASPART [NOVOLOG] 3 ML PEN SC SCH ×3 (06:00→23:38)
[2019-06-06] MEDS ORDERED: POTASSIUM CHLORIDE 20 MEQ POWDER FOR ORAL SOLN PEG ONE ×2 (06:30→07:30)
[2019-06-06] MEDS: DESMOPRESSIN 0.1 MG TAB PO SCH (08:30)
[2019-06-06] MEDS: MULTIVITAMINS 30 ML CUP GTB SCH (08:30)
[2019-06-06] MEDS: ASCORBIC ACID 500 MG TAB GTB SCH (08:30)
[2019-06-06] MEDS: QUETIAPINE 25 MG TAB GTB SCH ×2 (08:30→20:47)
[2019-06-06] MEDS: MIDODRINE 10 MG TABLET PO SCH ×3 (08:30→17:00)
[2019-06-06] MEDS: LORATADINE 10 MG TAB PO SCH (08:30)
[2019-06-06] MEDS: GABAPENTIN 300 MG CAP GTB SCH ×2 (08:30→20:47)
[2019-06-06] MEDS: HYDROCORTISONE 1% 28.35 GM OINT TOP SCH ×3 (08:31→20:49)
[2019-06-06] MEDS: INSULIN GLARGINE [LANTus] (100 UNITS/ML) SYG SC SCH (08:44)
[2019-06-06] MEDS: CASPOFUNGIN 50 MG in SOD CHLORIDE 0.9% 250 ML IVPB SCH (13:46)
[2019-06-06] MEDS: SOD CHLORIDE 0.9% 1,000 ML IV SCH ×2 (13:46→23:48)
[2019-06-06] MEDS: VANCOMYCIN HCL 250 MG/5ML POSYG PO SCH ×2 (18:36→23:41)
[2019-06-06] MEDS: DESMOPRESSIN 4 MCG INJ SC SCH (20:48)
[2019-06-07] VITALS (26 sets, daily range): BP systolic 137–179; BP diastolic 72–134; PULSE 86–121; RESP 14–27
[2019-06-07] MEDS: SOD CHLORIDE 0.9% 1,000 ML IV SCH (01:48)
[2019-06-07] MEDS: INSULIN ASPART [NOVOLOG] 3 ML PEN SC SCH ×3 (06:00→22:00)
[2019-06-07] MEDS: LANSOPRAZOLE 30 MG CAP GTB SCH (06:19)
[2019-06-07] MEDS: VANCOMYCIN HCL 250 MG/5ML POSYG PO SCH ×3 (06:19→17:10)
[2019-06-07] MEDS: HYDROCORTISONE 100 MG INJ IV SCH ×4 (06:19→22:02)
[2019-06-07] MEDS: metroNIDAZOLE 500 MG TAB PO SCH ×3 (06:19→22:03)
[2019-06-07] MEDS: LEVALBUTEROL (HFA) 15 GM INHALER INH SCH ×3 (07:05→23:28)
[2019-06-07] MEDS: IPRATROPIUM (HFA) 12.9 GM INHALER INH SCH ×3 (07:05→23:28)
[2019-06-07] MEDS: LORAZEPAM 2 MG INJ IV PRN (08:08)
[2019-06-07] MEDS: LORATADINE 10 MG TAB PO SCH (08:21)
[2019-06-07] MEDS: ASCORBIC ACID 500 MG TAB GTB SCH (08:21)
[2019-06-07] MEDS: MULTIVITAMINS 30 ML CUP GTB SCH (08:21)
[2019-06-07] MEDS: GABAPENTIN 300 MG CAP GTB SCH ×2 (08:21→20:43)
[2019-06-07] MEDS: QUETIAPINE 25 MG TAB GTB SCH ×2 (08:21→20:57)
[2019-06-07] MEDS: INSULIN GLARGINE [LANTus] (100 UNITS/ML) SYG SC SCH (08:23)
[2019-06-07] MEDS: DIPHENHYDRAMINE 50 MG INJ IV PRN ×2 (08:26→17:49)
[2019-06-07] MEDS: MIDODRINE 10 MG TABLET PO SCH ×3 (09:00→17:00)
[2019-06-07] MEDS ORDERED: POTASSIUM CHLORIDE 20 MEQ POWDER FOR ORAL SOLN GTB ONE (09:00)
[2019-06-07] MEDS: DESMOPRESSIN 4 MCG INJ SC SCH ×2 (09:31→23:53)
[2019-06-07] MEDS: HYDROCORTISONE 1% 28.35 GM OINT TOP SCH ×3 (09:31→20:57)
[2019-06-07] MEDS: CASPOFUNGIN 50 MG in SOD CHLORIDE 0.9% 250 ML IVPB SCH (14:26)
[2019-06-07] MEDS: hydrALAzine 20 MG INJ IV PRN (17:10)
[2019-06-07] MEDS: SOD CHLORIDE 0.9% IVPB SCH (17:11)
[2019-06-07] MEDS: AMIKACIN IVPB SCH (17:11)
[2019-06-08] VITALS (20 sets, daily range): BP systolic 127–195; BP diastolic 70–90; PULSE 85–102; RESP 14–26
[2019-06-08] MEDS: LANSOPRAZOLE 30 MG CAP GTB SCH (06:08)
[2019-06-08] MEDS: VANCOMYCIN HCL 250 MG/5ML POSYG PO SCH ×4 (06:08→17:22)
[2019-06-08] MEDS: HYDROCORTISONE 100 MG INJ IV SCH ×3 (06:08→22:07)
[2019-06-08] MEDS: metroNIDAZOLE 500 MG TAB PO SCH ×3 (06:08→22:07)
[2019-06-08] MEDS: INSULIN ASPART [NOVOLOG] 3 ML PEN SC SCH ×3 (06:59→22:00)
[2019-06-08] MEDS: DIPHENHYDRAMINE 50 MG INJ IV PRN (08:12)
[2019-06-08] MEDS: LEVALBUTEROL (HFA) 15 GM INHALER INH SCH ×3 (08:47→23:57)
[2019-06-08] MEDS: IPRATROPIUM (HFA) 12.9 GM INHALER INH SCH ×3 (08:47→23:57)
[2019-06-08] MEDS: MIDODRINE 10 MG TABLET PO SCH ×3 (09:00→16:27)
[2019-06-08] MEDS: GABAPENTIN 300 MG CAP GTB SCH ×2 (09:37→22:07)
[2019-06-08] MEDS: QUETIAPINE 25 MG TAB GTB SCH ×2 (09:37→22:07)
[2019-06-08] MEDS: LORATADINE 10 MG TAB PO SCH (09:37)
[2019-06-08] MEDS: MULTIVITAMINS 30 ML CUP GTB SCH (09:37)
[2019-06-08] MEDS: ASCORBIC ACID 500 MG TAB GTB SCH (09:38)
[2019-06-08] MEDS: HYDROCORTISONE 1% 28.35 GM OINT TOP SCH ×3 (09:38→22:08)
[2019-06-08] MEDS: INSULIN GLARGINE [LANTus] (100 UNITS/ML) SYG SC SCH (10:07)
[2019-06-08] MEDS: DESMOPRESSIN 4 MCG INJ SC SCH ×2 (11:07→21:00)
[2019-06-08] MEDS: LORAZEPAM 2 MG INJ IV PRN (12:36)
[2019-06-08] MEDS: CASPOFUNGIN 50 MG in SOD CHLORIDE 0.9% 250 ML IVPB SCH (13:51)
[2019-06-08] MEDS: METOPROLOL 25 MG TAB PO SCH (22:07)
[2019-06-09] VITALS (23 sets, daily range): BP systolic 120–173; BP diastolic 61–80; PULSE 70–114; RESP 12–26
[2019-06-09] MEDS: VANCOMYCIN HCL 250 MG/5ML POSYG PO SCH ×4 (00:48→17:22)
[2019-06-09] MEDS: SOD CHLORIDE 0.9% IVPB SCH (05:00)
[2019-06-09] MEDS: AMIKACIN IVPB SCH (05:00)
[2019-06-09] MEDS: INSULIN ASPART [NOVOLOG] 3 ML PEN SC SCH ×3 (06:00→21:28)
[2019-06-09] MEDS: LANSOPRAZOLE 30 MG CAP GTB SCH (06:00)
[2019-06-09] MEDS: metroNIDAZOLE 500 MG TAB PO SCH ×3 (06:00→21:10)
[2019-06-09] MEDS: HYDROCORTISONE 100 MG INJ IV SCH ×3 (06:00→21:23)
[2019-06-09] MEDS: DIPHENHYDRAMINE 50 MG INJ IV PRN ×2 (06:12→21:23)
[2019-06-09] MEDS: INSULIN GLARGINE [LANTus] (100 UNITS/ML) SYG SC SCH (08:10)
[2019-06-09] MEDS: LEVALBUTEROL (HFA) 15 GM INHALER INH SCH ×3 (08:45→23:34)
[2019-06-09] MEDS: IPRATROPIUM (HFA) 12.9 GM INHALER INH SCH ×3 (08:45→23:34)
[2019-06-09] MEDS: MIDODRINE 10 MG TABLET PO SCH ×3 (09:00→17:00)
[2019-06-09] MEDS: ASCORBIC ACID 500 MG TAB GTB SCH (09:34)
[2019-06-09] MEDS: LORATADINE 10 MG TAB PO SCH (09:34)
[2019-06-09] MEDS: GABAPENTIN 300 MG CAP GTB SCH ×2 (09:34→21:11)
[2019-06-09] MEDS: MULTIVITAMINS 30 ML CUP GTB SCH (09:34)
[2019-06-09] MEDS: METOPROLOL 25 MG TAB PO SCH ×2 (09:35→21:11)
[2019-06-09] MEDS: HYDROCORTISONE 1% 28.35 GM OINT TOP SCH ×3 (09:36→21:08)
[2019-06-09] MEDS: QUETIAPINE 25 MG TAB GTB SCH ×2 (09:41→21:10)
[2019-06-09] MEDS: DESMOPRESSIN 4 MCG INJ SC SCH ×2 (09:41→21:19)
[2019-06-09] MEDS: CASPOFUNGIN 50 MG in SOD CHLORIDE 0.9% 250 ML IVPB SCH (13:47)
[2019-06-09] MEDS: hydrOXYzine HCL 10 MG TAB GTB PRN (13:47)
[2019-06-09] MEDS: LORAZEPAM 2 MG INJ IV PRN (15:59)
[2019-06-10] VITALS (26 sets, daily range): BP systolic 130–163; BP diastolic 61–83; PULSE 64–80; RESP 13–23
[2019-06-10] MEDS: HYDROCORTISONE 100 MG INJ IV SCH ×3 (05:03→21:52)
[2019-06-10] MEDS: VANCOMYCIN HCL 250 MG/5ML POSYG PO SCH ×5 (05:04→23:20)
[2019-06-10] MEDS: LANSOPRAZOLE 30 MG CAP GTB SCH (05:06)
[2019-06-10] MEDS: metroNIDAZOLE 500 MG TAB PO SCH ×3 (05:06→21:53)
[2019-06-10] MEDS: INSULIN ASPART [NOVOLOG] 3 ML PEN SC SCH ×3 (05:21→22:00)
[2019-06-10] MEDS: LEVALBUTEROL (HFA) 15 GM INHALER INH SCH ×3 (07:40→23:01)
[2019-06-10] MEDS: IPRATROPIUM (HFA) 12.9 GM INHALER INH SCH ×3 (07:40→23:01)
[2019-06-10] MEDS: MIDODRINE 10 MG TABLET PO SCH (09:00)
[2019-06-10] MEDS: MULTIVITAMINS 30 ML CUP GTB SCH (09:06)
[2019-06-10] MEDS: GABAPENTIN 300 MG CAP GTB SCH ×2 (09:07→21:51)
[2019-06-10] MEDS: METOPROLOL 25 MG TAB PO SCH ×2 (09:07→21:52)
[2019-06-10] MEDS: ASCORBIC ACID 500 MG TAB GTB SCH (09:07)
[2019-06-10] MEDS: LORATADINE 10 MG TAB PO SCH (09:07)
[2019-06-10] MEDS: QUETIAPINE 25 MG TAB GTB SCH ×2 (09:07→21:51)
[2019-06-10] MEDS: DESMOPRESSIN 4 MCG INJ SC SCH ×2 (09:08→21:53)
[2019-06-10] MEDS: DIPHENHYDRAMINE 50 MG INJ IV PRN ×2 (09:10→21:57)
[2019-06-10] MEDS: INSULIN GLARGINE [LANTus] (100 UNITS/ML) SYG SC SCH (09:12)
[2019-06-10] MEDS: HYDROCORTISONE 1% 28.35 GM OINT TOP SCH ×3 (09:13→21:52)
[2019-06-10] MEDS: LORAZEPAM 2 MG INJ IV PRN (10:14)
[2019-06-10] MEDS: CASPOFUNGIN 50 MG in SOD CHLORIDE 0.9% 250 ML IVPB SCH (13:40)
[2019-06-10] MEDS: POTASSIUM CHLORIDE 20 MEQ POWDER FOR ORAL SOLN GTB SCH ×3 (15:08→22:01)
[2019-06-10] MEDS: SOD CHLORIDE 0.9% IVPB SCH (17:18)
[2019-06-10] MEDS: AMIKACIN IVPB SCH (17:18)
[2019-06-11] VITALS (25 sets, daily range): BP systolic 107–163; BP diastolic 53–83; PULSE 63–99; RESP 12–22
[2019-06-11] MEDS: LORAZEPAM 2 MG INJ IV PRN ×2 (03:45→10:08)
[2019-06-11] MEDS: hydrOXYzine HCL 10 MG TAB GTB PRN (03:46)
[2019-06-11] MEDS: metroNIDAZOLE 500 MG TAB PO SCH ×3 (05:30→21:24)
[2019-06-11] MEDS: LANSOPRAZOLE 30 MG CAP GTB SCH (05:30)
[2019-06-11] MEDS: HYDROCORTISONE 100 MG INJ IV SCH ×3 (05:30→21:23)
[2019-06-11] MEDS: VANCOMYCIN HCL 250 MG/5ML POSYG PO SCH ×3 (05:33→18:40)
[2019-06-11] MEDS: INSULIN ASPART [NOVOLOG] 3 ML PEN SC SCH ×3 (05:53→21:27)
[2019-06-11] MEDS ORDERED: POTASSIUM CHLORIDE 20 MEQ POWDER FOR ORAL SOLN GTB ONE (07:30)
[2019-06-11] MEDS: DIPHENHYDRAMINE 50 MG INJ IV PRN ×2 (07:51→18:42)
[2019-06-11] MEDS: MULTIVITAMINS 30 ML CUP GTB SCH (07:55)
[2019-06-11] MEDS: GABAPENTIN 300 MG CAP GTB SCH ×2 (07:55→21:24)
[2019-06-11] MEDS: LORATADINE 10 MG TAB PO SCH (07:55)
[2019-06-11] MEDS: QUETIAPINE 25 MG TAB GTB SCH ×2 (07:56→21:23)
[2019-06-11] MEDS: ASCORBIC ACID 500 MG TAB GTB SCH (07:56)
[2019-06-11] MEDS: METOPROLOL 25 MG TAB PO SCH ×2 (07:56→21:24)
[2019-06-11] MEDS: INSULIN GLARGINE [LANTus] (100 UNITS/ML) SYG SC SCH (07:57)
[2019-06-11] MEDS: HYDROCORTISONE 1% 28.35 GM OINT TOP SCH ×3 (07:58→21:29)
[2019-06-11] MEDS: IPRATROPIUM (HFA) 12.9 GM INHALER INH SCH (09:56)
[2019-06-11] MEDS: LEVALBUTEROL (HFA) 15 GM INHALER INH SCH (09:56)
[2019-06-11] MEDS: DESMOPRESSIN 4 MCG INJ SC SCH ×2 (11:35→21:34)
[2019-06-11] MEDS: CASPOFUNGIN 50 MG in SOD CHLORIDE 0.9% 250 ML IVPB SCH (13:24)
[2019-06-12] VITALS (23 sets, daily range): BP systolic 114–178; BP diastolic 56–83; PULSE 54–90; RESP 12–23
[2019-06-12] MEDS: VANCOMYCIN HCL 250 MG/5ML POSYG PO SCH ×4 (00:10→18:25)
[2019-06-12] MEDS: IPRATROPIUM (HFA) 12.9 GM INHALER INH SCH ×4 (00:44→23:17)
[2019-06-12] MEDS: LEVALBUTEROL (HFA) 15 GM INHALER INH SCH ×4 (00:44→23:17)
[2019-06-12] MEDS: INSULIN ASPART [NOVOLOG] 3 ML PEN SC SCH ×3 (05:19→21:36)
[2019-06-12] MEDS: LANSOPRAZOLE 30 MG CAP GTB SCH (05:20)
[2019-06-12] MEDS: metroNIDAZOLE 500 MG TAB PO SCH ×3 (05:20→21:31)
[2019-06-12] MEDS: HYDROCORTISONE 100 MG INJ IV SCH ×3 (05:20→21:35)
[2019-06-12] MEDS: AMIKACIN IVPB SCH (05:22)
[2019-06-12] MEDS: SOD CHLORIDE 0.9% IVPB SCH (05:22)
[2019-06-12] MEDS: MULTIVITAMINS 30 ML CUP GTB SCH (08:27)
[2019-06-12] MEDS: DIPHENHYDRAMINE 50 MG INJ IV PRN (08:27)
[2019-06-12] MEDS: LORATADINE 10 MG TAB PO SCH (08:27)
[2019-06-12] MEDS: GABAPENTIN 300 MG CAP GTB SCH ×2 (08:28→21:31)
[2019-06-12] MEDS: ASCORBIC ACID 500 MG TAB GTB SCH (08:28)
[2019-06-12] MEDS: METOPROLOL 25 MG TAB PO SCH ×2 (08:28→21:31)
[2019-06-12] MEDS: QUETIAPINE 25 MG TAB GTB SCH ×2 (08:28→21:31)
[2019-06-12] MEDS: HYDROCORTISONE 1% 28.35 GM OINT TOP SCH ×3 (08:29→21:35)
[2019-06-12] MEDS: DESMOPRESSIN 4 MCG INJ SC SCH ×2 (08:29→21:34)
[2019-06-12] MEDS: INSULIN GLARGINE [LANTus] (100 UNITS/ML) SYG SC SCH (08:42)
[2019-06-12] MEDS: LORAZEPAM 2 MG INJ IV PRN (10:39)
[2019-06-12] MEDS: hydrALAzine 20 MG INJ IV PRN (12:35)
[2019-06-12] MEDS: CASPOFUNGIN 50 MG in SOD CHLORIDE 0.9% 250 ML IVPB SCH (14:27)
[2019-06-13] VITALS (27 sets, daily range): BP systolic 128–163; BP diastolic 59–87; PULSE 60–86; RESP 12–20
[2019-06-13] MEDS: VANCOMYCIN HCL 250 MG/5ML POSYG PO SCH ×5 (00:33→23:15)
[2019-06-13] MEDS: HYDROCORTISONE 100 MG INJ IV SCH ×3 (05:18→21:52)
[2019-06-13] MEDS: metroNIDAZOLE 500 MG TAB PO SCH ×3 (05:19→21:55)
[2019-06-13] MEDS: LANSOPRAZOLE 30 MG CAP GTB SCH (05:19)
[2019-06-13] MEDS: INSULIN ASPART [NOVOLOG] 3 ML PEN SC SCH ×3 (05:28→21:59)
[2019-06-13] MEDS: LEVALBUTEROL (HFA) 15 GM INHALER INH SCH ×3 (09:11→20:08)
[2019-06-13] MEDS: IPRATROPIUM (HFA) 12.9 GM INHALER INH SCH ×3 (09:11→20:08)
[2019-06-13] MEDS: LOPERAMIDE HCL 1 MG/5 ML LIQUID (10 ML UD CUP) GTB PRN (09:32)
[2019-06-13] MEDS: LORATADINE 10 MG TAB PO SCH (09:33)
[2019-06-13] MEDS: DIPHENHYDRAMINE 50 MG INJ IV PRN ×2 (09:33→21:52)
[2019-06-13] MEDS: MULTIVITAMINS 30 ML CUP GTB SCH (09:33)
[2019-06-13] MEDS: QUETIAPINE 25 MG TAB GTB SCH ×2 (09:33→21:49)
[2019-06-13] MEDS: ACETAMINOPHEN 650MG/20.3ML CUP GTB PRN (09:33)
[2019-06-13] MEDS: GABAPENTIN 300 MG CAP GTB SCH ×2 (09:33→21:49)
[2019-06-13] MEDS: DESMOPRESSIN 4 MCG INJ SC SCH ×2 (09:33→21:50)
[2019-06-13] MEDS: ASCORBIC ACID 500 MG TAB GTB SCH (09:33)
[2019-06-13] MEDS: HYDROCORTISONE 1% 28.35 GM OINT TOP SCH ×3 (09:34→21:52)
[2019-06-13] MEDS: METOPROLOL 25 MG TAB PO SCH ×2 (09:35→21:50)
[2019-06-13] MEDS: INSULIN GLARGINE [LANTus] (100 UNITS/ML) SYG SC SCH (09:41)
[2019-06-13] MEDS: LORAZEPAM 2 MG INJ IV PRN (14:14)
[2019-06-13] MEDS ORDERED: POTASSIUM CHLORIDE 100 ML IVPB ONE (15:00)
[2019-06-13] MEDS ORDERED: POTASSIUM CHLORIDE 20 MEQ POWDER FOR ORAL SOLN GTB ONE (15:00)
[2019-06-13] MEDS ORDERED: ACETAZOLAMIDE 500 MG INJ IV ONE (19:00)
[2019-06-14] VITALS (25 sets, daily range): BP systolic 102–180; BP diastolic 46–82; PULSE 67–94; RESP 14–22
[2019-06-14] MEDS: HYDROCORTISONE 100 MG INJ IV SCH ×3 (05:38→21:23)
[2019-06-14] MEDS: metroNIDAZOLE 500 MG TAB PO SCH ×3 (05:41→21:26)
[2019-06-14] MEDS: LANSOPRAZOLE 30 MG CAP GTB SCH (05:42)
[2019-06-14] MEDS: INSULIN ASPART [NOVOLOG] 3 ML PEN SC SCH ×3 (05:46→21:31)
[2019-06-14] MEDS: VANCOMYCIN HCL 250 MG/5ML POSYG PO SCH ×3 (05:46→17:05)
[2019-06-14] MEDS: IPRATROPIUM (HFA) 12.9 GM INHALER INH SCH ×3 (08:27→23:39)
[2019-06-14] MEDS: LEVALBUTEROL (HFA) 15 GM INHALER INH SCH ×3 (08:27→23:39)
[2019-06-14] MEDS ORDERED: POTASSIUM CHLORIDE 20 MEQ POWDER FOR ORAL SOLN GTB ONE ×2 (09:00→13:00)
[2019-06-14] MEDS: ASCORBIC ACID 500 MG TAB GTB SCH (09:33)
[2019-06-14] MEDS: GABAPENTIN 300 MG CAP GTB SCH ×2 (09:33→21:18)
[2019-06-14] MEDS: QUETIAPINE 25 MG TAB GTB SCH ×2 (09:33→21:18)
[2019-06-14] MEDS: MULTIVITAMINS 30 ML CUP GTB SCH (09:34)
[2019-06-14] MEDS: ACETAMINOPHEN 650MG/20.3ML CUP GTB PRN (09:34)
[2019-06-14] MEDS: HYDROCORTISONE 1% 28.35 GM OINT TOP SCH ×3 (09:35→21:23)
[2019-06-14] MEDS: DESMOPRESSIN 4 MCG INJ SC SCH ×2 (09:35→21:21)
[2019-06-14] MEDS: LORATADINE 10 MG TAB PO SCH (09:41)
[2019-06-14] MEDS: METOPROLOL 25 MG TAB PO SCH ×2 (09:41→21:20)
[2019-06-14] MEDS: hydrALAzine 20 MG INJ IV PRN (09:42)
[2019-06-14] MEDS: INSULIN GLARGINE [LANTus] (100 UNITS/ML) SYG SC SCH (09:45)
[2019-06-14] MEDS: LORAZEPAM 2 MG INJ IV PRN (10:32)
[2019-06-14] MEDS: DIPHENHYDRAMINE 50 MG INJ IV PRN ×2 (12:57→21:27)
[2019-06-14] MEDS: hydrOXYzine HCL 10 MG TAB GTB PRN (14:36)
[2019-06-14] MEDS: SACCHAROMYCES BOULARDII 250 MG CAP PO SCH (21:19)
[2019-06-15] VITALS (25 sets, daily range): BP systolic 115–168; BP diastolic 60–79; PULSE 64–91; RESP 13–22
[2019-06-15] MEDS: VANCOMYCIN HCL 250 MG/5ML POSYG PO SCH ×4 (00:29→18:06)
[2019-06-15] MEDS: metroNIDAZOLE 500 MG TAB PO SCH ×3 (05:24→22:33)
[2019-06-15] MEDS: LANSOPRAZOLE 30 MG CAP GTB SCH (05:25)
[2019-06-15] MEDS: HYDROCORTISONE 100 MG INJ IV SCH ×3 (05:25→22:32)
[2019-06-15] MEDS: INSULIN ASPART [NOVOLOG] 3 ML PEN SC SCH ×3 (05:39→22:00)
[2019-06-15] MEDS: DIPHENHYDRAMINE 50 MG INJ IV PRN ×3 (05:46→22:49)
[2019-06-15] MEDS: IPRATROPIUM (HFA) 12.9 GM INHALER INH SCH ×3 (07:58→23:03)
[2019-06-15] MEDS: LEVALBUTEROL (HFA) 15 GM INHALER INH SCH ×3 (07:58→23:03)
[2019-06-15] MEDS: DESMOPRESSIN 4 MCG INJ SC SCH ×2 (08:21→22:32)
[2019-06-15] MEDS: MULTIVITAMINS 30 ML CUP GTB SCH (08:21)
[2019-06-15] MEDS: SACCHAROMYCES BOULARDII 250 MG CAP PO SCH ×2 (08:30→22:30)
[2019-06-15] MEDS: ASCORBIC ACID 500 MG TAB GTB SCH (08:30)
[2019-06-15] MEDS: GABAPENTIN 300 MG CAP GTB SCH ×2 (08:30→22:29)
[2019-06-15] MEDS: LORATADINE 10 MG TAB PO SCH (08:30)
[2019-06-15] MEDS: QUETIAPINE 25 MG TAB GTB SCH ×2 (08:30→22:30)
[2019-06-15] MEDS: METOPROLOL 25 MG TAB PO SCH ×2 (08:32→22:31)
[2019-06-15] MEDS: HYDROCORTISONE 1% 28.35 GM OINT TOP SCH ×3 (08:33→21:00)
[2019-06-15] MEDS: INSULIN GLARGINE [LANTus] (100 UNITS/ML) SYG SC SCH (09:45)
[2019-06-15] MEDS ORDERED: POTASSIUM CHLORIDE 20 MEQ POWDER FOR ORAL SOLN GTB ONE (15:30)
[2019-06-15] MEDS: POTASSIUM CHLORIDE 20 MEQ POWDER FOR ORAL SOLN GTB SCH (22:30)
[2019-06-16] VITALS (19 sets, daily range): BP systolic 110–214; BP diastolic 55–92; PULSE 69–96; RESP 12–21
[2019-06-16] MEDS: LANSOPRAZOLE 30 MG CAP GTB SCH (05:41)
[2019-06-16] MEDS: HYDROCORTISONE 100 MG INJ IV SCH ×3 (05:42→21:28)
[2019-06-16] MEDS: metroNIDAZOLE 500 MG TAB PO SCH ×3 (05:42→22:44)
[2019-06-16] MEDS: VANCOMYCIN HCL 250 MG/5ML POSYG PO SCH ×5 (05:44→21:29)
[2019-06-16] MEDS: INSULIN ASPART [NOVOLOG] 3 ML PEN SC SCH ×3 (05:54→22:00)
[2019-06-16] MEDS: DIPHENHYDRAMINE 50 MG INJ IV PRN ×2 (07:10→21:30)
[2019-06-16] MEDS: IPRATROPIUM (HFA) 12.9 GM INHALER INH SCH ×2 (08:12→15:46)
[2019-06-16] MEDS: LEVALBUTEROL (HFA) 15 GM INHALER INH SCH ×3 (08:12→23:59)
[2019-06-16] MEDS: MULTIVITAMINS 30 ML CUP GTB SCH (09:31)
[2019-06-16] MEDS: HYDROCORTISONE 1% 28.35 GM OINT TOP SCH ×3 (09:31→21:28)
[2019-06-16] MEDS: POTASSIUM CHLORIDE 20 MEQ POWDER FOR ORAL SOLN GTB SCH ×2 (09:32→21:26)
[2019-06-16] MEDS: GABAPENTIN 300 MG CAP GTB SCH ×2 (09:32→21:26)
[2019-06-16] MEDS: QUETIAPINE 25 MG TAB GTB SCH ×2 (09:32→21:26)
[2019-06-16] MEDS: ASCORBIC ACID 500 MG TAB GTB SCH (09:32)
[2019-06-16] MEDS: LORATADINE 10 MG TAB PO SCH (09:32)
[2019-06-16] MEDS: METOPROLOL 25 MG TAB PO SCH ×2 (09:34→21:27)
[2019-06-16] MEDS: INSULIN GLARGINE [LANTus] (100 UNITS/ML) SYG SC SCH (09:52)
[2019-06-16] MEDS: DESMOPRESSIN 4 MCG INJ SC SCH ×2 (13:00→21:28)
[2019-06-16] MEDS: SACCHAROMYCES BOULARDII 250 MG CAP PO SCH ×2 (13:01→21:26)
[2019-06-16] MEDS ORDERED: POTASSIUM CHLORIDE (SR) 20 MEQ TAB PO ONE (22:46)
[2019-06-17] VITALS (17 sets, daily range): BP systolic 121–154; BP diastolic 73–78; PULSE 71–107; RESP 13–23
[2019-06-17] MEDS: INSULIN ASPART [NOVOLOG] 3 ML PEN SC SCH ×3 (06:00→22:00)
[2019-06-17] MEDS: LANSOPRAZOLE 30 MG CAP GTB SCH (06:04)
[2019-06-17] MEDS: HYDROCORTISONE 100 MG INJ IV SCH ×3 (06:05→22:08)
[2019-06-17] MEDS: metroNIDAZOLE 500 MG TAB PO SCH ×3 (06:06→22:09)
[2019-06-17] MEDS: VANCOMYCIN HCL 250 MG/5ML POSYG PO SCH ×3 (06:06→17:42)
[2019-06-17] MEDS: LEVALBUTEROL (HFA) 15 GM INHALER INH SCH ×3 (09:15→23:26)
[2019-06-17] MEDS: IPRATROPIUM (HFA) 12.9 GM INHALER INH SCH ×4 (09:15→23:26)
[2019-06-17] MEDS: GABAPENTIN 300 MG CAP GTB SCH ×2 (10:00→22:06)
[2019-06-17] MEDS: SACCHAROMYCES BOULARDII 250 MG CAP PO SCH ×2 (10:00→22:07)
[2019-06-17] MEDS: POTASSIUM CHLORIDE 20 MEQ POWDER FOR ORAL SOLN GTB SCH ×2 (10:00→22:06)
[2019-06-17] MEDS: MULTIVITAMINS 30 ML CUP GTB SCH (10:01)
[2019-06-17] MEDS: LORATADINE 10 MG TAB PO SCH (10:01)
[2019-06-17] MEDS: QUETIAPINE 25 MG TAB GTB SCH ×3 (10:01→22:07)
[2019-06-17] MEDS: ASCORBIC ACID 500 MG TAB GTB SCH (10:02)
[2019-06-17] MEDS: METOPROLOL 25 MG TAB PO SCH ×2 (10:02→22:07)
[2019-06-17] MEDS: DESMOPRESSIN 4 MCG INJ SC SCH ×2 (10:03→22:08)
[2019-06-17] MEDS: HYDROCORTISONE 1% 28.35 GM OINT TOP SCH ×3 (10:03→22:08)
[2019-06-17] MEDS: INSULIN GLARGINE [LANTus] (100 UNITS/ML) SYG SC SCH (10:19)
[2019-06-17] MEDS: hydrOXYzine HCL 10 MG TAB GTB PRN (22:09)
[2019-06-17] MEDS ORDERED: POTASSIUM CHLORIDE (SR) 20 MEQ TAB PO STA (22:31)
[2019-06-18] VITALS (19 sets, daily range): BP systolic 93–143; BP diastolic 54–68; PULSE 60–86; RESP 12–23
[2019-06-18] MEDS: LANSOPRAZOLE 30 MG CAP GTB SCH (05:28)
[2019-06-18] MEDS: HYDROCORTISONE 100 MG INJ IV SCH ×3 (05:29→21:41)
[2019-06-18] MEDS: metroNIDAZOLE 500 MG TAB PO SCH ×2 (05:30→14:26)
[2019-06-18] MEDS: VANCOMYCIN HCL 250 MG/5ML POSYG PO SCH ×4 (05:31→18:17)
[2019-06-18] MEDS: INSULIN ASPART [NOVOLOG] 3 ML PEN SC SCH ×3 (05:50→22:00)
[2019-06-18] MEDS: IPRATROPIUM (HFA) 12.9 GM INHALER INH SCH ×2 (07:16→15:55)
[2019-06-18] MEDS: LEVALBUTEROL (HFA) 15 GM INHALER INH SCH ×2 (07:17→15:55)
[2019-06-18] MEDS ORDERED: POTASSIUM CHLORIDE 20 MEQ POWDER FOR ORAL SOLN PO ONE (08:30)
[2019-06-18] MEDS: MULTIVITAMINS 30 ML CUP GTB SCH (08:59)
[2019-06-18] MEDS: DESMOPRESSIN 4 MCG INJ SC SCH ×2 (09:00→21:41)
[2019-06-18] MEDS: HYDROCORTISONE 1% 28.35 GM OINT TOP SCH ×3 (09:00→21:40)
[2019-06-18] MEDS: QUETIAPINE 25 MG TAB GTB SCH ×3 (09:00→21:39)
[2019-06-18] MEDS: SACCHAROMYCES BOULARDII 250 MG CAP PO SCH ×2 (09:01→21:39)
[2019-06-18] MEDS: METOPROLOL 25 MG TAB PO SCH ×2 (09:01→21:40)
[2019-06-18] MEDS: ASCORBIC ACID 500 MG TAB GTB SCH (09:01)
[2019-06-18] MEDS: GABAPENTIN 300 MG CAP GTB SCH ×2 (09:02→21:39)
[2019-06-18] MEDS: LORATADINE 10 MG TAB PO SCH (09:02)
[2019-06-18] MEDS: POTASSIUM CHLORIDE 20 MEQ POWDER FOR ORAL SOLN GTB SCH ×2 (09:02→21:39)
[2019-06-18] MEDS: INSULIN GLARGINE [LANTus] (100 UNITS/ML) SYG SC SCH (12:54)
[2019-06-18] MEDS: DEXTROSE 50% 50 ML SYRINGE IV PRN (22:27)
[2019-06-19] VITALS (23 sets, daily range): BP systolic 118–157; BP diastolic 59–92; PULSE 75–109; RESP 13–25
[2019-06-19] MEDS: hydrOXYzine HCL 10 MG TAB GTB PRN ×2 (00:16→21:31)
[2019-06-19] MEDS: VANCOMYCIN HCL 250 MG/5ML POSYG PO SCH ×4 (00:16→17:53)
[2019-06-19] MEDS: IPRATROPIUM (HFA) 12.9 GM INHALER INH SCH ×4 (01:12→23:26)
[2019-06-19] MEDS: LEVALBUTEROL (HFA) 15 GM INHALER INH SCH ×4 (01:12→23:26)
[2019-06-19] MEDS: DIPHENHYDRAMINE 50 MG INJ IV PRN ×2 (04:40→11:45)
[2019-06-19] MEDS: LANSOPRAZOLE 30 MG CAP GTB SCH (05:03)
[2019-06-19] MEDS: HYDROCORTISONE 100 MG INJ IV SCH ×3 (05:13→21:31)
[2019-06-19] MEDS: INSULIN ASPART [NOVOLOG] 3 ML PEN SC SCH ×3 (05:13→22:00)
[2019-06-19] MEDS: ASCORBIC ACID 500 MG TAB GTB SCH (08:55)
[2019-06-19] MEDS: SACCHAROMYCES BOULARDII 250 MG CAP PO SCH ×2 (08:55→21:30)
[2019-06-19] MEDS: POTASSIUM CHLORIDE 20 MEQ POWDER FOR ORAL SOLN GTB SCH ×2 (08:55→21:29)
[2019-06-19] MEDS: MULTIVITAMINS 30 ML CUP GTB SCH (08:55)
[2019-06-19] MEDS: QUETIAPINE 25 MG TAB GTB SCH ×3 (08:56→21:31)
[2019-06-19] MEDS: HYDROCORTISONE 1% 28.35 GM OINT TOP SCH ×3 (08:56→22:15)
[2019-06-19] MEDS: LORATADINE 10 MG TAB PO SCH (08:56)
[2019-06-19] MEDS: METOPROLOL 25 MG TAB PO SCH ×2 (08:57→21:30)
[2019-06-19] MEDS: GABAPENTIN 300 MG CAP GTB SCH ×2 (08:57→21:30)
[2019-06-19] MEDS: INSULIN GLARGINE [LANTus] (100 UNITS/ML) SYG SC SCH (09:07)
[2019-06-19] MEDS: DESMOPRESSIN 4 MCG INJ SC SCH ×2 (11:37→22:15)
[2019-06-19] MEDS: LORAZEPAM 2 MG INJ IV PRN (21:32)
[2019-06-20] VITALS (22 sets, daily range): BP systolic 109–135; BP diastolic 55–95; PULSE 72–113; RESP 12–23
[2019-06-20] MEDS: VANCOMYCIN HCL 250 MG/5ML POSYG PO SCH ×4 (01:47→17:37)
[2019-06-20] MEDS: INSULIN ASPART [NOVOLOG] 3 ML PEN SC SCH ×3 (06:00→21:29)
[2019-06-20] MEDS: HYDROCORTISONE 100 MG INJ IV SCH ×3 (06:31→21:28)
[2019-06-20] MEDS: LANSOPRAZOLE 30 MG CAP GTB SCH (06:31)
[2019-06-20] MEDS: IPRATROPIUM (HFA) 12.9 GM INHALER INH SCH ×2 (07:54→15:39)
[2019-06-20] MEDS: LEVALBUTEROL (HFA) 15 GM INHALER INH SCH ×2 (07:56→15:39)
[2019-06-20] MEDS: HYDROCORTISONE 1% 28.35 GM OINT TOP SCH ×3 (08:33→21:27)
[2019-06-20] MEDS: MULTIVITAMINS 30 ML CUP GTB SCH (08:34)
[2019-06-20] MEDS: POTASSIUM CHLORIDE 20 MEQ POWDER FOR ORAL SOLN GTB SCH ×2 (08:35→21:26)
[2019-06-20] MEDS: DESMOPRESSIN 4 MCG INJ SC SCH ×2 (08:36→22:11)
[2019-06-20] MEDS: SACCHAROMYCES BOULARDII 250 MG CAP PO SCH ×2 (08:37→21:25)
[2019-06-20] MEDS: METOPROLOL 25 MG TAB PO SCH ×2 (08:38→21:27)
[2019-06-20] MEDS: QUETIAPINE 25 MG TAB GTB SCH ×3 (08:38→21:25)
[2019-06-20] MEDS: GABAPENTIN 300 MG CAP GTB SCH ×2 (08:38→21:26)
[2019-06-20] MEDS: LORATADINE 10 MG TAB PO SCH (08:38)
[2019-06-20] MEDS: ASCORBIC ACID 500 MG TAB GTB SCH (08:38)
[2019-06-20] MEDS: INSULIN GLARGINE [LANTus] (100 UNITS/ML) SYG SC SCH (09:02)
[2019-06-20] MEDS: LORAZEPAM 2 MG INJ IV PRN ×2 (12:11→20:06)
[2019-06-21] VITALS (21 sets, daily range): BP systolic 101–160; BP diastolic 53–78; PULSE 80–109; RESP 12–22
[2019-06-21] MEDS: VANCOMYCIN HCL 250 MG/5ML POSYG PO SCH ×5 (00:10→23:59)
[2019-06-21] MEDS: LEVALBUTEROL (HFA) 15 GM INHALER INH SCH ×3 (01:13→17:07)
[2019-06-21] MEDS: IPRATROPIUM (HFA) 12.9 GM INHALER INH SCH ×3 (01:13→17:07)
[2019-06-21] MEDS: LANSOPRAZOLE 30 MG CAP GTB SCH (05:19)
[2019-06-21] MEDS: INSULIN ASPART [NOVOLOG] 3 ML PEN SC SCH ×3 (05:25→21:14)
[2019-06-21] MEDS: HYDROCORTISONE 100 MG INJ IV SCH ×3 (05:55→21:13)
[2019-06-21] MEDS: LORAZEPAM 2 MG INJ IV PRN ×2 (05:55→21:18)
[2019-06-21] MEDS: MULTIVITAMINS 30 ML CUP GTB SCH (10:12)
[2019-06-21] MEDS: SACCHAROMYCES BOULARDII 250 MG CAP PO SCH ×2 (10:13→20:07)
[2019-06-21] MEDS: POTASSIUM CHLORIDE 20 MEQ POWDER FOR ORAL SOLN GTB SCH ×2 (10:13→20:07)
[2019-06-21] MEDS: GABAPENTIN 300 MG CAP GTB SCH ×2 (10:15→20:07)
[2019-06-21] MEDS: METOPROLOL 25 MG TAB PO SCH ×2 (10:15→20:07)
[2019-06-21] MEDS: ASCORBIC ACID 500 MG TAB GTB SCH (10:16)
[2019-06-21] MEDS: DESMOPRESSIN 4 MCG INJ SC SCH ×2 (10:16→20:08)
[2019-06-21] MEDS: QUETIAPINE 25 MG TAB GTB SCH ×3 (10:16→20:07)
[2019-06-21] MEDS: LORATADINE 10 MG TAB PO SCH (10:16)
[2019-06-21] MEDS: DIPHENHYDRAMINE 50 MG INJ IV PRN ×2 (10:19→20:06)
[2019-06-21] MEDS: INSULIN GLARGINE [LANTus] (100 UNITS/ML) SYG SC SCH (10:42)
[2019-06-21] MEDS: HYDROCORTISONE 1% 28.35 GM OINT TOP SCH ×3 (13:00→20:08)
[2019-06-21] MEDS ORDERED: IVERMECTIN 3 MG TAB PO ONE (15:00)
[2019-06-22] VITALS (20 sets, daily range): BP systolic 92–137; BP diastolic 55–76; PULSE 83–122; RESP 12–25
[2019-06-22] MEDS: LEVALBUTEROL (HFA) 15 GM INHALER INH SCH ×4 (00:22→23:52)
[2019-06-22] MEDS: IPRATROPIUM (HFA) 12.9 GM INHALER INH SCH ×4 (00:22→23:52)
[2019-06-22] MEDS: DIPHENHYDRAMINE 50 MG INJ IV PRN ×3 (04:05→18:05)
[2019-06-22] MEDS: LANSOPRAZOLE 30 MG CAP GTB SCH (05:43)
[2019-06-22] MEDS: VANCOMYCIN HCL 250 MG/5ML POSYG PO SCH ×2 (05:43→11:01)
[2019-06-22] MEDS: HYDROCORTISONE 100 MG INJ IV SCH ×3 (05:44→21:52)
[2019-06-22] MEDS: INSULIN ASPART [NOVOLOG] 3 ML PEN SC SCH ×3 (05:46→21:53)
[2019-06-22] MEDS: METOPROLOL 25 MG TAB PO SCH ×2 (09:00→21:51)
[2019-06-22] MEDS: LORAZEPAM 2 MG INJ IV PRN (09:17)
[2019-06-22] MEDS: MULTIVITAMINS 30 ML CUP GTB SCH (10:06)
[2019-06-22] MEDS: POTASSIUM CHLORIDE 20 MEQ POWDER FOR ORAL SOLN GTB SCH ×2 (10:07→21:50)
[2019-06-22] MEDS: INSULIN GLARGINE [LANTus] (100 UNITS/ML) SYG SC SCH (10:32)
[2019-06-22] MEDS: LORATADINE 10 MG TAB PO SCH (10:50)
[2019-06-22] MEDS: DESMOPRESSIN 4 MCG INJ SC SCH ×2 (10:50→21:51)
[2019-06-22] MEDS: GABAPENTIN 300 MG CAP GTB SCH ×2 (10:50→21:49)
[2019-06-22] MEDS: SACCHAROMYCES BOULARDII 250 MG CAP PO SCH ×2 (10:51→21:50)
[2019-06-22] MEDS: QUETIAPINE 25 MG TAB GTB SCH ×3 (10:51→21:50)
[2019-06-22] MEDS: ASCORBIC ACID 500 MG TAB GTB SCH (10:51)
[2019-06-22] MEDS: HYDROCORTISONE 1% 28.35 GM OINT TOP SCH ×3 (10:52→21:52)
[2019-06-22] MEDS: [UNRECOGNIZED DRUG - OTHER] XX SCH ×2 (12:00→20:01)
[2019-06-23] VITALS (21 sets, daily range): BP systolic 112–157; BP diastolic 55–86; PULSE 89–115; RESP 13–23
[2019-06-23] MEDS: hydrOXYzine HCL 10 MG TAB GTB PRN (00:11)
[2019-06-23] MEDS: LORAZEPAM 2 MG INJ IV PRN ×3 (03:43→18:20)
[2019-06-23] MEDS: [UNRECOGNIZED DRUG - OTHER] XX SCH ×3 (04:00→20:00)
[2019-06-23] MEDS: INSULIN ASPART [NOVOLOG] 3 ML PEN SC SCH ×3 (06:00→22:00)
[2019-06-23] MEDS: LANSOPRAZOLE 30 MG CAP GTB SCH (06:03)
[2019-06-23] MEDS: HYDROCORTISONE 100 MG INJ IV SCH ×3 (06:03→22:11)
[2019-06-23] MEDS: DIPHENHYDRAMINE 50 MG INJ IV PRN ×2 (06:16→12:24)
[2019-06-23] MEDS: IPRATROPIUM (HFA) 12.9 GM INHALER INH SCH ×2 (07:49→17:19)
[2019-06-23] MEDS: LEVALBUTEROL (HFA) 15 GM INHALER INH SCH ×2 (07:49→17:19)
[2019-06-23] MEDS: POTASSIUM CHLORIDE 20 MEQ POWDER FOR ORAL SOLN GTB SCH ×2 (09:51→22:08)
[2019-06-23] MEDS: SACCHAROMYCES BOULARDII 250 MG CAP PO SCH ×2 (09:52→22:09)
[2019-06-23] MEDS: GABAPENTIN 300 MG CAP GTB SCH ×2 (09:53→22:08)
[2019-06-23] MEDS: MULTIVITAMINS 30 ML CUP GTB SCH (09:53)
[2019-06-23] MEDS: QUETIAPINE 25 MG TAB GTB SCH ×3 (09:54→22:08)
[2019-06-23] MEDS: DESMOPRESSIN 4 MCG INJ SC SCH ×2 (09:54→22:10)
[2019-06-23] MEDS: LORATADINE 10 MG TAB PO SCH (09:54)
[2019-06-23] MEDS: METOPROLOL 25 MG TAB PO SCH ×2 (09:54→22:10)
[2019-06-23] MEDS: HYDROCORTISONE 1% 28.35 GM OINT TOP SCH ×3 (09:55→22:10)
[2019-06-23] MEDS: ASCORBIC ACID 500 MG TAB GTB SCH (09:55)
[2019-06-23] MEDS: INSULIN GLARGINE [LANTus] (100 UNITS/ML) SYG SC SCH (10:33)
[2019-06-24] VITALS (20 sets, daily range): BP systolic 85–131; BP diastolic 50–80; PULSE 71–135; RESP 13–25
[2019-06-24] MEDS: LEVALBUTEROL (HFA) 15 GM INHALER INH SCH ×4 (01:56→23:21)
[2019-06-24] MEDS: IPRATROPIUM (HFA) 12.9 GM INHALER INH SCH ×4 (01:56→23:21)
[2019-06-24] MEDS: [UNRECOGNIZED DRUG - OTHER] XX SCH (04:00)
[2019-06-24] MEDS: INSULIN ASPART [NOVOLOG] 3 ML PEN SC SCH ×3 (06:00→21:54)
[2019-06-24] MEDS: HYDROCORTISONE 100 MG INJ IV SCH ×3 (06:13→21:53)
[2019-06-24] MEDS: hydrOXYzine HCL 10 MG TAB GTB PRN (06:13)
[2019-06-24] MEDS: LANSOPRAZOLE 30 MG CAP GTB SCH (06:13)
[2019-06-24] MEDS: DIPHENHYDRAMINE 50 MG INJ IV PRN ×3 (09:07→23:10)
[2019-06-24] MEDS: GABAPENTIN 300 MG CAP GTB SCH ×2 (09:08→21:51)
[2019-06-24] MEDS: DESMOPRESSIN 4 MCG INJ SC SCH ×2 (09:08→21:53)
[2019-06-24] MEDS: LORATADINE 10 MG TAB PO SCH (09:09)
[2019-06-24] MEDS: ASCORBIC ACID 500 MG TAB GTB SCH (09:09)
[2019-06-24] MEDS: SACCHAROMYCES BOULARDII 250 MG CAP PO SCH ×2 (09:09→21:52)
[2019-06-24] MEDS: QUETIAPINE 25 MG TAB GTB SCH ×3 (09:09→21:52)
[2019-06-24] MEDS: METOPROLOL 25 MG TAB PO SCH ×2 (09:10→21:52)
[2019-06-24] MEDS: POTASSIUM CHLORIDE 20 MEQ POWDER FOR ORAL SOLN GTB SCH ×2 (09:10→21:51)
[2019-06-24] MEDS: MULTIVITAMINS 30 ML CUP GTB SCH (09:11)
[2019-06-24] MEDS: HYDROCORTISONE 1% 28.35 GM OINT TOP SCH ×3 (09:12→21:53)
[2019-06-24] MEDS: INSULIN GLARGINE [LANTus] (100 UNITS/ML) SYG SC SCH (09:25)
[2019-06-25] VITALS (25 sets, daily range): BP systolic 117–145; BP diastolic 56–79; PULSE 74–112; RESP 13–24
[2019-06-25] MEDS: INSULIN ASPART [NOVOLOG] 3 ML PEN SC SCH ×3 (06:00→22:00)
[2019-06-25] MEDS: HYDROCORTISONE 100 MG INJ IV SCH ×3 (06:46→22:06)
[2019-06-25] MEDS: LANSOPRAZOLE 30 MG CAP GTB SCH (06:46)
[2019-06-25] MEDS: DIPHENHYDRAMINE 50 MG INJ IV PRN ×2 (07:47→22:06)
[2019-06-25] MEDS: IPRATROPIUM (HFA) 12.9 GM INHALER INH SCH ×3 (08:22→23:20)
[2019-06-25] MEDS: LEVALBUTEROL (HFA) 15 GM INHALER INH SCH ×3 (08:22→23:19)
[2019-06-25] MEDS: POTASSIUM CHLORIDE 20 MEQ POWDER FOR ORAL SOLN GTB SCH ×2 (08:52→22:20)
[2019-06-25] MEDS: MULTIVITAMINS 30 ML CUP GTB SCH (08:52)
[2019-06-25] MEDS: METOPROLOL 25 MG TAB PO SCH ×2 (08:53→22:23)
[2019-06-25] MEDS: SACCHAROMYCES BOULARDII 250 MG CAP PO SCH ×2 (08:53→22:21)
[2019-06-25] MEDS: GABAPENTIN 300 MG CAP GTB SCH ×2 (08:53→22:23)
[2019-06-25] MEDS: QUETIAPINE 25 MG TAB GTB SCH ×3 (08:53→22:22)
[2019-06-25] MEDS: ASCORBIC ACID 500 MG TAB GTB SCH (08:54)
[2019-06-25] MEDS: LORATADINE 10 MG TAB PO SCH (08:54)
[2019-06-25] MEDS: HYDROCORTISONE 1% 28.35 GM OINT TOP SCH ×3 (08:55→22:23)
[2019-06-25] MEDS: DESMOPRESSIN 4 MCG INJ SC SCH ×2 (08:55→22:06)
[2019-06-25] MEDS: INSULIN GLARGINE [LANTus] (100 UNITS/ML) SYG SC SCH (09:01)
[2019-06-25] MEDS: hydrOXYzine HCL 10 MG TAB GTB PRN ×2 (13:02→22:22)
[2019-06-25] MEDS ORDERED: PERMETHRIN 5% 60 GM CR TOP ONE (15:30)
[2019-06-26] VITALS (20 sets, daily range): BP systolic 96–134; BP diastolic 55–79; PULSE 73–113; RESP 12–23
[2019-06-26] MEDS: LORAZEPAM 2 MG INJ IV PRN ×3 (00:47→21:56)
[2019-06-26] MEDS: DIPHENHYDRAMINE 50 MG INJ IV PRN ×2 (05:47→21:56)
[2019-06-26] MEDS: INSULIN ASPART [NOVOLOG] 3 ML PEN SC SCH ×3 (06:00→22:00)
[2019-06-26] MEDS: HYDROCORTISONE 100 MG INJ IV SCH ×2 (07:00→13:12)
[2019-06-26] MEDS: LANSOPRAZOLE 30 MG CAP GTB SCH (07:01)
[2019-06-26] MEDS: IPRATROPIUM (HFA) 12.9 GM INHALER INH SCH ×3 (08:53→23:28)
[2019-06-26] MEDS: LEVALBUTEROL (HFA) 15 GM INHALER INH SCH ×3 (08:53→23:28)
[2019-06-26] MEDS: SACCHAROMYCES BOULARDII 250 MG CAP PO SCH (09:09)
[2019-06-26] MEDS: LORATADINE 10 MG TAB PO SCH (09:09)
[2019-06-26] MEDS: GABAPENTIN 300 MG CAP GTB SCH (09:09)
[2019-06-26] MEDS: QUETIAPINE 25 MG TAB GTB SCH ×2 (09:09→13:11)
[2019-06-26] MEDS: MULTIVITAMINS 30 ML CUP GTB SCH (09:10)
[2019-06-26] MEDS: METOPROLOL 25 MG TAB PO SCH (09:10)
[2019-06-26] MEDS: ASCORBIC ACID 500 MG TAB GTB SCH (09:10)
[2019-06-26] MEDS: DESMOPRESSIN 4 MCG INJ SC SCH (09:12)
[2019-06-26] MEDS: HYDROCORTISONE 1% 28.35 GM OINT TOP SCH ×2 (09:12→13:12)
[2019-06-26] MEDS: INSULIN GLARGINE [LANTus] (100 UNITS/ML) SYG SC SCH (09:42)
[2019-06-26] MEDS: POTASSIUM CHLORIDE 20 MEQ POWDER FOR ORAL SOLN GTB SCH ×2 (13:10→21:58)
[2019-06-26] MEDS: LOPERAMIDE HCL 1 MG/5 ML LIQUID (10 ML UD CUP) GTB PRN (21:57)
[2019-06-27] VITALS (19 sets, daily range): BP systolic 97–145; BP diastolic 55–72; PULSE 73–88; RESP 13–29
[2019-06-27] MEDS: HYDROCORTISONE 100 MG INJ IV SCH ×4 (00:05→22:21)
[2019-06-27] MEDS: SACCHAROMYCES BOULARDII 250 MG CAP PO SCH ×3 (00:06→20:55)
[2019-06-27] MEDS: QUETIAPINE 25 MG TAB GTB SCH ×4 (00:06→20:56)
[2019-06-27] MEDS: DESMOPRESSIN 4 MCG INJ SC SCH ×3 (00:06→20:57)
[2019-06-27] MEDS: METOPROLOL 25 MG TAB PO SCH ×3 (00:07→20:56)
[2019-06-27] MEDS: hydrOXYzine HCL 10 MG TAB GTB PRN ×3 (00:07→22:21)
[2019-06-27] MEDS: GABAPENTIN 300 MG CAP GTB SCH ×3 (00:08→20:56)
[2019-06-27] MEDS: HYDROCORTISONE 1% 28.35 GM OINT TOP SCH ×4 (00:08→20:57)
[2019-06-27] MEDS: LOPERAMIDE HCL 1 MG/5 ML LIQUID (10 ML UD CUP) GTB PRN (05:33)
[2019-06-27] MEDS: LANSOPRAZOLE 30 MG CAP GTB SCH (05:34)
[2019-06-27] MEDS: LORAZEPAM 2 MG INJ IV PRN ×2 (05:35→15:32)
[2019-06-27] MEDS: DIPHENHYDRAMINE 50 MG INJ IV PRN (05:35)
[2019-06-27] MEDS: INSULIN ASPART [NOVOLOG] 3 ML PEN SC SCH ×3 (05:57→22:00)
[2019-06-27] MEDS: MULTIVITAMINS 30 ML CUP GTB SCH (08:57)
[2019-06-27] MEDS: LORATADINE 10 MG TAB PO SCH (08:58)
[2019-06-27] MEDS: POTASSIUM CHLORIDE 20 MEQ POWDER FOR ORAL SOLN GTB SCH ×2 (08:58→20:55)
[2019-06-27] MEDS: ASCORBIC ACID 500 MG TAB GTB SCH (08:58)
[2019-06-27] MEDS: LEVALBUTEROL (HFA) 15 GM INHALER INH SCH ×3 (09:08→23:40)
[2019-06-27] MEDS: IPRATROPIUM (HFA) 12.9 GM INHALER INH SCH ×3 (09:08→23:40)
[2019-06-27] MEDS: INSULIN GLARGINE [LANTus] (100 UNITS/ML) SYG SC SCH (09:28)
[2019-06-28] VITALS (19 sets, daily range): BP systolic 93–136; BP diastolic 55–67; PULSE 60–102; RESP 12–25
[2019-06-28] MEDS: INSULIN ASPART [NOVOLOG] 3 ML PEN SC SCH ×3 (06:00→22:00)
[2019-06-28] MEDS: LANSOPRAZOLE 30 MG CAP GTB SCH (06:06)
[2019-06-28] MEDS: DIPHENHYDRAMINE 50 MG INJ IV PRN (06:06)
[2019-06-28] MEDS: HYDROCORTISONE 100 MG INJ IV SCH ×3 (06:06→22:00)
[2019-06-28] MEDS: IPRATROPIUM (HFA) 12.9 GM INHALER INH SCH ×3 (08:04→23:41)
[2019-06-28] MEDS: LEVALBUTEROL (HFA) 15 GM INHALER INH SCH ×3 (08:04→23:41)
[2019-06-28] MEDS: MULTIVITAMINS 30 ML CUP GTB SCH (08:41)
[2019-06-28] MEDS: SACCHAROMYCES BOULARDII 250 MG CAP PO SCH ×2 (08:42→22:31)
[2019-06-28] MEDS: hydrOXYzine HCL 10 MG TAB GTB PRN ×2 (08:42→18:20)
[2019-06-28] MEDS: GABAPENTIN 300 MG CAP GTB SCH ×2 (08:42→22:29)
[2019-06-28] MEDS: METOPROLOL 25 MG TAB PO SCH ×2 (08:42→22:30)
[2019-06-28] MEDS: POTASSIUM CHLORIDE 20 MEQ POWDER FOR ORAL SOLN GTB SCH ×2 (08:42→22:28)
[2019-06-28] MEDS: LORATADINE 10 MG TAB PO SCH (08:43)
[2019-06-28] MEDS: ASCORBIC ACID 500 MG TAB GTB SCH (08:43)
[2019-06-28] MEDS: DESMOPRESSIN 4 MCG INJ SC SCH ×2 (08:43→21:00)
[2019-06-28] MEDS: QUETIAPINE 25 MG TAB GTB SCH ×3 (08:43→22:30)
[2019-06-28] MEDS: HYDROCORTISONE 1% 28.35 GM OINT TOP SCH ×3 (08:44→22:27)
[2019-06-28] MEDS: LORAZEPAM 2 MG INJ IV PRN ×3 (08:44→19:07)
[2019-06-28] MEDS: INSULIN GLARGINE [LANTus] (100 UNITS/ML) SYG SC SCH (10:16)
[2019-06-28] MEDS: VALPROIC ACID LIQUID CUP 250 MG/5 ML CUP PO SCH ×2 (13:15→22:28)
[2019-06-28] MEDS ORDERED: IVERMECTIN 3 MG TAB PO ONE (13:30)
[2019-06-28] MEDS: VALPROIC ACID 250 MG CAP PO SCH (22:29)
[2019-06-29] VITALS (21 sets, daily range): BP systolic 88–140; BP diastolic 54–67; PULSE 74–88; RESP 12–23
[2019-06-29] MEDS: INSULIN ASPART [NOVOLOG] 3 ML PEN SC SCH ×3 (06:00→21:49)
[2019-06-29] MEDS: LANSOPRAZOLE 30 MG CAP GTB SCH (06:16)
[2019-06-29] MEDS: HYDROCORTISONE 100 MG INJ IV SCH ×3 (06:17→21:38)
[2019-06-29] MEDS: LEVALBUTEROL (HFA) 15 GM INHALER INH SCH ×3 (08:12→23:11)
[2019-06-29] MEDS: IPRATROPIUM (HFA) 12.9 GM INHALER INH SCH ×3 (08:12→23:11)
[2019-06-29] MEDS: ASCORBIC ACID 500 MG TAB GTB SCH (09:00)
[2019-06-29] MEDS: DESMOPRESSIN 4 MCG INJ SC SCH ×2 (09:31→21:39)
[2019-06-29] MEDS: SACCHAROMYCES BOULARDII 250 MG CAP PO SCH ×2 (09:32→21:38)
[2019-06-29] MEDS: METOPROLOL 25 MG TAB PO SCH ×2 (09:32→21:40)
[2019-06-29] MEDS: GABAPENTIN 300 MG CAP GTB SCH ×2 (09:32→21:40)
[2019-06-29] MEDS: POTASSIUM CHLORIDE 20 MEQ POWDER FOR ORAL SOLN GTB SCH ×2 (09:32→21:38)
[2019-06-29] MEDS: VALPROIC ACID LIQUID CUP 250 MG/5 ML CUP PO SCH ×2 (09:32→21:37)
[2019-06-29] MEDS: QUETIAPINE 25 MG TAB GTB SCH ×3 (09:33→21:39)
[2019-06-29] MEDS: LORATADINE 10 MG TAB PO SCH (09:33)
[2019-06-29] MEDS: INSULIN GLARGINE [LANTus] (100 UNITS/ML) SYG SC SCH (09:50)
[2019-06-29] MEDS: HYDROCORTISONE 1% 28.35 GM OINT TOP SCH ×3 (10:03→21:37)
[2019-06-29] MEDS: MULTIVITAMINS 30 ML CUP GTB SCH (10:03)
[2019-06-29] MEDS: VALPROIC ACID 250 MG CAP PO SCH (21:39)
[2019-06-30] VITALS (43 sets, daily range): BP systolic 38–229; BP diastolic 24–127; PULSE 69–145; RESP 13–32
[2019-06-30] MEDS: INSULIN ASPART [NOVOLOG] 3 ML PEN SC SCH ×3 (06:00→22:00)
[2019-06-30] MEDS: hydrOXYzine HCL 10 MG TAB GTB PRN (06:15)
[2019-06-30] MEDS: HYDROCORTISONE 100 MG INJ IV SCH ×3 (06:16→22:07)
[2019-06-30] MEDS: LEVALBUTEROL (HFA) 15 GM INHALER INH SCH ×2 (07:41→16:00)
[2019-06-30] MEDS: IPRATROPIUM (HFA) 12.9 GM INHALER INH SCH ×2 (07:41→16:00)
[2019-06-30] MEDS: VALPROIC ACID LIQUID CUP 250 MG/5 ML CUP PO SCH ×2 (09:09→21:06)
[2019-06-30] MEDS: MULTIVITAMINS 30 ML CUP GTB SCH (09:09)
[2019-06-30] MEDS: POTASSIUM CHLORIDE 20 MEQ POWDER FOR ORAL SOLN GTB SCH ×2 (09:11→21:00)
[2019-06-30] MEDS: QUETIAPINE 25 MG TAB GTB SCH ×3 (09:11→21:06)
[2019-06-30] MEDS: SACCHAROMYCES BOULARDII 250 MG CAP PO SCH ×2 (09:11→21:06)
[2019-06-30] MEDS: METOPROLOL 25 MG TAB PO SCH ×2 (09:12→20:42)
[2019-06-30] MEDS: LORATADINE 10 MG TAB PO SCH (09:12)
[2019-06-30] MEDS: GABAPENTIN 300 MG CAP GTB SCH ×2 (09:12→21:06)
[2019-06-30] MEDS: ASCORBIC ACID 500 MG TAB GTB SCH (09:12)
[2019-06-30] MEDS: DESMOPRESSIN 4 MCG INJ SC SCH ×2 (09:13→21:09)
[2019-06-30] MEDS: HYDROCORTISONE 1% 28.35 GM OINT TOP SCH ×3 (09:13→21:12)
[2019-06-30] MEDS: INSULIN GLARGINE [LANTus] (100 UNITS/ML) SYG SC SCH (10:19)
[2019-06-30] MEDS ORDERED: NORepinephrine 8MG/250 ML (PMX 250 ML ONE (16:23)
[2019-06-30] MEDS: NORepinephrine 8MG/250 ML (PMX 250 ML IV SCH (17:10)
[2019-06-30] MEDS ORDERED: PHENYLephrine 20MG IN 250 ML 250 ML IV SCH (17:30)
[2019-06-30] MEDS ORDERED: VANCOMYCIN IV PER PHARMACY XX SCH (19:00)
[2019-06-30] MEDS ORDERED: VANCOMYCIN 1 GM (PMX) 250 ML IVPB SCH (19:00)
[2019-06-30] MEDS ORDERED: VANCOMYCIN 1.25 GM/NS 250 ML 250 ML IVPB ONE (20:30)
[2019-06-30] MEDS: MEROPENEM 1 GM/50ML(PMX) 50 ML IVPB SCH (21:01)
[2019-06-30] MEDS: VALPROIC ACID 250 MG CAP PO SCH (21:06)
[2019-07-01] VITALS (77 sets, daily range): BP systolic 69–176; BP diastolic 22–98; PULSE 84–118; RESP 13–30
[2019-07-01] MEDS: NORepinephrine 8MG/250 ML (PMX 250 ML IV SCH (00:08)
[2019-07-01] MEDS: IPRATROPIUM (HFA) 12.9 GM INHALER INH SCH ×3 (00:51→16:00)
[2019-07-01] MEDS: LEVALBUTEROL (HFA) 15 GM INHALER INH SCH ×3 (00:51→16:00)
[2019-07-01] MEDS: DIPHENHYDRAMINE 50 MG INJ IV PRN ×2 (01:42→09:22)
[2019-07-01] MEDS: INSULIN ASPART [NOVOLOG] 3 ML PEN SC SCH ×3 (05:21→21:07)
[2019-07-01] MEDS: HYDROCORTISONE 100 MG INJ IV SCH ×3 (05:21→21:05)
[2019-07-01] MEDS: MULTIVITAMINS 30 ML CUP GTB SCH (08:47)
[2019-07-01] MEDS: VALPROIC ACID LIQUID CUP 250 MG/5 ML CUP PO SCH ×2 (08:48→20:27)
[2019-07-01] MEDS: MEROPENEM 1 GM/50ML(PMX) 50 ML IVPB SCH ×2 (08:48→20:29)
[2019-07-01] MEDS: SACCHAROMYCES BOULARDII 250 MG CAP PO SCH ×2 (08:48→20:26)
[2019-07-01] MEDS: QUETIAPINE 25 MG TAB GTB SCH ×3 (08:49→20:25)
[2019-07-01] MEDS: ASCORBIC ACID 500 MG TAB GTB SCH (08:49)
[2019-07-01] MEDS: LORATADINE 10 MG TAB PO SCH (08:49)
[2019-07-01] MEDS: GABAPENTIN 300 MG CAP GTB SCH ×2 (08:50→20:25)
[2019-07-01] MEDS: METOPROLOL 25 MG TAB PO SCH ×2 (08:55→20:26)
[2019-07-01] MEDS: POTASSIUM CHLORIDE 20 MEQ POWDER FOR ORAL SOLN GTB SCH (09:00)
[2019-07-01] MEDS: HYDROCORTISONE 1% 28.35 GM OINT TOP SCH ×3 (09:04→20:29)
[2019-07-01] MEDS: DESMOPRESSIN 4 MCG INJ SC SCH ×2 (09:24→20:30)
[2019-07-01] MEDS: INSULIN GLARGINE [LANTus] (100 UNITS/ML) SYG SC SCH (12:30)
[2019-07-01] MEDS ORDERED: NA POLYST SULFON 15 GM/60 ML BTL GTB SCH (13:00)
[2019-07-01] MEDS ORDERED: SODIUM POLYSTYRENE 15 GM KIT (POWDER + SORBITOL) GTB ONE (13:00)
[2019-07-01] MEDS: VALPROIC ACID 250 MG CAP PO SCH (20:26)
[2019-07-01] MEDS: VANCOMYCIN 750 MG (PMX) 250 ML IVPB SCH (20:28)
[2019-07-01] MEDS: hydrOXYzine HCL 10 MG TAB GTB PRN (21:05)
[2019-07-02] VITALS (47 sets, daily range): BP systolic 78–173; BP diastolic 45–88; PULSE 80–98; RESP 13–26
[2019-07-02] MEDS: LEVALBUTEROL (HFA) 15 GM INHALER INH SCH ×4 (00:18→23:12)
[2019-07-02] MEDS: IPRATROPIUM (HFA) 12.9 GM INHALER INH SCH ×4 (00:18→23:12)
[2019-07-02] MEDS: DIPHENHYDRAMINE 50 MG INJ IV PRN (04:42)
[2019-07-02] MEDS: HYDROCORTISONE 100 MG INJ IV SCH ×3 (05:21→21:41)
[2019-07-02] MEDS: INSULIN ASPART [NOVOLOG] 3 ML PEN SC SCH ×3 (05:26→21:42)
[2019-07-02] MEDS: INSULIN GLARGINE [LANTus] (100 UNITS/ML) SYG SC SCH (08:37)
[2019-07-02] MEDS: METOPROLOL 25 MG TAB PO SCH ×2 (08:38→21:41)
[2019-07-02] MEDS: ASCORBIC ACID 500 MG TAB GTB SCH (08:38)
[2019-07-02] MEDS: MULTIVITAMINS 30 ML CUP GTB SCH (08:38)
[2019-07-02] MEDS: VALPROIC ACID LIQUID CUP 250 MG/5 ML CUP PO SCH (08:38)
[2019-07-02] MEDS: GABAPENTIN 300 MG CAP GTB SCH ×2 (08:38→21:40)
[2019-07-02] MEDS: SACCHAROMYCES BOULARDII 250 MG CAP PO SCH ×2 (08:38→21:41)
[2019-07-02] MEDS: QUETIAPINE 25 MG TAB GTB SCH ×3 (08:39→21:41)
[2019-07-02] MEDS: DESMOPRESSIN 4 MCG INJ SC SCH ×2 (08:39→21:42)
[2019-07-02] MEDS: MEROPENEM 1 GM/50ML(PMX) 50 ML IVPB SCH ×2 (08:39→22:31)
[2019-07-02] MEDS: LORATADINE 10 MG TAB PO SCH (08:39)
[2019-07-02] MEDS: HYDROCORTISONE 1% 28.35 GM OINT TOP SCH ×3 (08:40→21:42)
[2019-07-02] MEDS ORDERED: POTASSIUM CHLORIDE 50 ML IVPB ONE (09:30)
[2019-07-02] MEDS ORDERED: POTASSIUM CHLORIDE 50 ML ONE (09:54)
[2019-07-02] MEDS: VANCOMYCIN 750 MG (PMX) 250 ML IVPB SCH (20:13)
[2019-07-02] MEDS: VALPROIC ACID 250 MG CAP PO SCH (21:43)
[2019-07-03] VITALS (43 sets, daily range): BP systolic 99–171; BP diastolic 63–86; PULSE 78–99; RESP 13–22
[2019-07-03] MEDS: INSULIN ASPART [NOVOLOG] 3 ML PEN SC SCH ×3 (05:33→21:47)
[2019-07-03] MEDS: HYDROCORTISONE 100 MG INJ IV SCH ×3 (05:34→21:49)
[2019-07-03] MEDS: LEVALBUTEROL (HFA) 15 GM INHALER INH SCH ×3 (07:29→23:28)
[2019-07-03] MEDS: IPRATROPIUM (HFA) 12.9 GM INHALER INH SCH ×3 (07:29→23:28)
[2019-07-03] MEDS: VALPROIC ACID LIQUID CUP 250 MG/5 ML CUP PO SCH ×2 (08:17→12:01)
[2019-07-03] MEDS: MULTIVITAMINS 30 ML CUP GTB SCH (08:17)
[2019-07-03] MEDS: GABAPENTIN 300 MG CAP GTB SCH ×2 (08:17→21:50)
[2019-07-03] MEDS: LORATADINE 10 MG TAB PO SCH (08:18)
[2019-07-03] MEDS: SACCHAROMYCES BOULARDII 250 MG CAP PO SCH ×2 (08:18→21:47)
[2019-07-03] MEDS: ASCORBIC ACID 500 MG TAB GTB SCH (08:18)
[2019-07-03] MEDS: QUETIAPINE 25 MG TAB GTB SCH ×3 (08:18→21:49)
[2019-07-03] MEDS: METOPROLOL 25 MG TAB PO SCH ×2 (08:19→21:50)
[2019-07-03] MEDS: HYDROCORTISONE 1% 28.35 GM OINT TOP SCH ×3 (08:20→21:50)
[2019-07-03] MEDS: MEROPENEM 1 GM/50ML(PMX) 50 ML IVPB SCH ×2 (08:33→21:49)
[2019-07-03] MEDS: DESMOPRESSIN 4 MCG INJ SC SCH ×2 (08:43→21:48)
[2019-07-03] MEDS ORDERED: POTASSIUM CHLORIDE 20 MEQ POWDER FOR ORAL SOLN GTB ONE (09:30)
[2019-07-03] MEDS: INSULIN GLARGINE [LANTus] (100 UNITS/ML) SYG SC SCH (12:00)
[2019-07-03] MEDS ORDERED: ZYVOX 600 MG TAB PO SCH (13:30)
[2019-07-03] MEDS: ZYVOX 600 MG TAB GTB SCH ×2 (14:58→21:47)
[2019-07-03] MEDS: COLLAGENASE 5 GM (UD JAR) TOP SCH (21:49)
[2019-07-03] MEDS: VALPROIC ACID 250 MG CAP PO SCH (21:50)
[2019-07-04] VITALS (29 sets, daily range): BP systolic 120–169; BP diastolic 56–89; PULSE 62–86; RESP 13–22
[2019-07-04] MEDS: HYDROCORTISONE 100 MG INJ IV SCH ×3 (05:13→21:59)
[2019-07-04] MEDS: INSULIN ASPART [NOVOLOG] 3 ML PEN SC SCH ×3 (05:14→22:00)
[2019-07-04] MEDS: LEVALBUTEROL (HFA) 15 GM INHALER INH SCH ×3 (07:26→23:38)
[2019-07-04] MEDS: IPRATROPIUM (HFA) 12.9 GM INHALER INH SCH ×3 (07:26→23:29)
[2019-07-04] MEDS: ZYVOX 600 MG TAB GTB SCH ×2 (08:30→21:59)
[2019-07-04] MEDS: ASCORBIC ACID 500 MG TAB GTB SCH (08:30)
[2019-07-04] MEDS: DESMOPRESSIN 4 MCG INJ SC SCH ×2 (08:30→22:02)
[2019-07-04] MEDS: QUETIAPINE 25 MG TAB GTB SCH ×3 (08:30→21:59)
[2019-07-04] MEDS: MULTIVITAMINS 30 ML CUP GTB SCH (08:30)
[2019-07-04] MEDS: MEROPENEM 1 GM/50ML(PMX) 50 ML IVPB SCH (08:30)
[2019-07-04] MEDS: GABAPENTIN 300 MG CAP GTB SCH ×2 (08:31→22:00)
[2019-07-04] MEDS: LORATADINE 10 MG TAB PO SCH (08:31)
[2019-07-04] MEDS: METOPROLOL 25 MG TAB PO SCH ×2 (08:31→22:00)
[2019-07-04] MEDS: SACCHAROMYCES BOULARDII 250 MG CAP PO SCH ×2 (08:31→21:59)
[2019-07-04] MEDS: HYDROCORTISONE 1% 28.35 GM OINT TOP SCH ×3 (08:32→22:12)
[2019-07-04] MEDS: INSULIN GLARGINE [LANTus] (100 UNITS/ML) SYG SC SCH (08:34)
[2019-07-04] MEDS: VALPROIC ACID LIQUID CUP 250 MG/5 ML CUP PO SCH ×2 (08:35→12:50)
[2019-07-04] MEDS: COLLAGENASE 5 GM (UD JAR) TOP SCH ×2 (08:35→22:12)
[2019-07-04] MEDS ORDERED: IVERMECTIN 3 MG TAB PO ONE (13:30)
[2019-07-04] MEDS: [UNRECOGNIZED DRUG - OTHER] XX SCH ×2 (14:30→22:30)
[2019-07-04] MEDS: VALPROIC ACID 250 MG CAP PO SCH (21:59)
[2019-07-05] VITALS (20 sets, daily range): BP systolic 127–167; BP diastolic 59–83; PULSE 72–97; RESP 16–25
[2019-07-05] MEDS: INSULIN ASPART [NOVOLOG] 3 ML PEN SC SCH ×3 (05:54→22:00)
[2019-07-05] MEDS: HYDROCORTISONE 100 MG INJ IV SCH ×3 (05:54→21:32)
[2019-07-05] MEDS: [UNRECOGNIZED DRUG - OTHER] XX SCH ×3 (06:30→22:30)
[2019-07-05] MEDS: LEVALBUTEROL (HFA) 15 GM INHALER INH SCH ×3 (08:00→23:49)
[2019-07-05] MEDS: IPRATROPIUM (HFA) 12.9 GM INHALER INH SCH ×3 (08:53→23:49)
[2019-07-05] MEDS: MULTIVITAMINS 30 ML CUP GTB SCH (10:10)
[2019-07-05] MEDS: ZYVOX 600 MG TAB GTB SCH ×2 (10:11→21:05)
[2019-07-05] MEDS: LORATADINE 10 MG TAB PO SCH (10:11)
[2019-07-05] MEDS: ASCORBIC ACID 500 MG TAB GTB SCH (10:11)
[2019-07-05] MEDS: GABAPENTIN 300 MG CAP GTB SCH ×2 (10:11→21:06)
[2019-07-05] MEDS: DESMOPRESSIN 4 MCG INJ SC SCH ×2 (10:12→21:31)
[2019-07-05] MEDS: QUETIAPINE 25 MG TAB GTB SCH ×3 (10:12→21:05)
[2019-07-05] MEDS: METOPROLOL 25 MG TAB PO SCH ×2 (10:12→21:05)
[2019-07-05] MEDS: SACCHAROMYCES BOULARDII 250 MG CAP PO SCH ×2 (10:12→21:05)
[2019-07-05] MEDS: INSULIN GLARGINE [LANTus] (100 UNITS/ML) SYG SC SCH (10:12)
[2019-07-05] MEDS: HYDROCORTISONE 1% 28.35 GM OINT TOP SCH ×3 (10:15→21:09)
[2019-07-05] MEDS: COLLAGENASE 5 GM (UD JAR) TOP SCH ×2 (10:15→21:08)
[2019-07-05] MEDS: VALPROIC ACID LIQUID CUP 250 MG/5 ML CUP PO SCH ×2 (11:51→15:23)
[2019-07-05] MEDS: MEROPENEM 1 GM/50ML(PMX) 50 ML IVPB SCH (21:04)
[2019-07-05] MEDS: VALPROIC ACID 250 MG CAP PO SCH (21:05)
[2019-07-06] VITALS (25 sets, daily range): BP systolic 125–164; BP diastolic 62–101; PULSE 65–96; RESP 12–25
[2019-07-06] MEDS: HYDROCORTISONE 100 MG INJ IV SCH ×3 (05:47→21:34)
[2019-07-06] MEDS: INSULIN ASPART [NOVOLOG] 3 ML PEN SC SCH ×3 (06:00→22:00)
[2019-07-06] MEDS: [UNRECOGNIZED DRUG - OTHER] XX SCH ×3 (06:30→22:30)
[2019-07-06] MEDS: LEVALBUTEROL (HFA) 15 GM INHALER INH SCH ×3 (08:52→23:15)
[2019-07-06] MEDS: IPRATROPIUM (HFA) 12.9 GM INHALER INH SCH ×3 (08:52→23:15)
[2019-07-06] MEDS: POTASSIUM CHLORIDE 100 ML IVPB SCH ×3 (09:52→15:45)
[2019-07-06] MEDS: MEROPENEM 1 GM/50ML(PMX) 50 ML IVPB SCH ×2 (09:52→21:18)
[2019-07-06] MEDS: MULTIVITAMINS 30 ML CUP GTB SCH (09:53)
[2019-07-06] MEDS: ASCORBIC ACID 500 MG TAB GTB SCH (09:54)
[2019-07-06] MEDS: SACCHAROMYCES BOULARDII 250 MG CAP PO SCH ×2 (09:54→21:17)
[2019-07-06] MEDS: LORATADINE 10 MG TAB PO SCH (09:54)
[2019-07-06] MEDS: QUETIAPINE 25 MG TAB GTB SCH ×3 (09:54→21:17)
[2019-07-06] MEDS: GABAPENTIN 300 MG CAP GTB SCH ×2 (09:55→21:17)
[2019-07-06] MEDS: METOPROLOL 25 MG TAB PO SCH ×2 (09:55→21:18)
[2019-07-06] MEDS: ZYVOX 600 MG TAB GTB SCH ×2 (09:55→21:17)
[2019-07-06] MEDS: DESMOPRESSIN 4 MCG INJ SC SCH ×2 (09:56→21:19)
[2019-07-06] MEDS: HYDROCORTISONE 1% 28.35 GM OINT TOP SCH ×3 (09:56→21:19)
[2019-07-06] MEDS: COLLAGENASE 5 GM (UD JAR) TOP SCH ×2 (09:56→21:19)
[2019-07-06] MEDS: VALPROIC ACID LIQUID CUP 250 MG/5 ML CUP PO SCH ×2 (10:18→13:05)
[2019-07-06] MEDS: INSULIN GLARGINE [LANTus] (100 UNITS/ML) SYG SC SCH (13:33)
[2019-07-06] MEDS: VALPROIC ACID 250 MG CAP PO SCH (21:17)
[2019-07-06] MEDS: metroNIDAZOLE 500 MG TAB PO SCH (21:34)
[2019-07-07] VITALS (23 sets, daily range): BP systolic 118–148; BP diastolic 62–87; PULSE 77–104; RESP 12–21
[2019-07-07] MEDS: POTASSIUM CHLORIDE 100 ML IVPB SCH (01:48)
[2019-07-07] MEDS: metroNIDAZOLE 500 MG TAB PO SCH ×3 (05:36→22:07)
[2019-07-07] MEDS: HYDROCORTISONE 100 MG INJ IV SCH ×3 (05:36→22:07)
[2019-07-07] MEDS: INSULIN ASPART [NOVOLOG] 3 ML PEN SC SCH ×3 (06:00→22:32)
[2019-07-07] MEDS: IPRATROPIUM (HFA) 12.9 GM INHALER INH SCH ×3 (07:30→23:49)
[2019-07-07] MEDS: LEVALBUTEROL (HFA) 15 GM INHALER INH SCH ×3 (07:31→23:49)
[2019-07-07] MEDS: [UNRECOGNIZED DRUG - OTHER] XX SCH ×3 (07:38→22:30)
[2019-07-07] MEDS: ZYVOX 600 MG TAB GTB SCH ×2 (08:58→20:37)
[2019-07-07] MEDS: MEROPENEM 1 GM/50ML(PMX) 50 ML IVPB SCH ×2 (08:58→20:37)
[2019-07-07] MEDS: DESMOPRESSIN 4 MCG INJ SC SCH ×2 (08:58→20:38)
[2019-07-07] MEDS: LORATADINE 10 MG TAB PO SCH (08:59)
[2019-07-07] MEDS: ASCORBIC ACID 500 MG TAB GTB SCH (08:59)
[2019-07-07] MEDS: QUETIAPINE 25 MG TAB GTB SCH ×3 (08:59→20:37)
[2019-07-07] MEDS: COLLAGENASE 5 GM (UD JAR) TOP SCH ×2 (08:59→20:38)
[2019-07-07] MEDS: GABAPENTIN 300 MG CAP GTB SCH ×2 (08:59→20:37)
[2019-07-07] MEDS: HYDROCORTISONE 1% 28.35 GM OINT TOP SCH ×3 (08:59→20:39)
[2019-07-07] MEDS: SACCHAROMYCES BOULARDII 250 MG CAP PO SCH ×2 (08:59→20:38)
[2019-07-07] MEDS: MULTIVITAMINS 30 ML CUP GTB SCH (08:59)
[2019-07-07] MEDS: VALPROIC ACID LIQUID CUP 250 MG/5 ML CUP PO SCH ×2 (09:02→11:55)
[2019-07-07] MEDS: METOPROLOL 25 MG TAB PO SCH ×2 (09:02→21:37)
[2019-07-07] MEDS: INSULIN GLARGINE [LANTus] (100 UNITS/ML) SYG SC SCH (09:17)
[2019-07-07] MEDS: VALPROIC ACID 250 MG CAP PO SCH (20:38)
[2019-07-08] VITALS (25 sets, daily range): BP systolic 100–166; BP diastolic 60–105; PULSE 72–108; RESP 12–21
[2019-07-08] MEDS ORDERED: POTASSIUM CHLORIDE (SR) 20 MEQ TAB PO ONE (00:25)
[2019-07-08] MEDS: INSULIN ASPART [NOVOLOG] 3 ML PEN SC SCH ×3 (06:00→21:01)
[2019-07-08] MEDS: HYDROCORTISONE 100 MG INJ IV SCH ×3 (06:25→21:00)
[2019-07-08] MEDS: metroNIDAZOLE 500 MG TAB PO SCH ×3 (06:25→21:01)
[2019-07-08] MEDS: [UNRECOGNIZED DRUG - OTHER] XX SCH ×3 (06:30→22:30)
[2019-07-08] MEDS: LEVALBUTEROL (HFA) 15 GM INHALER INH SCH ×3 (07:21→23:34)
[2019-07-08] MEDS: IPRATROPIUM (HFA) 12.9 GM INHALER INH SCH ×3 (07:21→23:34)
[2019-07-08] MEDS: DESMOPRESSIN 4 MCG INJ SC SCH (08:52)
[2019-07-08] MEDS: GABAPENTIN 300 MG CAP GTB SCH ×2 (08:53→20:38)
[2019-07-08] MEDS: LORATADINE 10 MG TAB PO SCH (08:53)
[2019-07-08] MEDS: SACCHAROMYCES BOULARDII 250 MG CAP PO SCH ×2 (08:53→20:37)
[2019-07-08] MEDS: MEROPENEM 1 GM/50ML(PMX) 50 ML IVPB SCH ×2 (08:53→20:37)
[2019-07-08] MEDS: COLLAGENASE 5 GM (UD JAR) TOP SCH ×2 (08:53→20:38)
[2019-07-08] MEDS: ASCORBIC ACID 500 MG TAB GTB SCH (08:53)
[2019-07-08] MEDS: QUETIAPINE 25 MG TAB GTB SCH ×3 (08:53→20:37)
[2019-07-08] MEDS: ZYVOX 600 MG TAB GTB SCH ×2 (08:53→20:37)
[2019-07-08] MEDS: MULTIVITAMINS 30 ML CUP GTB SCH (08:53)
[2019-07-08] MEDS: HYDROCORTISONE 1% 28.35 GM OINT TOP SCH ×3 (08:54→20:38)
[2019-07-08] MEDS: METOPROLOL 25 MG TAB PO SCH ×2 (08:54→20:37)
[2019-07-08] MEDS: VALPROIC ACID LIQUID CUP 250 MG/5 ML CUP PO SCH ×2 (08:58→11:42)
[2019-07-08] MEDS: INSULIN GLARGINE [LANTus] (100 UNITS/ML) SYG SC SCH (10:05)
[2019-07-08] MEDS: VALPROIC ACID 250 MG CAP PO SCH (20:38)
[2019-07-08] MEDS: LORAZEPAM 2 MG INJ IV PRN (20:38)
[2019-07-09] VITALS (20 sets, daily range): BP systolic 97–149; BP diastolic 52–83; PULSE 66–88; RESP 12–24
[2019-07-09] MEDS ORDERED: EPINEPHrine 0.1 MG/ML SYG ONE
[2019-07-09] MEDS: INSULIN ASPART [NOVOLOG] 3 ML PEN SC SCH ×3 (06:00→22:00)
[2019-07-09] MEDS: HYDROCORTISONE 100 MG INJ IV SCH ×3 (06:11→22:24)
[2019-07-09] MEDS: metroNIDAZOLE 500 MG TAB PO SCH ×3 (06:11→22:25)
[2019-07-09] MEDS: [UNRECOGNIZED DRUG - OTHER] XX SCH (06:30)
[2019-07-09] MEDS: IPRATROPIUM (HFA) 12.9 GM INHALER INH SCH ×3 (07:53→23:37)
[2019-07-09] MEDS: LEVALBUTEROL (HFA) 15 GM INHALER INH SCH ×3 (07:54→23:37)
[2019-07-09] MEDS: LORAZEPAM 2 MG INJ IV PRN ×2 (09:41→13:44)
[2019-07-09] MEDS: COLLAGENASE 5 GM (UD JAR) TOP SCH ×2 (10:11→21:09)
[2019-07-09] MEDS: MULTIVITAMINS 30 ML CUP GTB SCH (10:12)
[2019-07-09] MEDS: GABAPENTIN 300 MG CAP GTB SCH ×2 (10:13→21:08)
[2019-07-09] MEDS: METOPROLOL 25 MG TAB PO SCH ×2 (10:13→21:12)
[2019-07-09] MEDS: VALPROIC ACID LIQUID CUP 250 MG/5 ML CUP PO SCH ×2 (10:13→12:56)
[2019-07-09] MEDS: ZYVOX 600 MG TAB GTB SCH ×2 (10:13→21:08)
[2019-07-09] MEDS: MEROPENEM 1 GM/50ML(PMX) 50 ML IVPB SCH ×2 (10:13→21:09)
[2019-07-09] MEDS: SACCHAROMYCES BOULARDII 250 MG CAP PO SCH ×2 (10:14→21:09)
[2019-07-09] MEDS: ASCORBIC ACID 500 MG TAB GTB SCH (10:14)
[2019-07-09] MEDS: QUETIAPINE 25 MG TAB GTB SCH ×3 (10:14→21:09)
[2019-07-09] MEDS: LORATADINE 10 MG TAB PO SCH (10:14)
[2019-07-09] MEDS: hydrOXYzine HCL 10 MG TAB GTB PRN (10:14)
[2019-07-09] MEDS: HYDROCORTISONE 1% 28.35 GM OINT TOP SCH ×3 (10:15→21:14)
[2019-07-09] MEDS: INSULIN GLARGINE [LANTus] (100 UNITS/ML) SYG SC SCH (10:39)
[2019-07-09] MEDS: VALPROIC ACID 250 MG CAP PO SCH (21:09)
[2019-07-10] VITALS (54 sets, daily range): BP systolic 49–231; BP diastolic 20–127; PULSE 62–154; RESP 12–25
[2019-07-10] MEDS: INSULIN ASPART [NOVOLOG] 3 ML PEN SC SCH ×3 (06:00→21:52)
[2019-07-10] MEDS: metroNIDAZOLE 500 MG TAB PO SCH (06:34)
[2019-07-10] MEDS: HYDROCORTISONE 100 MG INJ IV SCH ×3 (06:34→21:20)
[2019-07-10] MEDS: LEVALBUTEROL (HFA) 15 GM INHALER INH SCH ×3 (07:40→23:23)
[2019-07-10] MEDS: IPRATROPIUM (HFA) 12.9 GM INHALER INH SCH ×3 (07:40→23:23)
[2019-07-10] MEDS: MEROPENEM 1 GM/50ML(PMX) 50 ML IVPB SCH ×2 (08:36→21:19)
[2019-07-10] MEDS: QUETIAPINE 25 MG TAB GTB SCH ×3 (08:36→21:19)
[2019-07-10] MEDS: MULTIVITAMINS 30 ML CUP GTB SCH (08:37)
[2019-07-10] MEDS: HYDROCORTISONE 1% 28.35 GM OINT TOP SCH ×3 (08:37→21:00)
[2019-07-10] MEDS: COLLAGENASE 5 GM (UD JAR) TOP SCH ×2 (08:37→21:20)
[2019-07-10] MEDS: SACCHAROMYCES BOULARDII 250 MG CAP PO SCH ×2 (08:37→21:19)
[2019-07-10] MEDS: LORATADINE 10 MG TAB PO SCH (08:37)
[2019-07-10] MEDS: GABAPENTIN 300 MG CAP GTB SCH ×2 (08:37→21:19)
[2019-07-10] MEDS: ZYVOX 600 MG TAB GTB SCH ×2 (08:37→21:19)
[2019-07-10] MEDS: ASCORBIC ACID 500 MG TAB GTB SCH (08:37)
[2019-07-10] MEDS: METOPROLOL 25 MG TAB PO SCH ×2 (08:38→21:00)
[2019-07-10] MEDS: VALPROIC ACID LIQUID CUP 250 MG/5 ML CUP PO SCH ×2 (08:44→12:15)
[2019-07-10] MEDS: INSULIN GLARGINE [LANTus] (100 UNITS/ML) SYG SC SCH (08:53)
[2019-07-10] MEDS ORDERED: POTASSIUM CHLORIDE 100 ML IVPB STA ×2 (10:08→16:56)
[2019-07-10] MEDS ORDERED: DESMOPRESSIN 0.1 MG TAB PEG SCH (10:30)
[2019-07-10] MEDS: D5W + KCL 20 MEQ 1,000 ML IV SCH ×2 (12:15→17:38)
[2019-07-10] MEDS ORDERED: NORepinephrine 8MG/250 ML (PMX 250 ML IV SCH (15:00)
[2019-07-10] MEDS ORDERED: PHENYLephrine 20MG IN 250 ML 250 ML IV SCH ×2 (15:30→17:00)
[2019-07-10] MEDS ORDERED: LACTATED RINGER'S 1,000 ML IV ONE (16:00)
[2019-07-10] MEDS: NORepinephrine 8MG/250 ML (PMX 250 ML IV SCH ×2 (16:54→20:28)
[2019-07-10] MEDS ORDERED: DESMOPRESSIN 4 MCG INJ SC STA (16:55)
[2019-07-10] MEDS: metroNIDAZOLE 500 MG/NS (PMX) 100 ML IVPB SCH ×2 (17:36→22:19)
[2019-07-10] MEDS: VALPROIC ACID 250 MG CAP PO SCH (21:20)
[2019-07-10] MEDS: ACETAMINOPHEN 650MG/20.3ML CUP GTB PRN (22:18)
[2019-07-10] MEDS: DESMOPRESSIN 4 MCG INJ SC SCH (22:19)
[2019-07-11] VITALS (103 sets, daily range): BP systolic 52–204; BP diastolic 34–119; PULSE 81–114; RESP 12–28
[2019-07-11] MEDS: NORepinephrine 8MG/250 ML (PMX 250 ML IV SCH ×3 (01:47→21:11)
[2019-07-11] MEDS: ACETAMINOPHEN 650MG/20.3ML CUP GTB PRN ×2 (02:18→20:57)
[2019-07-11] MEDS: HYDROCORTISONE 100 MG INJ IV SCH ×3 (05:54→21:04)
[2019-07-11] MEDS: metroNIDAZOLE 500 MG/NS (PMX) 100 ML IVPB SCH ×3 (05:59→21:05)
[2019-07-11] MEDS: IPRATROPIUM (HFA) 12.9 GM INHALER INH SCH ×3 (07:49→23:40)
[2019-07-11] MEDS: LEVALBUTEROL (HFA) 15 GM INHALER INH SCH ×3 (07:50→23:40)
[2019-07-11] MEDS ORDERED: POTASSIUM CHLORIDE 100 ML IVPB ONE (08:00)
[2019-07-11] MEDS: MEROPENEM 1 GM/50ML(PMX) 50 ML IVPB SCH ×2 (08:51→20:29)
[2019-07-11] MEDS: D5W + KCL 20 MEQ 1,000 ML IV SCH ×2 (08:51→20:53)
[2019-07-11] MEDS: SACCHAROMYCES BOULARDII 250 MG CAP PO SCH ×2 (08:53→20:40)
[2019-07-11] MEDS: QUETIAPINE 25 MG TAB GTB SCH ×3 (08:53→20:38)
[2019-07-11] MEDS: MULTIVITAMINS 30 ML CUP GTB SCH (08:53)
[2019-07-11] MEDS: GABAPENTIN 300 MG CAP GTB SCH ×2 (08:54→20:36)
[2019-07-11] MEDS: LORATADINE 10 MG TAB PO SCH (08:54)
[2019-07-11] MEDS: ZYVOX 600 MG TAB GTB SCH ×2 (08:54→20:39)
[2019-07-11] MEDS: ASCORBIC ACID 500 MG TAB GTB SCH (08:54)
[2019-07-11] MEDS: DESMOPRESSIN 4 MCG INJ SC SCH ×2 (08:55→20:55)
[2019-07-11] MEDS: METOPROLOL 25 MG TAB PO SCH ×2 (08:55→20:08)
[2019-07-11] MEDS: COLLAGENASE 5 GM (UD JAR) TOP SCH ×2 (08:55→20:28)
[2019-07-11] MEDS: INSULIN GLARGINE [LANTus] (100 UNITS/ML) SYG SC SCH (09:08)
[2019-07-11] MEDS: INSULIN ASPART [NOVOLOG] 3 ML PEN SC SCH ×3 (09:19→21:11)
[2019-07-11] MEDS: VALPROIC ACID LIQUID CUP 250 MG/5 ML CUP PO SCH ×2 (09:24→14:38)
[2019-07-11] MEDS: HYDROCORTISONE 1% 28.35 GM OINT TOP SCH ×3 (13:30→20:56)
[2019-07-11] MEDS: VALPROIC ACID 250 MG CAP PO SCH (20:38)
[2019-07-12] VITALS (62 sets, daily range): BP systolic 87–135; BP diastolic 45–78; PULSE 63–94; RESP 15–26
[2019-07-12] MEDS: metroNIDAZOLE 500 MG/NS (PMX) 100 ML IVPB SCH ×3 (05:51→22:06)
[2019-07-12] MEDS: HYDROCORTISONE 100 MG INJ IV SCH ×3 (05:52→22:07)
[2019-07-12] MEDS: INSULIN ASPART [NOVOLOG] 3 ML PEN SC SCH ×3 (05:52→22:00)
[2019-07-12] MEDS: LEVALBUTEROL (HFA) 15 GM INHALER INH SCH ×3 (08:08→23:36)
[2019-07-12] MEDS: IPRATROPIUM (HFA) 12.9 GM INHALER INH SCH ×3 (08:08→23:36)
[2019-07-12] MEDS: MEROPENEM 1 GM/50ML(PMX) 50 ML IVPB SCH ×2 (08:49→20:43)
[2019-07-12] MEDS: MULTIVITAMINS 30 ML CUP GTB SCH (08:50)
[2019-07-12] MEDS: VALPROIC ACID LIQUID CUP 250 MG/5 ML CUP PO SCH ×2 (08:50→13:16)
[2019-07-12] MEDS: COLLAGENASE 5 GM (UD JAR) TOP SCH ×2 (08:50→20:45)
[2019-07-12] MEDS: D5W + KCL 20 MEQ 1,000 ML IV SCH ×2 (08:50→22:06)
[2019-07-12] MEDS: ZYVOX 600 MG TAB GTB SCH ×2 (08:51→20:44)
[2019-07-12] MEDS: LORATADINE 10 MG TAB PO SCH (08:51)
[2019-07-12] MEDS: SACCHAROMYCES BOULARDII 250 MG CAP PO SCH ×2 (08:51→20:43)
[2019-07-12] MEDS: GABAPENTIN 300 MG CAP GTB SCH ×2 (08:51→20:45)
[2019-07-12] MEDS: DESMOPRESSIN 4 MCG INJ SC SCH ×2 (08:52→20:45)
[2019-07-12] MEDS: METOPROLOL 25 MG TAB PO SCH ×2 (08:52→20:44)
[2019-07-12] MEDS: ASCORBIC ACID 500 MG TAB GTB SCH (08:52)
[2019-07-12] MEDS: QUETIAPINE 25 MG TAB GTB SCH ×3 (08:52→20:44)
[2019-07-12] MEDS: HYDROCORTISONE 1% 28.35 GM OINT TOP SCH ×3 (08:53→20:45)
[2019-07-12] MEDS: INSULIN GLARGINE [LANTus] (100 UNITS/ML) SYG SC SCH (08:54)
[2019-07-12] MEDS ORDERED: FENTAnyl 50 MCG/ML VIAL IV PRN (11:30)
[2019-07-12] MEDS: VALPROIC ACID 250 MG CAP PO SCH (20:44)
[2019-07-13] VITALS (30 sets, daily range): BP systolic 93–132; BP diastolic 51–88; PULSE 66–85; RESP 16–22
[2019-07-13] MEDS: HYDROCORTISONE 100 MG INJ IV SCH ×3 (05:57→21:27)
[2019-07-13] MEDS: metroNIDAZOLE 500 MG/NS (PMX) 100 ML IVPB SCH ×3 (05:57→21:27)
[2019-07-13] MEDS: INSULIN ASPART [NOVOLOG] 3 ML PEN SC SCH ×3 (06:00→21:28)
[2019-07-13] MEDS: LEVALBUTEROL (HFA) 15 GM INHALER INH SCH ×3 (07:28→23:39)
[2019-07-13] MEDS: IPRATROPIUM (HFA) 12.9 GM INHALER INH SCH ×3 (07:28→23:39)
[2019-07-13] MEDS: MULTIVITAMINS 30 ML CUP GTB SCH (08:43)
[2019-07-13] MEDS: LORATADINE 10 MG TAB PO SCH (08:44)
[2019-07-13] MEDS: GABAPENTIN 300 MG CAP GTB SCH ×2 (08:44→21:00)
[2019-07-13] MEDS: QUETIAPINE 25 MG TAB GTB SCH ×3 (08:44→21:01)
[2019-07-13] MEDS: SACCHAROMYCES BOULARDII 250 MG CAP PO SCH ×2 (08:44→21:02)
[2019-07-13] MEDS: VALPROIC ACID LIQUID CUP 250 MG/5 ML CUP PO SCH ×2 (08:44→12:33)
[2019-07-13] MEDS: COLLAGENASE 5 GM (UD JAR) TOP SCH ×2 (08:45→21:03)
[2019-07-13] MEDS: MEROPENEM 1 GM/50ML(PMX) 50 ML IVPB SCH ×2 (08:45→21:01)
[2019-07-13] MEDS: METOPROLOL 25 MG TAB PO SCH ×2 (08:45→21:02)
[2019-07-13] MEDS: ZYVOX 600 MG TAB GTB SCH ×2 (08:45→21:01)
[2019-07-13] MEDS: ASCORBIC ACID 500 MG TAB GTB SCH (08:45)
[2019-07-13] MEDS: HYDROCORTISONE 1% 28.35 GM OINT TOP SCH ×3 (08:46→21:04)
[2019-07-13] MEDS: INSULIN GLARGINE [LANTus] (100 UNITS/ML) SYG SC SCH (08:47)
[2019-07-13] MEDS ORDERED: DESMOPRESSIN 4 MCG INJ SC SCH ×2 (12:00→12:30)
[2019-07-13] MEDS ORDERED: IVERMECTIN 3 MG TAB PO ONE (14:30)
[2019-07-13] MEDS: VALPROIC ACID 250 MG CAP PO SCH (21:01)
[2019-07-13] MEDS: DESMOPRESSIN 4 MCG INJ SC SCH (21:03)
[2019-07-13] MEDS: ACETAMINOPHEN 650MG/20.3ML CUP GTB PRN (21:29)
[2019-07-14] VITALS (17 sets, daily range): BP systolic 118–133; BP diastolic 59–69; PULSE 76–81; RESP 17–23
[2019-07-14] MEDS: ACETAMINOPHEN 650MG/20.3ML CUP GTB PRN (03:31)
[2019-07-14] MEDS: INSULIN ASPART [NOVOLOG] 3 ML PEN SC SCH ×3 (06:00→22:00)
[2019-07-14] MEDS: HYDROCORTISONE 100 MG INJ IV SCH ×3 (06:44→22:26)
[2019-07-14] MEDS: metroNIDAZOLE 500 MG/NS (PMX) 100 ML IVPB SCH ×3 (06:45→22:27)
[2019-07-14] MEDS: IPRATROPIUM (HFA) 12.9 GM INHALER INH SCH ×3 (08:33→23:14)
[2019-07-14] MEDS: LEVALBUTEROL (HFA) 15 GM INHALER INH SCH ×3 (08:33→23:14)
[2019-07-14] MEDS: ASCORBIC ACID 500 MG TAB GTB SCH (08:55)
[2019-07-14] MEDS: METOPROLOL 25 MG TAB PO SCH ×2 (08:55→22:26)
[2019-07-14] MEDS: GABAPENTIN 300 MG CAP GTB SCH ×2 (08:55→22:23)
[2019-07-14] MEDS: LORATADINE 10 MG TAB PO SCH (08:56)
[2019-07-14] MEDS: SACCHAROMYCES BOULARDII 250 MG CAP PO SCH ×2 (08:56→23:01)
[2019-07-14] MEDS: QUETIAPINE 25 MG TAB GTB SCH ×3 (08:56→22:23)
[2019-07-14] MEDS: MULTIVITAMINS 30 ML CUP GTB SCH (08:56)
[2019-07-14] MEDS: ZYVOX 600 MG TAB GTB SCH ×2 (08:56→22:25)
[2019-07-14] MEDS: HYDROCORTISONE 1% 28.35 GM OINT TOP SCH ×3 (08:57→22:52)
[2019-07-14] MEDS: DESMOPRESSIN 4 MCG INJ SC SCH ×2 (08:57→23:02)
[2019-07-14] MEDS: COLLAGENASE 5 GM (UD JAR) TOP SCH ×2 (08:58→22:27)
[2019-07-14] MEDS: MEROPENEM 1 GM/50ML(PMX) 50 ML IVPB SCH ×2 (08:58→22:27)
[2019-07-14] MEDS: VALPROIC ACID LIQUID CUP 250 MG/5 ML CUP PO SCH ×2 (08:58→12:07)
[2019-07-14] MEDS: INSULIN GLARGINE [LANTus] (100 UNITS/ML) SYG SC SCH (09:49)
[2019-07-14] MEDS: VALPROIC ACID 250 MG CAP PO SCH (22:23)
[2019-07-15] VITALS (18 sets, daily range): BP systolic 109–137; BP diastolic 68–77; PULSE 78–95; RESP 14–24
[2019-07-15] MEDS: HYDROCORTISONE 100 MG INJ IV SCH ×3 (05:42→22:01)
[2019-07-15] MEDS: metroNIDAZOLE 500 MG/NS (PMX) 100 ML IVPB SCH ×3 (05:43→22:02)
[2019-07-15] MEDS: INSULIN ASPART [NOVOLOG] 3 ML PEN SC SCH ×3 (05:57→22:00)
[2019-07-15] MEDS: MULTIVITAMINS 30 ML CUP GTB SCH (08:51)
[2019-07-15] MEDS: VALPROIC ACID LIQUID CUP 250 MG/5 ML CUP PO SCH ×2 (08:51→12:03)
[2019-07-15] MEDS: GABAPENTIN 300 MG CAP GTB SCH ×2 (08:52→22:03)
[2019-07-15] MEDS: MEROPENEM 1 GM/50ML(PMX) 50 ML IVPB SCH ×2 (08:52→22:02)
[2019-07-15] MEDS: DESMOPRESSIN 4 MCG INJ SC SCH ×2 (08:52→22:04)
[2019-07-15] MEDS: COLLAGENASE 5 GM (UD JAR) TOP SCH ×2 (08:52→22:01)
[2019-07-15] MEDS: QUETIAPINE 25 MG TAB GTB SCH ×3 (08:53→22:49)
[2019-07-15] MEDS: ASCORBIC ACID 500 MG TAB GTB SCH (08:53)
[2019-07-15] MEDS: LORATADINE 10 MG TAB PO SCH (08:53)
[2019-07-15] MEDS: METOPROLOL 25 MG TAB PO SCH ×2 (08:53→22:03)
[2019-07-15] MEDS: ZYVOX 600 MG TAB GTB SCH ×2 (08:53→22:02)
[2019-07-15] MEDS: SACCHAROMYCES BOULARDII 250 MG CAP PO SCH ×2 (08:53→22:49)
[2019-07-15] MEDS: HYDROCORTISONE 1% 28.35 GM OINT TOP SCH ×3 (08:59→22:03)
[2019-07-15] MEDS: INSULIN GLARGINE [LANTus] (100 UNITS/ML) SYG SC SCH (09:12)
[2019-07-15] MEDS: IPRATROPIUM (HFA) 12.9 GM INHALER INH SCH ×2 (09:14→16:05)
[2019-07-15] MEDS: LEVALBUTEROL (HFA) 15 GM INHALER INH SCH ×2 (09:14→16:06)
[2019-07-15] MEDS ORDERED: POTASSIUM CHLORIDE (SR) 20 MEQ TAB PO STA (10:18)
[2019-07-15] MEDS ORDERED: POTASSIUM CHLORIDE 20 MEQ POWDER FOR ORAL SOLN GTB ONE (16:30)
[2019-07-15] MEDS: POTASSIUM CHLORIDE 100 ML IVPB SCH ×3 (16:39→22:47)
[2019-07-15] MEDS: POTASSIUM CHLORIDE 20 MEQ POWDER FOR ORAL SOLN PO SCH (22:06)
[2019-07-15] MEDS: VALPROIC ACID 250 MG CAP PO SCH (22:49)
[2019-07-16] VITALS (17 sets, daily range): BP systolic 100–145; BP diastolic 53–75; PULSE 71–90; RESP 15–22
[2019-07-16] MEDS: POTASSIUM CHLORIDE 100 ML IVPB SCH (01:23)
[2019-07-16] MEDS: LEVALBUTEROL (HFA) 15 GM INHALER INH SCH ×4 (01:57→23:56)
[2019-07-16] MEDS: IPRATROPIUM (HFA) 12.9 GM INHALER INH SCH ×4 (01:58→23:56)
[2019-07-16] MEDS: INSULIN ASPART [NOVOLOG] 3 ML PEN SC SCH ×3 (06:00→22:00)
[2019-07-16] MEDS: HYDROCORTISONE 100 MG INJ IV SCH ×3 (06:06→22:18)
[2019-07-16] MEDS: metroNIDAZOLE 500 MG/NS (PMX) 100 ML IVPB SCH ×3 (06:07→22:19)
[2019-07-16] MEDS: COLLAGENASE 5 GM (UD JAR) TOP SCH ×2 (10:45→22:20)
[2019-07-16] MEDS: MULTIVITAMINS 30 ML CUP GTB SCH (10:45)
[2019-07-16] MEDS: MEROPENEM 1 GM/50ML(PMX) 50 ML IVPB SCH (10:45)
[2019-07-16] MEDS: POTASSIUM CHLORIDE 20 MEQ POWDER FOR ORAL SOLN PO SCH ×3 (10:46→22:55)
[2019-07-16] MEDS: SACCHAROMYCES BOULARDII 250 MG CAP PO SCH ×2 (10:46→22:16)
[2019-07-16] MEDS: ACETAMINOPHEN 650MG/20.3ML CUP GTB PRN (10:46)
[2019-07-16] MEDS: QUETIAPINE 25 MG TAB GTB SCH ×3 (10:47→22:13)
[2019-07-16] MEDS: DESMOPRESSIN 4 MCG INJ SC SCH ×2 (10:47→22:18)
[2019-07-16] MEDS: ZYVOX 600 MG TAB GTB SCH (10:48)
[2019-07-16] MEDS: ASCORBIC ACID 500 MG TAB GTB SCH (10:48)
[2019-07-16] MEDS: METOPROLOL 25 MG TAB PO SCH ×2 (10:48→22:17)
[2019-07-16] MEDS: LORATADINE 10 MG TAB PO SCH (10:48)
[2019-07-16] MEDS: GABAPENTIN 300 MG CAP GTB SCH ×2 (10:49→22:17)
[2019-07-16] MEDS: HYDROCORTISONE 1% 28.35 GM OINT TOP SCH ×3 (10:49→22:20)
[2019-07-16] MEDS: VALPROIC ACID LIQUID CUP 250 MG/5 ML CUP PO SCH ×2 (10:57→13:48)
[2019-07-16] MEDS: INSULIN GLARGINE [LANTus] (100 UNITS/ML) SYG SC SCH (10:59)
[2019-07-16] MEDS: VALPROIC ACID 250 MG CAP PO SCH (22:13)
[2019-07-17] VITALS (18 sets, daily range): BP systolic 123–145; BP diastolic 62–71; PULSE 80–89; RESP 14–22
[2019-07-17] MEDS: PANTOPRAZOLE 40 MG INJ IV SCH (05:22)
[2019-07-17] MEDS: HYDROCORTISONE 100 MG INJ IV SCH ×3 (05:22→21:49)
[2019-07-17] MEDS: metroNIDAZOLE 500 MG/NS (PMX) 100 ML IVPB SCH ×3 (05:23→21:50)
[2019-07-17] MEDS: INSULIN ASPART [NOVOLOG] 3 ML PEN SC SCH ×4 (05:27→21:00)
[2019-07-17] MEDS: LEVALBUTEROL (HFA) 15 GM INHALER INH SCH ×2 (08:00→16:00)
[2019-07-17] MEDS: IPRATROPIUM (HFA) 12.9 GM INHALER INH SCH ×2 (08:00→16:00)
[2019-07-17] MEDS: DESMOPRESSIN 4 MCG INJ SC SCH ×2 (08:38→21:50)
[2019-07-17] MEDS: GABAPENTIN 300 MG CAP GTB SCH ×2 (08:38→21:49)
[2019-07-17] MEDS: COLLAGENASE 5 GM (UD JAR) TOP SCH ×2 (08:38→21:51)
[2019-07-17] MEDS: VALPROIC ACID LIQUID CUP 250 MG/5 ML CUP PO SCH ×2 (08:38→13:10)
[2019-07-17] MEDS: METOPROLOL 25 MG TAB PO SCH ×2 (08:39→21:48)
[2019-07-17] MEDS: ASCORBIC ACID 500 MG TAB GTB SCH (08:39)
[2019-07-17] MEDS: QUETIAPINE 25 MG TAB GTB SCH ×3 (08:39→21:48)
[2019-07-17] MEDS: POTASSIUM CHLORIDE 20 MEQ POWDER FOR ORAL SOLN PO SCH ×2 (08:39→21:47)
[2019-07-17] MEDS: LORATADINE 10 MG TAB PO SCH (08:39)
[2019-07-17] MEDS: SACCHAROMYCES BOULARDII 250 MG CAP PO SCH ×2 (08:39→21:48)
[2019-07-17] MEDS: MULTIVITAMINS 30 ML CUP GTB SCH (08:40)
[2019-07-17] MEDS: HYDROCORTISONE 1% 28.35 GM OINT TOP SCH ×3 (08:40→21:51)
[2019-07-17] MEDS: INSULIN GLARGINE [LANTus] (100 UNITS/ML) SYG SC SCH (12:00)
[2019-07-17] MEDS: DEXTROSE 50% 50 ML SYRINGE IV PRN ×2 (14:57→22:52)
[2019-07-17] MEDS: VALPROIC ACID 250 MG CAP PO SCH (21:49)
[2019-07-18] VITALS (18 sets, daily range): BP systolic 100–124; BP diastolic 56–66; PULSE 74–89; RESP 13–22
[2019-07-18] MEDS: ACCU-CHEK XX SCH (00:24)
[2019-07-18] MEDS: ACETAMINOPHEN 650MG/20.3ML CUP GTB PRN (00:39)
[2019-07-18] MEDS: LEVALBUTEROL (HFA) 15 GM INHALER INH SCH ×4 (01:01→23:59)
[2019-07-18] MEDS: IPRATROPIUM (HFA) 12.9 GM INHALER INH SCH ×4 (01:01→23:59)
[2019-07-18] MEDS: PANTOPRAZOLE 40 MG INJ IV SCH (05:36)
[2019-07-18] MEDS: HYDROCORTISONE 100 MG INJ IV SCH ×3 (05:36→21:57)
[2019-07-18] MEDS: metroNIDAZOLE 500 MG/NS (PMX) 100 ML IVPB SCH (05:36)
[2019-07-18] MEDS: INSULIN ASPART [NOVOLOG] 3 ML PEN SC SCH ×4 (08:00→22:10)
[2019-07-18] MEDS ORDERED: INSULIN GLARGINE [LANTus] (100 UNITS/ML) SYG SC SCH (08:00)
[2019-07-18] MEDS: MULTIVITAMINS 30 ML CUP GTB SCH (10:27)
[2019-07-18] MEDS: POTASSIUM CHLORIDE 20 MEQ POWDER FOR ORAL SOLN PO SCH ×2 (10:28→21:55)
[2019-07-18] MEDS: DESMOPRESSIN 4 MCG INJ SC SCH ×2 (10:28→21:58)
[2019-07-18] MEDS: COLLAGENASE 5 GM (UD JAR) TOP SCH ×2 (10:28→21:57)
[2019-07-18] MEDS: SACCHAROMYCES BOULARDII 250 MG CAP PO SCH ×2 (10:28→21:56)
[2019-07-18] MEDS: HYDROCORTISONE 1% 28.35 GM OINT TOP SCH ×3 (10:28→21:58)
[2019-07-18] MEDS: ASCORBIC ACID 500 MG TAB GTB SCH (10:30)
[2019-07-18] MEDS: GABAPENTIN 300 MG CAP GTB SCH ×2 (10:30→21:55)
[2019-07-18] MEDS: QUETIAPINE 25 MG TAB GTB SCH ×3 (10:30→21:57)
[2019-07-18] MEDS: METOPROLOL 25 MG TAB PO SCH ×2 (10:30→22:05)
[2019-07-18] MEDS: LORATADINE 10 MG TAB PO SCH (10:30)
[2019-07-18] MEDS: VALPROIC ACID LIQUID CUP 250 MG/5 ML CUP PO SCH ×2 (10:44→13:28)
[2019-07-18] MEDS: VALPROIC ACID 250 MG CAP PO SCH (21:56)
[2019-07-19] VITALS (20 sets, daily range): BP systolic 99–141; BP diastolic 55–92; PULSE 77–104; RESP 15–26
[2019-07-19] MEDS: ACCU-CHEK XX SCH (02:00)
[2019-07-19] MEDS: LANSOPRAZOLE (SOLTAB) 30 MG TAB PO SCH (05:25)
[2019-07-19] MEDS ORDERED: PANTOPRAZOLE (EC) 40 MG TAB PO SCH (06:00)
[2019-07-19] MEDS: INSULIN ASPART [NOVOLOG] 3 ML PEN SC SCH ×4 (08:00→21:00)
[2019-07-19] MEDS: IPRATROPIUM (HFA) 12.9 GM INHALER INH SCH ×3 (08:27→23:02)
[2019-07-19] MEDS: LEVALBUTEROL (HFA) 15 GM INHALER INH SCH ×3 (08:27→23:03)
[2019-07-19] MEDS: MULTIVITAMINS 30 ML CUP GTB SCH (09:40)
[2019-07-19] MEDS: COLLAGENASE 5 GM (UD JAR) TOP SCH ×2 (09:41→21:58)
[2019-07-19] MEDS: POTASSIUM CHLORIDE 20 MEQ POWDER FOR ORAL SOLN PO SCH ×2 (09:41→21:59)
[2019-07-19] MEDS: GABAPENTIN 300 MG CAP GTB SCH ×2 (09:41→22:02)
[2019-07-19] MEDS: ASCORBIC ACID 500 MG TAB GTB SCH (09:41)
[2019-07-19] MEDS: VALPROIC ACID LIQUID CUP 250 MG/5 ML CUP PO SCH ×2 (09:41→13:46)
[2019-07-19] MEDS: QUETIAPINE 25 MG TAB GTB SCH ×3 (09:41→22:02)
[2019-07-19] MEDS: SACCHAROMYCES BOULARDII 250 MG CAP PO SCH ×2 (09:41→21:59)
[2019-07-19] MEDS: LORATADINE 10 MG TAB PO SCH (09:41)
[2019-07-19] MEDS: HYDROCORTISONE 100 MG INJ IV SCH ×2 (09:42→21:58)
[2019-07-19] MEDS: METOPROLOL 25 MG TAB PO SCH ×2 (09:42→22:02)
[2019-07-19] MEDS: DESMOPRESSIN 4 MCG INJ SC SCH ×2 (09:43→22:03)
[2019-07-19] MEDS: HYDROCORTISONE 1% 28.35 GM OINT TOP SCH ×3 (09:44→21:00)
[2019-07-19] MEDS: ACETAMINOPHEN 650MG/20.3ML CUP GTB PRN ×2 (09:55→22:29)
[2019-07-19] MEDS: VALPROIC ACID 250 MG CAP PO SCH (22:02)
[2019-07-20] VITALS (17 sets, daily range): BP systolic 106–122; BP diastolic 53–59; PULSE 71–83; RESP 14–25
[2019-07-20] MEDS: ACCU-CHEK XX SCH (01:27)
[2019-07-20] MEDS: LORAZEPAM 2 MG INJ IV PRN (02:05)
[2019-07-20] MEDS: LANSOPRAZOLE (SOLTAB) 30 MG TAB PO SCH (05:27)
[2019-07-20] MEDS: INSULIN ASPART [NOVOLOG] 3 ML PEN SC SCH ×4 (08:00→21:00)
[2019-07-20] MEDS: DESMOPRESSIN 4 MCG INJ SC SCH ×2 (09:46→21:12)
[2019-07-20] MEDS: HYDROCORTISONE 100 MG INJ IV SCH ×2 (09:48→21:14)
[2019-07-20] MEDS: ASCORBIC ACID 500 MG TAB GTB SCH (09:51)
[2019-07-20] MEDS: MULTIVITAMINS 30 ML CUP GTB SCH (09:51)
[2019-07-20] MEDS: LORATADINE 10 MG TAB PO SCH (09:52)
[2019-07-20] MEDS: GABAPENTIN 300 MG CAP GTB SCH ×2 (09:53→21:08)
[2019-07-20] MEDS: SACCHAROMYCES BOULARDII 250 MG CAP PO SCH ×2 (09:53→21:07)
[2019-07-20] MEDS: METOPROLOL 25 MG TAB PO SCH ×2 (09:53→21:00)
[2019-07-20] MEDS: POTASSIUM CHLORIDE 20 MEQ POWDER FOR ORAL SOLN PO SCH ×2 (09:54→21:07)
[2019-07-20] MEDS: LEVALBUTEROL (HFA) 15 GM INHALER INH SCH ×4 (09:54→23:16)
[2019-07-20] MEDS: QUETIAPINE 25 MG TAB GTB SCH ×3 (09:54→21:08)
[2019-07-20] MEDS: IPRATROPIUM (HFA) 12.9 GM INHALER INH SCH ×4 (09:55→23:16)
[2019-07-20] MEDS: HYDROCORTISONE 1% 28.35 GM OINT TOP SCH ×3 (09:56→21:13)
[2019-07-20] MEDS: COLLAGENASE 5 GM (UD JAR) TOP SCH ×2 (09:56→21:07)
[2019-07-20] MEDS: VALPROIC ACID LIQUID CUP 250 MG/5 ML CUP PO SCH ×2 (09:59→14:15)
[2019-07-20] MEDS: VALPROIC ACID 250 MG CAP PO SCH (21:08)
[2019-07-21] VITALS (16 sets, daily range): BP systolic 103–131; BP diastolic 56–61; PULSE 75–85; RESP 14–19
[2019-07-21] MEDS: ACCU-CHEK XX SCH (01:13)
[2019-07-21] MEDS: LANSOPRAZOLE (SOLTAB) 30 MG TAB PO SCH (05:50)
[2019-07-21] MEDS: LEVALBUTEROL (HFA) 15 GM INHALER INH SCH ×3 (07:32→23:20)
[2019-07-21] MEDS: IPRATROPIUM (HFA) 12.9 GM INHALER INH SCH ×3 (07:33→23:20)
[2019-07-21] MEDS: COLLAGENASE 5 GM (UD JAR) TOP SCH ×2 (08:53→21:31)
[2019-07-21] MEDS: DESMOPRESSIN 4 MCG INJ SC SCH ×2 (08:53→21:33)
[2019-07-21] MEDS: INSULIN ASPART [NOVOLOG] 3 ML PEN SC SCH ×4 (08:53→21:00)
[2019-07-21] MEDS: HYDROCORTISONE 100 MG INJ IV SCH ×2 (08:53→21:31)
[2019-07-21] MEDS: MULTIVITAMINS 30 ML CUP GTB SCH (08:53)
[2019-07-21] MEDS: POTASSIUM CHLORIDE 20 MEQ POWDER FOR ORAL SOLN PO SCH ×2 (08:54→21:32)
[2019-07-21] MEDS: QUETIAPINE 25 MG TAB GTB SCH ×3 (08:54→21:32)
[2019-07-21] MEDS: SACCHAROMYCES BOULARDII 250 MG CAP PO SCH ×2 (08:54→21:32)
[2019-07-21] MEDS: LORATADINE 10 MG TAB PO SCH (08:54)
[2019-07-21] MEDS: METOPROLOL 25 MG TAB PO SCH ×2 (08:54→21:34)
[2019-07-21] MEDS: GABAPENTIN 300 MG CAP GTB SCH ×2 (08:55→21:32)
[2019-07-21] MEDS: ASCORBIC ACID 500 MG TAB GTB SCH (08:55)
[2019-07-21] MEDS: HYDROCORTISONE 1% 28.35 GM OINT TOP SCH ×3 (08:55→21:36)
[2019-07-21] MEDS: VALPROIC ACID LIQUID CUP 250 MG/5 ML CUP PO SCH ×2 (08:58→12:53)
[2019-07-21] MEDS: VALPROIC ACID 250 MG CAP PO SCH (21:32)
[2019-07-21] MEDS: ACETAMINOPHEN 650MG/20.3ML CUP GTB PRN (21:56)
[2019-07-22] VITALS (18 sets, daily range): BP systolic 98–145; BP diastolic 53–77; PULSE 70–85; RESP 14–20
[2019-07-22] MEDS: INSULIN ASPART [NOVOLOG] 3 ML PEN SC SCH ×6 (01:00→20:47)
[2019-07-22] MEDS: ACCU-CHEK XX SCH (01:32)
[2019-07-22] MEDS: LANSOPRAZOLE (SOLTAB) 30 MG TAB PO SCH (05:29)
[2019-07-22] MEDS: SACCHAROMYCES BOULARDII 250 MG CAP PO SCH ×2 (08:20→20:56)
[2019-07-22] MEDS: POTASSIUM CHLORIDE 20 MEQ POWDER FOR ORAL SOLN PO SCH ×2 (08:20→20:56)
[2019-07-22] MEDS: ASCORBIC ACID 500 MG TAB GTB SCH (08:20)
[2019-07-22] MEDS: QUETIAPINE 25 MG TAB GTB SCH ×3 (08:20→20:56)
[2019-07-22] MEDS: GABAPENTIN 300 MG CAP GTB SCH ×2 (08:20→20:55)
[2019-07-22] MEDS: LORATADINE 10 MG TAB PO SCH (08:20)
[2019-07-22] MEDS: DESMOPRESSIN 4 MCG INJ SC SCH ×2 (08:20→20:58)
[2019-07-22] MEDS: HYDROCORTISONE 100 MG INJ IV SCH ×2 (08:20→20:58)
[2019-07-22] MEDS: MULTIVITAMINS 30 ML CUP GTB SCH (08:21)
[2019-07-22] MEDS: METOPROLOL 25 MG TAB PO SCH ×2 (08:21→20:57)
[2019-07-22] MEDS: COLLAGENASE 5 GM (UD JAR) TOP SCH ×2 (08:22→20:57)
[2019-07-22] MEDS: HYDROCORTISONE 1% 28.35 GM OINT TOP SCH ×3 (08:22→20:58)
[2019-07-22] MEDS: VALPROIC ACID LIQUID CUP 250 MG/5 ML CUP PO SCH ×2 (08:22→13:01)
[2019-07-22] MEDS: IPRATROPIUM (HFA) 12.9 GM INHALER INH SCH ×2 (08:34→15:50)
[2019-07-22] MEDS: LEVALBUTEROL (HFA) 15 GM INHALER INH SCH ×3 (08:35→23:57)
[2019-07-22] MEDS: VALPROIC ACID 250 MG CAP PO SCH (20:55)
[2019-07-23] VITALS (11 sets, daily range): BP systolic 110–140; BP diastolic 57–63; PULSE 68–77; RESP 15–21
[2019-07-23] MEDS: INSULIN ASPART [NOVOLOG] 3 ML PEN SC SCH ×4 (01:00→13:00)
[2019-07-23] MEDS: ACCU-CHEK XX SCH (01:38)
[2019-07-23] MEDS: LANSOPRAZOLE (SOLTAB) 30 MG TAB PO SCH (05:45)
[2019-07-23] MEDS: IPRATROPIUM (HFA) 12.9 GM INHALER INH SCH ×2 (07:59)
[2019-07-23] MEDS: LEVALBUTEROL (HFA) 15 GM INHALER INH SCH (07:59)
[2019-07-23] MEDS: MULTIVITAMINS 30 ML CUP GTB SCH (09:18)
[2019-07-23] MEDS: COLLAGENASE 5 GM (UD JAR) TOP SCH (09:18)
[2019-07-23] MEDS: METOPROLOL 25 MG TAB PO SCH (09:18)
[2019-07-23] MEDS: SACCHAROMYCES BOULARDII 250 MG CAP PO SCH (09:19)
[2019-07-23] MEDS: ASCORBIC ACID 500 MG TAB GTB SCH (09:19)
[2019-07-23] MEDS: QUETIAPINE 25 MG TAB GTB SCH ×2 (09:19→13:22)
[2019-07-23] MEDS: LORATADINE 10 MG TAB PO SCH (09:19)
[2019-07-23] MEDS: HYDROCORTISONE 100 MG INJ IV SCH (09:19)
[2019-07-23] MEDS: GABAPENTIN 300 MG CAP GTB SCH (09:19)
[2019-07-23] MEDS: POTASSIUM CHLORIDE 20 MEQ POWDER FOR ORAL SOLN PO SCH (09:19)
[2019-07-23] MEDS: DESMOPRESSIN 4 MCG INJ SC SCH (09:20)
[2019-07-23] MEDS: HYDROCORTISONE 1% 28.35 GM OINT TOP SCH ×2 (09:21→13:22)
[2019-07-23] MEDS: VALPROIC ACID LIQUID CUP 250 MG/5 ML CUP PO SCH ×2 (09:43→13:20)
== END 2019-07-23 15:45 | DRG 853 ==
LOC: E/R 19:24 → TEL 19:37 → ICU 04-04 15:43 → 6WM 04-12 22:36 → ICU 04-22 19:11 → 6WM 04-27 13:10 → ICU 05-28 23:55 → 6WM 06-07 11:21 → ICU 06-30 15:50 → TEL 07-04 11:34 → ICU 07-10 14:20 → 6WM 07-13 13:09
PROVIDERS: ADMIT Internal Medicine; ATTEND Internal Medicine
PROC: 5A1955Z Respiratory Ventilation, Greater than 96 Consecutive Hours (ICD-10-PCS; 2019-03-19)
PROC: 02HV33Z Insertion of Infusion Device into Superior Vena Cava, Percutaneous Approach (ICD-10-PCS; 2019-03-19)
PROC: 0RSJXZZ Reposition Right Shoulder Joint, External Approach (ICD-10-PCS; 2019-03-21)
PROC: 0JB90ZZ Excision of Buttock Subcutaneous Tissue and Fascia, Open Approach (ICD-10-PCS; principal; 2019-03-21 11:30)
PROC: 30233N1 Transfusion of Nonautologous Red Blood Cells into Peripheral Vein, Percutaneous Approach (ICD-10-PCS; 2019-03-25)
PROC: 0DH63UZ Insertion of Feeding Device into Stomach, Percutaneous Approach (ICD-10-PCS; 2019-03-29)
PROC: 0HB8XZZ Excision of Buttock Skin, External Approach (ICD-10-PCS; 2019-04-06)
PROC: 02HV33Z Insertion of Infusion Device into Superior Vena Cava, Percutaneous Approach (ICD-10-PCS; 2019-06-01)
PROC: 06HM33Z Insertion of Infusion Device into Right Femoral Vein, Percutaneous Approach (ICD-10-PCS; 2019-06-30)
PROC: 02HV33Z Insertion of Infusion Device into Superior Vena Cava, Percutaneous Approach (ICD-10-PCS; 2019-07-10)
DX: A41.9 Sepsis, unspecified organism (principal); J69.0 Pneumonitis due to inhalation of food and vomit; R65.21 Severe sepsis with septic shock; I46.9 Cardiac arrest, cause unspecified; L02.31 Cutaneous abscess of buttock; K94.22 Gastrostomy infection; L03.311 Cellulitis of abdominal wall; N39.0 Urinary tract infection, site not specified; E87.0 Hyperosmolality and hypernatremia; N17.9 Acute kidney failure, unspecified; J90 Pleural effusion, not elsewhere classified; G93.40 Encephalopathy, unspecified; I13.0 Hypertensive heart and chronic kidney disease with heart failure and stage 1 through stage 4 chronic kidney disease, or unspecified chronic kidney disease; J96.10 Chronic respiratory failure, unspecified whether with hypoxia or hypercapnia; A04.72 Enterocolitis due to Clostridium difficile, not specified as recurrent; S43.084A Other dislocation of right shoulder joint, initial encounter; J84.10 Pulmonary fibrosis, unspecified; J44.9 Chronic obstructive pulmonary disease, unspecified; D64.9 Anemia, unspecified; I95.9 Hypotension, unspecified; Z93.1 Gastrostomy status; B96.5 Pseudomonas (aeruginosa) (mallei) (pseudomallei) as the cause of diseases classified elsewhere; R60.1 Generalized edema; E11.22 Type 2 diabetes mellitus with diabetic chronic kidney disease; N18.9 Chronic kidney disease, unspecified; I50.9 Heart failure, unspecified; E11.42 Type 2 diabetes mellitus with diabetic polyneuropathy; F39 Unspecified mood [affective] disorder; R13.10 Dysphagia, unspecified
CPT/HCPCS: 36415; 36430; 36569; 36600; 71045; 71260; 72170; 73020; 74018; 74150; 74176; 76937; 78806; 80048; 80053; 80150; 80200; 80202; 81003; 82270; 82533; 82607; 82728; 82746; 82803; 82962; 83010; 83540; 83605; 83615; 83735; 83880; 84100; 84132; 84134; 84145; 84443; 84478; 84484; 84560; 85014; 85018; 85025; 85049; 85362; 85378; 85384; 85610; 85670; 85730; 86022; 86850; 86900; 86901; 86920; 87070; 87075; 87081; 87086; 87102; 87116; 88304; 88305; 89220; 92523; 92950; 93005; 93306; 93308; 93970; 94002; 94003; 94640; 94664; 94799; 97110; 97162; 97163; 97530; A9570; C1751; C1769; C9113; J0133; J0171; J0278; J0360; J0692; J0696; J1120; J1200; J1450; J1650; J1720; J1815; J1940; J1956; J2060; J2175; J2185; J2270; J2370; J2405; J2543; J2765; J3010; J3260; J3370; J3475; J3480; J7030; J7040; J7050; J7070; J7120; J7512; P9016; P9045; P9047; Q9967